=== PATIENT | female | born 1965 | race Caucasian/White ===

== ENCOUNTER 2018-08-26 13:20 | Emergency (ER) | payer MEDICARE, BC ==
[~2018-08-26] VITALS: Ht 170.2 cm; Wt 78.5 kg
[~2018-08-26 13:20] MED LIST: AMLODIPINE BESY10 MG PO; GABAPENTIN300 MG PO; GLIPIZIDE10 MG PO; HYDROCODON-ACE1 EA10 PO; METOPROLOL SUCC25 MG PO; PANTOPRAZOLE SO40 MG PO; RENVELA800 MG PO
[2018-08-26] MEDS ORDERED: VITAMIN D1000 UNIT PO (13:34)
[2018-08-26] MEDS ORDERED: LOSARTAN POTASS50 MG PO (13:35)
--- NOTE | 2018-08-27 14:02 | EKG ---
[facility] [address] [facility] [address] [facility] [place], [place] [address] Signed Sinus rhythm with occasional premature ventricular complexes Otherwise normal ECG No previous ECGs available Confirmed by MINE FUCHS DO ([id number]) on 08/27/2018 2:02:36 PM Electronically Signed By: MINE FUCHS DO 08/27/18 1402 PATIENT NAME: STEVEN ARCE Electrocardiogram DATE OF : 67 PHYSICIAN: MINE FUCHS DO REPORT #: [id number] REPORT IS CONFIDENTIAL AND NOT TO BE RELEASED WITHOUT AUTHORIZATION
== END 2018-08-26 22:06 | disposition short-term general hospital (02) ==
LOC: ED 13:20
DX: T80.89XA Other complications following infusion, transfusion and therapeutic injection, initial encounter (principal); J81.1 Chronic pulmonary edema; E11.9 Type 2 diabetes mellitus without complications; I10 Essential (primary) hypertension; Z99.2 Dependence on renal dialysis; Z88.1 Allergy status to other antibiotic agents; Z88.5 Allergy status to narcotic agent; Z79.899 Other long term (current) drug therapy
CPT/HCPCS: 36600; 70450; 71046; 71260; 80053; 82803; 85025; 93005; 93010; 99285-25; Q9967

== ENCOUNTER 2019-01-14 11:11 | Emergency (ER) | payer MEDICARE, BC ==
[~2019-01-14] VITALS: Ht 170.2 cm; Wt 74.8 kg
--- OUTSIDE RECORDS SUMMARY | ~2019-01-14 | XMS | Encounter Summary ---
Demographics + + + | Address | [address] | | | [place] [address] | + + + | Home Phone | | + + + | Preferred Language | Unknown | + + + | Marital Status | Single | + + + | Religion Affiliation | Unknown | + + + | Race | Unknown | + + + | Ethnic Group | Other Race | + + + Author + + + | Author | [facility] | + + + | Organization | [facility] | + + + | Address | Unknown | + + + | Phone | Unavailable | + + + Care Team Providers + +------+ + | Care Criminalist Name | Role | Phone | + +------+ + PCP | Unavailable | + +------+ + Encounter Details +--------+ + + + + | Date | Type | Department | Care Team | Description | +--------+ + + + + | 10/16/ | Lab | LAB IMMUNOGENETIC | | | | 2015 | Requisition | AND TRANSPLANT LAB | | | | | | [address] | | | | | | [address] [place], | | | | | | [place] [address] | | | +--------+ + + + + Social History + +-------+ +--------+------+ | Tobacco Use | Types | Packs/Day | Years | Date | | | | | Used | | + +-------+ +--------+------+ | Never Assessed | | | | | + +-------+ +--------+------+ + + + | Sex Assigned at | Date Recorded | | | | + + + | Not on file | | + + + + + + + | Job Start Date | Occupation | Industry | + + + + | Not on file | Not on file | Not on file | + + + + + + + + | Travel History | Travel Start | Travel End | + + + + + + | No recent travel history available. | + + documented as of this encounter Plan of Treatment Not on filedocumented as of this encounter Procedures + +--------+ + + + | Procedure Name | Priori | Date/Time | Associated Diagnosis | Comments | | | ty | | | | + +--------+ + + + | LIT FLOW HLA AB PRA | Routin | 10/17/2015 | | | | SCREEN I/II | e | 2:21 PM | | | | | | PDT | | | + +--------+ + + + | LIT FLOW HLA II AB | Routin | 10/17/2015 | | | | AG ID, BLOOD | e | 2:21 PM | | | | | | PDT | | | + +--------+ + + + | LIT FLOW HLA I AB AG | Routin | 10/17/2015 | | Results for this | | ID, BLOOD | e | 2:21 PM | | procedure are in the | | | | PDT | | results section. | + +--------+ + + + documented in this encounter Results LIT FLOW HLA AB PRA SCREEN I/II (10/17/2015 2:21 PM PDT) + + | Specimen | + + | Blood - Blood | | (substance) | + + + + + + + | Performing | Address | City/State/Zipcode | Phone Number | | Organization | | | | + + + + + | [facility] - | [address] | [place] [address] | | | IMMUNOGENETICS/TRANS | [address] | | | | [facility] | | | | + + + + + LIT FLOW HLA II AB AG ID, BLOOD (10/17/2015 2:21 PM PDT) + + | Specimen | + + | Blood - Blood | | (substance) | + + + + + + + | Performing | Address | City/State/Zipcode | Phone Number | | Organization | | | | + + + + + | [facility] - | [address] | [place] [address] | | | IMMUNOGENETICS/TRANS | [address] | | | | [facility] | | | | + + + + + LIT FLOW HLA I AB AG ID, BLOOD (10/17/2015 2:21 PM PDT) + + + + + + | Component | Value | Ref Range | Performed | Pathologist | | | | | At | Signature | + + + + + + | LABEL ONLY | Please see lab report | | [facility] - | | | - LIT | for result. | | IMMUNOGENET | | | | | | ICS/TRANSPL | | | | | | ANT | | | | | | LABORATORY | | + + + + + + + + | Specimen | + + | Blood - Blood | | (substance) | + + + + + + + | Performing | Address | City/State/Zipcode | Phone Number | | Organization | | | | + + + + + | [facility] - | [address] | [place] [address] | | | IMMUNOGENETICS/TRANS | [address] | | | | [facility] LAB[facility] | | | | + + + + + documented in this encounter Visit Diagnoses Not on filedocumented in this encounter"
--- OUTSIDE RECORDS SUMMARY | ~2019-01-14 | XMS | Encounter Summary ---
Demographics + + + | Address | [address] | | | [place] [address] | + + + | Home Phone | | + + + | Preferred Language | Unknown | + + + | Marital Status | Single | + + + | Jewish Affiliation | Unknown | + + + | Race | Unknown | + + + | Ethnic Group | Other Race | + + + Author + + + | Author | [facility] | + + + | Organization | [facility] | + + + | Address | Unknown | + + + | Phone | Unavailable | + + + Care Team Providers + +------+ + | Care Associate Chemist Name | Role | Phone | + +------+ + PCP | Unavailable | + +------+ + Encounter Details +--------+ + + + + | Date | Type | Department | Care Team | Description | +--------+ + + + + | 03/11/ | Lab | LAB IMMUNOGENETIC | | | | 2014 | Requisition | AND TRANSPLANT LAB | | | | | | [address] | | | | | | [address] [place], | | | | | | [place] [address] | | | +--------+ + + + [...] FLOW HLA AB PRA | Routin | 03/11/2015 | | | | SCREEN I/II | e | 9:14 AM | | | | | | PST | | | + +--------+ + + + documented in this encounter Results LIT FLOW HLA AB PRA SCREEN I/II (03/11/2015 9:14 AM PST) + + | Specimen | + + | Blood - Blood | | (substance) | + + + + + + + | Performing | Address | City/State/Zipcode | Phone Number | | Organization | | | | + + + + + | [facility] - | [address] | [place] [address] | | | IMMUNOGENETICS/TRANS | [address] | | | | [facility] | | | | + + + + + documented in this encounter Visit Diagnoses Not on filedocumented in this encounter"
--- OUTSIDE RECORDS SUMMARY | ~2019-01-14 | XMS | Encounter Summary ---
Demographics + + + | Address | [address] | | | [place] [address] | + + + | Home Phone | | + + + | Preferred Language | Unknown | + + + | Marital Status | Single | + + + | Tenriism Affiliation | Unknown | + + + | Race | Unknown | + + + | Ethnic Group | Other Race | + + + Author + + + | Author | [facility] | + + + | Organization | [facility] | + + + | Address | Unknown | + + + | Phone | Unavailable | + + + Care Team Providers + +------+ + | Care Highway Painter Helper Name | Role | Phone | + +------+ + PCP | Unavailable | + +------+ + Encounter Details +--------+ + + + + | Date | Type | Department | Care Team | Description | +--------+ + + + + | 06/22/ | Lab | LAB IMMUNOGENETIC | | | | 2018 | Requisition | AND TRANSPLANT LAB | | | | | | [address] | | | | | | [address] [place], | | | | | | [place] [address] | | | +--------+ + + + [...] FLOW HLA AB PRA | Routin | 06/13/2018 | | | | SCREEN I/II | e | 12:00 AM | | | | | | PDT | | | + +--------+ + + + documented in this encounter Results LIT FLOW HLA AB PRA SCREEN I/II (06/13/2018 12:00 AM PDT) + + | Specimen | + + | Blood - Blood | | (substance) | + + + + + + + | Performing | Address | City/State/Zipcode | Phone Number | | Organization | | | | + + + + + | [facility] - | [address] | [place] [address] | | | IMMUNOGENETICS/TRANS | [address] | | | | [facility] | | | | + + + + + documented in this encounter Visit Diagnoses Not on filedocumented in this encounter"
--- OUTSIDE RECORDS SUMMARY | ~2019-01-14 | XMS | Encounter Summary ---
Demographics + + + | Address | [address] | | | [place] [address] | + + + | Home Phone | | + + + | Preferred Language | Unknown | + + + | Marital Status | Single | + + + | Congregation Affiliation | Unknown | + + + | Race | Unknown | + + + | Ethnic Group | Other Race | + + + Author + + + | Author | [facility] | + + + | Organization | [facility] | + + + | Address | Unknown | + + + | Phone | Unavailable | + + + Care Team Providers + +------+ + | Care Housing Assistant Name | Role | Phone | + +------+ + PCP | Unavailable | + +------+ + Encounter Details +--------+ + + + + | Date | Type | Department | Care Team | Description | +--------+ + + + + | 09/28/ | Lab | LAB IMMUNOGENETIC | | | | 2016 | Requisition | AND TRANSPLANT LAB | | | | | | [address] | | | | | | [address] [place], | | | | | | [place] [address] | | | +--------+ + + + [...] FLOW HLA II AB | Routin | 09/16/2016 | | | | AG ID, BLOOD | e | 2:17 PM | | | | | | PDT | | | + +--------+ + + + documented in this encounter Results LIT FLOW HLA II AB AG ID, BLOOD (09/16/2016 2:17 PM PDT) + + | Specimen | + + | Blood - Blood | | (substance) | + + + + + + + | Performing | Address | City/State/Zipcode | Phone Number | | Organization | | | | + + + + + | [facility] - | [address] | [place] [address] | | | IMMUNOGENETICS/TRANS | [address] | | | | [facility] | | | | + + + + + documented in this encounter Visit Diagnoses Not on filedocumented in this encounter"
--- OUTSIDE RECORDS SUMMARY | ~2019-01-14 | XMS | Encounter Summary ---
Demographics + + + | Address | [address] | | | [place] [address] | + + + | Home Phone | | + + + | Preferred Language | Unknown | + + + | Marital Status | Single | + + + | Uatsdin Affiliation | Unknown | + + + | Race | Unknown | + + + | Ethnic Group | Other Race | + + + Author + + + | Author | [facility] | + + + | Organization | [facility] | + + + | Address | Unknown | + + + | Phone | Unavailable | + + + Care Team Providers + +------+ + | Care Dealer Development Manager Name | Role | Phone | + +------+ + PCP | Unavailable | + +------+ + Encounter Details +--------+ + + + + | Date | Type | Department | Care Team | Description | +--------+ + + + + | 08/19/ | Lab | LAB IMMUNOGENETIC | | | | 2015 | Requisition | AND TRANSPLANT LAB | | | | | | [address] | | | | | | [address] [place], | | | | | | [place] [address] | | | +--------+ + + + [...] FLOW HLA AB PRA | Routin | 08/20/2015 | | | | SCREEN I/II | e | 2:18 PM | | | | | | PDT | | | + +--------+ + + + documented in this encounter Results LIT FLOW HLA AB PRA SCREEN I/II (08/20/2015 2:18 PM PDT) + + | Specimen | + + | Blood - Blood | | (substance) | + + + + + + + | Performing | Address | City/State/Zipcode | Phone Number | | Organization | | | | + + + + + | [facility] - | [address] | [place] [address] | | | IMMUNOGENETICS/TRANS | [address] | | | | [facility] | | | | + + + + + documented in this encounter Visit Diagnoses Not on filedocumented in this encounter"
--- OUTSIDE RECORDS SUMMARY | ~2019-01-14 | XMS | Encounter Summary ---
Demographics + + + | Address | [address] | | | [place] [address] | + + + | Home Phone | | + + + | Preferred Language | Unknown | + + + | Marital Status | | + + + | Congregational Affiliation | 1077 | + + + | Race | Unknown | + + + | Ethnic Group | Unknown | + + + Author + + + | Author | [facility] (Historical as of | | | 10-29-18) | + + + | Organization | [facility] (Historical as of | | | 10-29-18) | + + + | Address | Unknown | + + + | Phone | Unavailable | + + + Support + + +---------+ + | Name | Relationship | Address | Phone | + + +---------+ + | Eron Sheth | ECON | Unknown | | + + +---------+ + Care Team Providers + +------+ + | Care Warp Tying Machine Tender Name | Role | Phone | + +------+ + | Arron Buckner MD | PCP | Unavailable | + +------+ + Reason for Visit + + + | Reason | Comments | + + + | End Stage Renal | | | Disease | | + + + Encounter Details +--------+---------+ + + + | Date | Type | Department | Care Team | Description | +--------+---------+ + + + | 10/27/ | Office | [facility] | Nelsy Hernandez | End stage renal | | 2019 | Visit | Nephrology [address] | MD [address] | failure on dialysis | | | | [address] [facility] | [facility] | (HCC) (Primary Dx) | | | | [place] | [place] | | | | | [address] | [address] | | | | | [phone] | [phone] | | | | | | | | +--------+---------+ + + + Social History + +-------+ +--------+------+ | Tobacco Use | Types | Packs/Day | Years | Date | | | | | Used | | + +-------+ +--------+------+ | Never Smoker | | | | | + +-------+ +--------+------+ + +---+---+---+ | Smokeless Tobacco: | | | | | Never Used | | | | + +---+---+---+ + + +---------+ + | Alcohol Use | Drinks/We | oz/Week | Comments | | | ek | | | + + +---------+ + | No | | | | + + +---------+ + + + + | Sex Assigned at | Date Recorded | | | | + + + | Not on file | | + + + as of this encounter Last Filed Vital Signs + + + + | Vital Sign | Reading | Time Taken | + + + + | Blood Pressure | 151/73 | 10/27/2018 1:56 PM PDT | + + + + | Pulse | 63 | 10/27/2018 1:56 PM PDT | + + + + | Temperature | - | - | + + + + | Respiratory Rate | - | - | + + + + | Oxygen Saturation | 96% | 10/27/2018 1:56 PM PDT | + + + + | Inhaled Oxygen | - | - | | Concentration | | | + + + + | Weight | 78.4 kg (172 lb 12.8 | 10/27/2018 1:56 PM PDT | | | oz) | | + + + + | Height | 170.2 cm (5' 7") | 10/27/2018 1:56 PM PDT | + + + + | Body Mass Index | 27.06 | 10/27/2018 1:56 PM PDT | + + + + in this encounter Progress Notes Nelsy Hernandez MD - 10/27/2018 2:00 PM PDTFormatting of this note may be different fr om the original. [facility] visit for ESRD Subjective: Ms. Marie Abdi presents for Comprehensive monthly face to face evaluation. she is currently on dialysis for ESRD. Full note is documented in dialysis facility EMR . MEDS AND LABS ARE REVIEWED from monthly labs drawn at his dialysis facility for this month Current Outpatient Prescriptions: amLODIPine (NORVASC) 10 MG tablet, Take 1 tablet by mouth daily., Disp: 90 tablet, Rfl : 3 folic acid (FOLVITE) 1 MG tablet, folic acid 1 mg tablet Take 1 tablet every day by o ral route., Disp: , Rfl: gabapentin (NEURONTIN) 300 MG capsule, Take 300 mg by mouth 3 (three) times daily. Ind ications: Neuropathic Pain, Disp: , Rfl: glipiZIDE (GLUCOTROL) 10 MG tablet, Take 10 mg by mouth 2 (two) times daily before ata ls., Disp: , Rfl: hydrALAZINE (APRESOLINE) 25 MG tablet, Take 1 tablet by mouth 3 (three) times daily., Disp: 270 tablet, Rfl: 3 losartan (COZAAR) 100 MG tablet, Take 1 tablet by mouth daily., Disp: 90 tablet, Rfl: 3 MICROLET LANCETS MISC, Microlet Lancet, Disp: , Rfl: pantoprazole (PROTONIX) 20 MG tablet, Take 40 mg by mouth every morning before breakfa st., Disp: , Rfl: sevelamer (RENVELA) 800 MG tablet, Take 3 tablets by mouth 3 (three) times daily with meals., Disp: 810 tablet, Rfl: 3 VITAMIN D, CHOLECALCIFEROL, PO, Take 1,000 Units by mouth daily., Disp: , Rfl: Allergies Allergen Reactions Amoxicillin Rash and Nausea Only Filgrastim Other (See Comments) and Nausea and Vomiting DIARRHEA Nsaids Other (See Comments) Kidney transplant Codeine Headache and Nausea and Vomiting Headache Hydromorphone Nausea and Vomiting and Nausea Only DIZZINESS Current Outpatient Prescriptions: amLODIPine (NORVASC) 10 MG tablet, Take 1 tablet by mouth daily., Disp: 90 tablet, Rfl : 3 folic acid (FOLVITE) 1 MG tablet, folic acid 1 mg tablet Take 1 tablet every day by o ral route., Disp: , Rfl: gabapentin (NEURONTIN) 300 MG capsule, Take 300 mg by mouth 3 (three) times daily. Ind ications: Neuropathic Pain, Disp: , Rfl: glipiZIDE (GLUCOTROL) 10 MG tablet, Take 10 mg by mouth 2 (two) times daily before ata ls., Disp: , Rfl: hydrALAZINE (APRESOLINE) 25 MG tablet, Take 1 tablet by mouth 3 (three) times daily., Disp: 270 tablet, Rfl: 3 losartan (COZAAR) 100 MG tablet, Take 1 tablet by mouth daily., Disp: 90 tablet, Rfl: 3 MICROLET LANCETS MISC, Microlet Lancet, Disp: , Rfl: pantoprazole (PROTONIX) 20 MG tablet, Take 40 mg by mouth every morning before breakfa st., Disp: , Rfl: sevelamer (RENVELA) 800 MG tablet, Take 3 tablets by mouth 3 (three) times daily with meals., Disp: 810 tablet, Rfl: 3 VITAMIN D, CHOLECALCIFEROL, PO, Take 1,000 Units by mouth daily., Disp: , Rfl: Physical Exam Blood pressure 151/73, pulse 63, height 1.702 m (5' 7"), weight 78.4 kg (172 lb 12.8 oz), S pO2 96 %. Access: has an AVf in right upper extremity with good thrill and bruit. Assessment and Plan: The following issues were identified and documented in dialysis facil ity EMR. 1. End-stage renal disease: We will continue the patient on dialysis as prescribed. . KT/ v is being monitored and parameters adjusted accordingly. 2. Access: AVF is being used successfully. 3. Blood pressure: We will monitor this during dialysis treatment. Not cotroled now. 4. Anemia Hb is monitored closely; Iron studies are adequate. adjust Epo per dialysis unit protocol. 5. Secondary hyperparathyroidism (PTH Goal 150-600): will be managed per dialysis unit s protocol. 6. Nutrition ( desired albumin above 3.5): Encouraged high protein intake and achieving 3 meals/ day 7. CA/PHOS control: adjust binders and vit d analogue per unit's protocol. 8. ASSESSMENT FOR pd CATHETER PLACEMENT; NOT A CANDIDATE DUE TO ADHESIONS. for further discussion please obtain EMR records through dialysis facility . NELSY HERNANDEZ MD, FASN, FACPin this encounter Plan of Treatment +--------+---------+ + + + | Date | Type | Specialty | Care Team | Description | +--------+---------+ + + + | 02/02/ | Office | Nephrology | Nelsy Hernandez | | | 2018 | Visit | | MD [address] | | | | | | [facility] [place] | | | | | | [place] | | | | | | [address] | | | | | | [phone] | | | | | | | | +--------+---------+ + + + | 03/02/ | Office | Nephrology | Nelsy Hernandez | | | 2018 | Visit | | MD [address] | | | | | | [facility] [place] | | | | | | [place] | | | | | | [address] | | | | | | [phone] | | | | | | | | +--------+---------+ + + + as of this encounter Visit Diagnoses + + | Diagnosis | + + | End stage renal failure on dialysis (HCC) - Primary | + + | End stage renal disease | + +
--- OUTSIDE RECORDS SUMMARY | ~2019-01-14 | XMS | Encounter Summary ---
Demographics + + + | Address | [address] | | | [place] [address] | + + + | Home Phone | | + + + | Preferred Language | Unknown | + + + | Marital Status | Single | + + + | Church Affiliation | Unknown | + + + | Race | Unknown | + + + | Ethnic Group | Other Race | + + + Author + + + | Author | [facility] | + + + | Organization | [facility] | + + + | Address | Unknown | + + + | Phone | Unavailable | + + + Care Team Providers + +------+ + | Care Project Production Engineer Name | Role | Phone | + +------+ + PCP | Unavailable | + +------+ + Encounter Details +--------+ + + + + | Date | Type | Department | Care Team | Description | +--------+ + + + + | 08/18/ | Lab | LAB IMMUNOGENETIC | | | | 2018 | Requisition | AND TRANSPLANT LAB | | | | | | [address] | | | | | | [address] [place], | | | | | | [place] [address] | | | +--------+ + + + [...] FLOW HLA AB PRA | Routin | 08/13/2017 | | | | SCREEN I/II | e | 12:00 AM | | | | | | PDT | | | + +--------+ + + + documented in this encounter Results LIT FLOW HLA AB PRA SCREEN I/II (08/13/2017 12:00 AM PDT) + + | Specimen | + + | Blood - Blood | | (substance) | + + + + + + + | Performing | Address | City/State/Zipcode | Phone Number | | Organization | | | | + + + + + | [facility] - | [address] | [place] [address] | | | IMMUNOGENETICS/TRANS | [address] | | | | [facility] | | | | + + + + + documented in this encounter Visit Diagnoses Not on filedocumented in this encounter"
--- OUTSIDE RECORDS SUMMARY | ~2019-01-14 | XMS | Encounter Summary ---
Demographics + + + | Address | [address] | | | [place] [address] | + + + | Home Phone | | + + + | Preferred Language | Unknown | + + + | Marital Status | Single | + + + | Mormonism Affiliation | Unknown | + + + | Race | Unknown | + + + | Ethnic Group | Other Race | + + + Author + + + | Author | [facility] | + + + | Organization | [facility] | + + + | Address | Unknown | + + + | Phone | Unavailable | + + + Care Team Providers + +------+ + | Care Sustainable Landscape Architect Name | Role | Phone | + +------+ + PCP | Unavailable | + +------+ + Encounter Details +--------+ + + + + | Date | Type | Department | Care Team | Description | +--------+ + + + + | 07/21/ | Lab | LAB IMMUNOGENETIC | | | | 2018 | Requisition | AND TRANSPLANT LAB | | | | | | [address] | | | | | | [address] [place], | | | | | | [place] [address] | | | +--------+ + + + [...] FLOW HLA AB PRA | Routin | 07/21/2017 | | | | SCREEN I/II | e | 11:11 AM | | | | | | PDT | | | + +--------+ + + + documented in this encounter Results LIT FLOW HLA AB PRA SCREEN I/II (07/21/2017 11:11 AM PDT) + + | Specimen | + + | Blood - Blood | | (substance) | + + + + + + + | Performing | Address | City/State/Zipcode | Phone Number | | Organization | | | | + + + + + | [facility] - | [address] | [place] [address] | | | IMMUNOGENETICS/TRANS | [address] | | | | [facility] | | | | + + + + + documented in this encounter Visit Diagnoses Not on filedocumented in this encounter"
--- OUTSIDE RECORDS SUMMARY | ~2019-01-14 | XMS | Encounter Summary ---
Demographics + + + | Address | [address] | | | [place] [address] | + + + | Home Phone | | + + + | Preferred Language | Unknown | + + + | Marital Status | Single | + + + | Taoist Affiliation | Unknown | + + + [...] Team Providers + +------+ + | Care Quality Control Assistant Name | Role | Phone | + +------+ + PCP | Unavailable | + +------+ + Encounter Details +--------+ + + + + | Date | Type | Department | Care Team | Description | +--------+ + + + + | 04/02/ | Lab | LAB IMMUNOGENETIC | | | | 2015 | Requisition | AND TRANSPLANT LAB | | | | | | [address] | | | | | | [address] [place], | | | | | | [place] [address] | | | +--------+ + + + [...] FLOW HLA AB PRA | Routin | 04/02/2015 | | | | SCREEN I/II | e | 2:07 PM | | | | | | PST | | | + +--------+ + + + documented in this encounter Results LIT FLOW HLA AB PRA SCREEN I/II (04/02/2015 2:07 PM PST) + + | Specimen | + + | Blood - Blood | | (substance) | + + + + + + + | Performing | Address | City/State/Zipcode | Phone Number | | Organization | | | | + + + + + | [facility] - | [address] | [place] [address] | | | IMMUNOGENETICS/TRANS | [address] | | | | [facility] | | | | + + + + + documented in this encounter Visit Diagnoses Not on filedocumented in this encounter"
--- OUTSIDE RECORDS SUMMARY | ~2019-01-14 | XMS | Encounter Summary ---
Demographics + + + | Address | [address] | | | [place] [address] | + + + | Home Phone | | + + + | Preferred Language | Unknown | + + + | Marital Status | Single | + + + | Gnosticism Affiliation | Unknown | + + + | Race | Unknown | + + + | Ethnic Group | Other Race | + + + Author + + + | Author | [facility] | + + + | Organization | [facility] | + + + | Address | Unknown | + + + | Phone | Unavailable | + + + Care Team Providers + +------+ + | Care Rock Contractor Name | Role | Phone | + +------+ + PCP | Unavailable | + +------+ + Encounter Details +--------+ + + + + | Date | Type | Department | Care Team | Description | +--------+ + + + + | 10/20/ | Lab | LAB [facility] | | | | 2016 | Requisition | [facility] | | | | | | [address] | | | | | | [address] [place], | | | | | | [place] [address] | | | +--------+ + + + [...] FLOW HLA AB PRA | Routin | 10/20/2016 | | | | SCREEN I/II | e | 7:32 AM | | | | | | PDT | | | + +--------+ + + + | LIT FLOW HLA II AB | Routin | 10/20/2016 | | | | AG ID, BLOOD | e | 7:32 AM | | | | | | PDT | | | + +--------+ + + + | LIT FLOW HLA I AB AG | Routin | 10/20/2016 | | Results for this | | ID, BLOOD | e | 7:32 AM | | procedure are in the | | | | PDT | | results section. | + +--------+ + + + documented in this encounter Results LIT FLOW HLA AB PRA SCREEN I/II (10/20/2016 7:32 AM PDT) + + | Specimen | + + | Blood - Blood | | (substance) | + + + + + + + | Performing | Address | City/State/Zipcode | Phone Number | | Organization | | | | + + + + + | [facility] - | [address] | [place] [address] | | | IMMUNOGENETICS/TRANS | [address] | | | | [facility] | | | | + + + + + LIT FLOW HLA II AB AG ID, BLOOD (10/20/2016 7:32 AM PDT) + + | Specimen | + + | Blood - Blood | | (substance) | + + + + + + + | Performing | Address | City/State/Zipcode | Phone Number | | Organization | | | | + + + + + | [facility] - | [address] | [place] [address] | | | IMMUNOGENETICS/TRANS | [address] | | | | [facility] | | | | + + + + + LIT FLOW HLA I AB AG ID, BLOOD (10/20/2016 7:32 AM PDT) + + + + + + [...] + + + | [facility] - | [address] | [place] [address] | | | IMMUNOGENETICS/TRANS | [address] | | | | [facility] | | | | + + + + + documented in this encounter Visit Diagnoses Not on filedocumented in this encounter"
--- OUTSIDE RECORDS SUMMARY | ~2019-01-14 | XMS | Clinical Summary ---
Demographics + + + | Address | [address] | | | [place] [address] | + + + | Home Phone | | + + + | Preferred Language | Unknown | + + + | Marital Status | | + + + | Hoahaoism Affiliation | 1077 | + + + | Race | Unknown | + + + | Ethnic Group | Unknown | + + + Author + + + | Author | [facility] | | | and [place] | + + + | Organization | [facility] | | | and [place] | + + + | Address | Unknown | + + + | Phone | Unavailable | + + + Support + + + + + | Name | Relationship | Address | Phone | + + + + + | Eron Abdi | ECON | [address] | | | | [place], | | | | | [place] [address] | | + + + + + | Eron Sheth | ECON | Unknown | | + + + + + Care Team Providers + +------+ + | Care Lead Ruby On Rails Developer Name | Role | Phone | + +------+ + | Arron Buckner MD | PCP | Unavailable | + +------+ + Allergies + + + + + + | Active Allergy | Reactions | Severity | Noted | Comments | | | | | Date | | + + + + + + | Amoxicillin | Nausea Only, Rash | Medium | | | + + + + + + | Codeine Sulfate | Nausea And Vomiting | Low | | Headache | + + + + + + | Filgrastim Injection | Nausea And Vomiting | Low | 05/23/19 | DIARRHEA | | | | | 14 | | + + + + + + | Hydromorphone Hcl | Nausea Only | Low | | DIZZINESS | + + + + + + | Nsaids | | | 05/03/19 | Kidney transplant | | | | | 14 | | + + + + + + Medications + + + +---------+------+------+-------+ | Medication | Sig | Dispensed | Refills | Star | End | Statu | | | | | | t | Date | s | | | | | | Date | | | + + + +---------+------+------+-------+ | cholecalciferol | Take 1,000 Units by | | 0 | 11/13 | | Activ | | (VITAMIN D-3) 1,000 | mouth Daily. | | | 07/02 | | e | | units tablet | | | | 12 | | | + + + +---------+------+------+-------+ | gabapentin | Take 600 mg by mouth | | 0 | | | Activ | | (NEURONTIN) 300 mg | 3 times daily. | | | | | e | | capsule | | | | | | | + + + +---------+------+------+-------+ | glipiZIDE | Take 10 mg by mouth | | 0 | 11/13 | | Activ | | (GLUCOTROL) 10 MG | every morning | | | 07/02 | | e | | tablet | (before breakfast). | | | 12 | | | + + + +---------+------+------+-------+ | | Take 1 tablet by | | 0 | | | Activ | | HYDROcodone-acetamin | mouth 3 times daily. | | | | | e | | ophen (NORCO) 5-325 | | | | | | | | mg per tablet | | | | | | | + + + +---------+------+------+-------+ | amLODIPine | Take 10 mg by mouth | | 0 | | | Activ | | (NORVASC) 10 MG | Daily. | | | | | e | | tablet | | | | | | | + + + +---------+------+------+-------+ | sevelamer | Take 2,400 mg by | | 0 | | | Activ | | carbonate (RENVELA) | mouth 3 times daily | | | | | e | | 800 mg tablet | (with meals). With | | | | | | | | meals | | | | | | + + + +---------+------+------+-------+ | pantoprazole | Take 40 mg by mouth | | 0 | | | Activ | | (PROTONIX) 20 mg | every morning | | | | | e | | tablet | (before breakfast). | | | | | | + + + +---------+------+------+-------+ | sevelamer | Take 1,600 mg by | | 0 | | | Activ | | carbonate (RENVELA) | mouth. With snacks | | | | | e | | 800 mg tablet | | | | | | | + + + +---------+------+------+-------+ | metoprolol | Take 25 mg by mouth | | 0 | | | Activ | | succinate | Daily. | | | | | e | | (TOPROL-XL) 25 mg 24 | | | | | | | | hr tablet | | | | | | | + + + +---------+------+------+-------+ | azithromycin | Take 250 mg by mouth | | 0 | | | Activ | | (ZITHROMAX) 250 mg | Daily. Take 2 | | | | | e | | tablet | tablets now then one | | | | | | | | daily for 4 days | | | | | | + + + +---------+------+------+-------+ | cefdinir (OMNICEF) | Take 1 capsule by | 4 | 0 | 05/1 | | Activ | | 300 mg | mouth Daily. | capsule | | 3/20 | | e | | capsuleIndications: | Indications: | | | 18 | | | | Community Acquired | Community Acquired | | | | | | | Pneumonia | Pneumonia | | | | | | + + + +---------+------+------+-------+ | Folic Acid-Vit | Take 5 mg by mouth | | 0 | | | Activ | | B6-Vit B12 (FOLBEE | daily. | | | | | e | | PO) | | | | | | | + + + +---------+------+------+-------+ | folic acid 1 mg | folic acid 1 mg | | 0 | | | Activ | | tablet | tablet Take 1 tablet | | | | | e | | | every day by oral | | | | | | | | route. | | | | | | + + + +---------+------+------+-------+ | Folic Acid-Vit | Take 1 tablet by | | 0 | | | Activ | | B6-Vit B12 (FOLBEE) | mouth daily | | | | | e | | 2.5-25-1 MG TABS | | | | | | | + + + +---------+------+------+-------+ | hydrALAZINE | Take 1 tablet by | | 0 | 08/13 | 08/13 | Activ | | (APRESOLINE) 25 mg | mouth 3 (three) | | | 11/01 | 10/01 | e | | tablet | times daily. | | | 19 | 20 | | + + + +---------+------+------+-------+ | MICROLET LANCETS | Microlet Lancet | | 0 | | | Activ | | MISC | | | | | | e | + + + +---------+------+------+-------+ | losartan (COZAAR) | Take 1 tablet by | | 0 | 08/13 | 08/13 | Activ | | 100 MG tablet | mouth daily. | | | 8/20 | 10/01 | e | | | | | | 19 | 20 | | + + + +---------+------+------+-------+ | amLODIPine | amlodipine 5 mg | | 0 | | | Activ | | (NORVASC) 5 mg | tablet 1 PO QD | | | | | e | | tablet | | | | | | | + + + +---------+------+------+-------+ | metoprolol | Toprol XL 25 mg | | 0 | | | Activ | | succinate | tablet,extended | | | | | e | | (TOPROL-XL) 25 mg 24 | release 1 PO QD | | | | | | | hr tablet | | | | | | | + + + +---------+------+------+-------+ | sevelamer | Take 3 tablets by | | 0 | 02/0 | | Activ | | carbonate (RENVELA) | mouth 3 (three) | | | 8/20 | | e | | 800 mg tablet | times daily with | | | 19 | | | | | meals. | | | | | | + + + +---------+------+------+-------+ | B Kiyrmqf-A-Zbpgo | | | 0 | 06/0 | | Activ | | Acid (FOLBEE PLUS) | | | | 9/20 | | e | | TABS | | | | 19 | | | + + + +---------+------+------+-------+ | ciprofloxacin | | | 0 | 01/0 | | Activ | | (CIPRO) 500 mg | | | | 7/20 | | e | | tablet | | | | 19 | | | + + + +---------+------+------+-------+ | CIPRODEX otic | | | 0 | 11/0 | | Activ | | suspension | | | | 8/20 | | e | | | | | | 18 | | | + + + +---------+------+------+-------+ | | | | 0 | 11/0 | | Activ | | sulfamethoxazole-tri | | | | 1/20 | | e | | methoprim | | | | 18 | | | | (BACTRIM,SEPTRA) | | | | | | | | 400-80 MG per tablet | | | | | | | + + + +---------+------+------+-------+ Active Problems + + + | Problem | Noted Date | + + + | Lila santos | 10/11/2015 | + + + | Jesenia | 02/05/2015 | + + + + + | Overview: Last Assessment & Plan: No significant valvular | | pathology identified no further evaluation needed insuring | | echocardiogram | + + + + + | Essential hypertension | 02/05/2015 | + + + + + | Overview: Overview: | | Overview: | | ICD-10 Record update | | | | Last Assessment & Plan: | | Well-controlled on current therapy she will continue | + + + + + | End stage renal failure on dialysis | 05/08/2014 | + + + + + | Overview: Last Assessment & Plan: She is being evaluated for | | renal transplantation we'll perform coronary angiography | | abdominal aortography and bilateral iliac runoff hopefully we | | will not find obstructive atherosclerotic plaque and we will be | | able to clear her from a coronary disease standpoint | + + + + + | Cancer, Skin, Basal Cell | 01/12/2013 | + + + + + | Overview: ICD-10 Record update | | | | Overview: | | Overview: | | ICD-10 Record update | + + + + + | Hyperlipidemia | 01/12/2013 | + + + | Gout | 01/12/2013 | + + + + + | Overview: ICD-10 Record update | + + + + + | Anemia in CKD (chronic kidney disease) | 01/12/2013 | + + + + + | Overview: ICD-10 Record update | + + + + + | GERD | 01/12/2013 | + + + | Osteopenia, drug induced | 01/12/2013 | + + + | 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 | + + + + + | Overview: ?Familial hereditary nephritis | | | | Overview: | | Overview: | | ?Familial hereditary nephritis | + + + +---+ | Type 2 diabetes mellitus with nephropathy | | + +---+ | History of kidney transplant | | + +---+ + + | Overview: (V67.0) Dec donor | | | | Overview: | | Overview: | | (V67.0) Dec donor | + + Resolved Problems + + + + | Problem | Noted | Resolved | | | Date | Date | + + + + | HCAP (healthcare-associated pneumonia) | 07/22/19 | | | | 18 | 9 | + + + + | Tachycardia | 02/05/20 | | | | 16 | 9 | + + + + + + | Overview: Last Assessment & Plan: She appears to have an | | element of sinus tachycardia her heart rate came down nicely with | | rest. I suspect that this is appropriate tachycardia I've asked | | her to increase her volume intake she does not appear infected | | now and we do not think she has significant cardiac pathology I | | would continue to watch at this point this does not appear to be | | atrial fibrillation or a PSVT | + + + + + + | Type 2 diabetes mellitus | 02/04/20 | | | | 16 | 9 | + + + + | Tendonitis of elbow, left | 07/19/19 | | | | 16 | 9 | + + + + | Tendinitis of elbow or forearm | 07/19/19 | | | | 16 | 9 | + + + + | End stage renal disease | 07/17/19 | | | | 16 | 9 | + + + + | Septic arthritis of right foot | 07/17/19 | | | | 16 | 9 | + + + + | Pyogenic arthritis | 07/17/19 | | | | 16 | 9 | + + + + | Hypertension | 01/13/20 | | | | 13 | 9 | + + + + + + | Overview: ICD-10 Record update | + + + + + + | Kidney mass | 01/13/20 | | | | 13 | 9 | + + + + | Proteinuria | 01/13/20 | | | | 13 | 9 | + + + + + + | Overview: Onset 2008 | + + + + + + | Rejection, Chronic | 01/13/20 | | | | 13 | 9 | + + + + + + | Overview: ICD-10 Record update | + + + + + + | Immunosuppression: Prophylactic immunotherapy | 01/13/20 | | | | 13 | 9 | + + + + + + | Overview: d/c steroid - late self directed, Thymo induction, | | MMF, TAC and pred, OKT3 induction | + + + +---+ + | Pancytopenia | | | | | | 9 | + +---+ + + + | Overview: ICD-10 Record update | + + + +---+ + | Care after organ transplant | | | | | | 9 | + +---+ + Encounters +--------+---------+ + + + | Date | Type | Specialty | Care Team | Description | +--------+---------+ + + + | 01/03/ | Office | Nephrology | Chantelle Aly | End stage renal | | 2019 | Visit | | MD Denise | failure on dialysis | | | | | | ([facility] (Primary Dx) | +--------+---------+ + + + from Last 3 Months Immunizations + + + + | Name | Dates Previously Given | Next Due | + + + + | HEP B, 3 DOSE | 06/01/2014, 02/05/2014, 01/01/2014, | | | (ADULT) | 12/07/2013 | | + + + + | INFLUENZA PF 19 Y OR | 12/13/2014 | | | >,QUADRIVALENT | | | | RECOMBINANT | | | + + + + | INFLUENZA TRIV | 12/13/2016, 01/12/2014, 01/12/2014 | | | W/PRES(PED/ADOL/ADUL | | | | T),MULTIDOSE | | | + + + + | INFLUENZA, | 12/13/2016, 01/12/2014 | | | UNSPECIFIED | | | | FORMULATION | | | + + + + | PNEUMOCOCCAL | 12/13/2014 | | | CONJUGATE 13-VALENT | | | | (PCV13) | | | + + + + | PNEUMOCOCCAL | 12/04/2013 | | | POLYSACCHARIDE | | | | 23-VALENT (PPSV23) | | | + + + + | TDAP, (ADOL/ADULT) | 03/05/2015, 06/29/2013 | | + + + + Family History + + +---------+ + | Medical History | Relation | Name | Comments | + + +---------+ + | Cancer | Maternal | | | | | Grandmoth | | | | | er | | | + + +---------+ + | Anesth problems | Mother | MADELON | | + + +---------+ + | Other (see comment) | Mother | MADELON | | + + +---------+ + | Kidney disease | Mother | MADELON | | + + +---------+ + | Cancer | Paternal | | | | | Grandfath | | | | | er | | | + + +---------+ + | Cancer | Paternal | | | | | Grandmoth | | | | | er | | | + + +---------+ + | Malig hypertherm | Neg Hx | | | + + +---------+ + + +---------+ + + | Relation | Name | Status | Comments | + +---------+ + + | Father | | | | + +---------+ + + | Maternal Grandmother | | | | + +---------+ + + | Mother | MADELON | | | + +---------+ + + | Mother | MADELON | | | + +---------+ + + | Mother | MADELON | | | + +---------+ + + | Paternal Grandfather | | | | + +---------+ + + | Paternal Grandmother | | | | + +---------+ + + Social History + +-------+ +--------+------+ [...] recent travel history available. | + + Last Filed Vital Signs + + + + | Vital Sign | Reading | Time Taken | + + + + | Blood Pressure | 122/60 | 01/03/20191246 PDT | + + + + | Pulse | 52 | 01/03/20191246 PDT | + + + + | Temperature | 36.3 C (97.4 F) | 05/31/20181553 PDT | + + + + | Respiratory Rate | 16 | 05/31/20181553 PDT | + + + + | Oxygen Saturation | 98% | 01/03/20191246 PDT | + + + + | Inhaled Oxygen | - | - | | Concentration | | | + + + + | Weight | 81.9 kg (180 lb 9.6 | 01/03/2019 1247 PDT | | | oz) | | + + + + | Height | 170.2 cm (5' 7") | 10/27/2018 1359 PDT | + + + + | Body Mass Index | 28.29 | 10/27/2018 1359 PDT | + + + + Plan of Treatment +--------+---------+ + + + | Date | Type | Specialty | Care Team | Description | +--------+---------+ + + + | 02/02/ | Office | Nephrology | Chantelle Aly | | | 2018 | Visit | | [address] | | | | | | [facility] | | | | | | [place] | | | | | | [address] | | | | | | [phone] | | | | | | | | +--------+---------+ + + + | 03/02/ | Office | Nephrology | Chantelle Aly | | | 2018 | Visit | | [address] | | | | | | [facility] [place] [place] | | | | | | [place] | | | | | | [address] | | | | | [phone] | | | | | | | | +--------+---------+ + + + | 04/06/ | Office | Nephrology | Chantelle Aly | | | 2019 | Visit | | [address] | | | | | | [facility] [place] | | | | | | [place] | | | | | | [address] | | | | | | [phone] | | | | | | | | +--------+---------+ + + + | 05/04/ | Office | Nephrology | Chantelle Aly | | | 2019 | Visit | | [address], [address] | | | | | | [facility] | | | | | | [place] | | | | | | [address] | | | | | | [phone] | | | | | | | | +--------+---------+ + + + | 06/12/ | Office | Nephrology | Chantelle Aly | | | 2019 | Visit | | [address] | | | | | | [facility] | | | | | | [place] | | | | | | [address] | | | | | | [phone] | | | | | | | | +--------+---------+ + + + | 07/03/ | Office | Nephrology | Chantelle Aly | | | 2019 | Visit | | [address], [address] | | | | | | [facility] | | | | | | [place] | | | | | | [address] | | | | | | [phone] | | | | | | | | +--------+---------+ + + + | 08/07/ | Office | Nephrology | Chantelle Aly | | | 2019 | Visit | | [address], [address] | | | | | | [facility] | | | | | | [place] | | | | | | [address] | | | | | | [phone] | | | | | | | | +--------+---------+ + + + | 09/11/ | Office | Nephrology | Chantelle Aly | | | 2019 | Visit | | [address], [address] | | | | | | [facility] | | | | | | [place] | | | | | | [address] | | | | | | [phone] | | | | | | | | +--------+---------+ + + + | 09/27/ | Office | Nephrology | Chantelle Aly | | | 2019 | Visit | | [address], [address] | | | | | | [facility] | | | | | | [place] | | | | | | [address] | | | | | | [phone] | | | | | | | | +--------+---------+ + + + | 11/06/ | Office | Nephrology | Chantelle Aly | | | 2019 | Visit | | [address], [address] | | | | | | [facility] | | | | | | [place] | | | | | | [address] | | | | | | [phone] | | | | | | | | +--------+---------+ + + + | 12/11/ | Office | Nephrology | Chantelle Aly | | | 2019 | Visit | | [address], [address] | | | | | | [facility] | | | | | | [place] | | | | | | [address] | | | | | | [phone] | | | | | | | | +--------+---------+ + + + | 01/03/ | Office | Nephrology | Chantelle Aly | | | 2019 | Visit | | [address], [address] | | | | | | [facility] | | | | | | [place] | | | | | | [address] | | | | | | [phone] | | | | | | | | +--------+---------+ + + + | 02/05/ | Office | Nephrology | Chantelle Aly | | | 2019 | Visit | | MD Denise [address] | | | | | | [place] | | | | | | [place] | | | | | | [address] | | | | | | [phone] | | | | | | | | +--------+---------+ + + + + + + + + | Health Maintenance | Due Date | Last Done | Comments | + + + + + | Diabetic Eye Exam | | | | | | 5 | | | + + + + + | Diabetic Foot Exam | | | | | | 5 | | | + + + + + | Breast Cancer | | 11/07/2008 | | | Screening | 2 | | | + + + + + | Cervical Cancer | | 02/23/2008 | | | Screening (Pap) | 3 | | | + + + + + | Hemoglobin A1c | | 05/17/2013 | | | Screening | 4 | | | + + + + + | Adult Annual | | | | | Wellness Visit | 5 | | | + + + + + | Vaccine: Zoster (1 | | | | | of 2) | 7 | | | + + + + + | Vaccine: Influenza | | 12/13/2016, 12/13/2016, | | | (#1) | 9 | 12/13/2014, Additional history | | | | | exists | | + + + + + | Vaccine: | | 09/20/2017, 12/13/2014, | | | Pneumococcal 19-64 | 9 | 12/04/2013 | | | Highest Risk (3 of 3 | | | | | - PPSV23) | | | | + + + + + | Colorectal Cancer | | 12/02/2009, 10/25/2009 | | | Screening | 0 | | | | (Colonoscopy) | | | | + + + + + | Vaccine: | | 12/16/2015, 03/05/2015, | | | Dtap/Tdap/Td (4 - | 6 | 06/29/2013 | | | Td) | | | | + + + + + Implants + +------+--------+ +--------+--------+--------+ | Implanted | Type | Area | Manufacture | Device | Shelf | Model | | | | | r | | Expira | / | | | | | | Identi | tion | Serial | | | | | | fier | Date | / Lot | + +------+--------+ +--------+--------+--------+ | David Bone Palacos-R 40gm - | | Right: | AHSAN - | | 04/14/ | [id number] | | [id number]: Qty: 1 on | | Foot | ZIMM | | 2020 | 2-140- | | 09/03/2015 by Mikey Burton | | | | | | 01 / | | T, DPM | | | | | | [id number] | | | | | | | | 473 | + +------+--------+ +--------+--------+--------+ | [employer]no Flexspan Flexible | | Right: | PRIEST | | 08/26/ | [id number] | | Hinge Toe With | | Toe | MEDICAL | | 2023 | 04 / | | GrommetsImplanted: Qty: 1 on | | | TECHNOLOGY | | | /[id number] | | 01/07/2016 by Mikey Burton, | | | INC- [id number] | | | 47 | | DPM | | | | | | | + +------+--------+ +--------+--------+--------+ Results Not on filefrom Last 3 Months Insurance + +--------+ +--------+ +---------+--------+ | Payer | Benefi | Subscriber | Effect | Phone | Address | Type | | | t Plan | ID | kat | | | | | | / | | Dates | | | | | | Group | | | | | | + +--------+ +--------+ +---------+--------+ | MEDICARE | MEDICA | [id number] | 11/14/19 | [phone] | | Medica | | | RE | | 00-Pre | 5 | | re | | | PART A | | sent | | | | | | AND B | | | | | | + +--------+ +--------+ +---------+--------+ | MEDICARE | MEDICA | [id number] | 09/12/18 | [phone] | | Medica | | | RE | | 94-Pre | 5 | | re | | | PART A | | sent | | | | | | AND B | | | | | | + +--------+ +--------+ +---------+--------+ | BCBS | BCBS | [id number] | 10/13/18 | | | PPO | | | OOS | 0 | 96-Pre | | | | | | PPO | | sent | | | | + +--------+ +--------+ +---------+--------+ | BCBS | BCBS | [id number] | 03/15/19 | | | Indemn | | | OOS | 0 | 19-Pre | | | ity | | | PAR | | sent | | | | + +--------+ +--------+ +---------+--------+ + +--------+ +--------+ + + | Guarantor Name | Accoun | Relation to | Date | Phone | Billing Address | | | t Type | Patient | of | | | | | | | | | | + +--------+ +--------+ + + | Marie Abdi | Person | Self | [birth year] | [address] | | [place] | al/Fam | | 1965 | | [place], [place] | | | [place] | | | 1 (Home) | [phone] | + +--------+ +--------+ + + | Marie Abdi | Person | Self [birth year] | | [address] | | [place] | al/Fam | | 1965 | | [place], [place] | | | [place] | | | 1 (Home) | [address] | + +--------+ +--------+ + + Advance Directives Patient has advance care planning documents, and code status on file. For more information, please contact:[facility] [place] [address] + + + + + | Code Status | Date | Date | Comments | | | Activated | Inactivated | | + + + + + | Full Code | 07/21/2017 | 07/25/2017 | | | | 18:42 | 16:04 | | + + + + + + + + +---+ | | | | | + + + +---+ | Full Code | 01/07/2016 | 01/07/2016 | | | | 14:31 | 18:11 | | + + + +---+ + + + +---+ | | | | | + + + +---+ | Full Code | 09/03/2015 | 09/03/2015 | | | | 16:36 | 19:44 | | + + + +---+ + + + +---+ | | | | | + + + +---+ | Full Code | 07/16/2015 | 07/19/2015 | | | | 23:34 | 20:27 | | + + + +---+ + + + +---+ | | | | | + + + +---+ | Full Code | 07/16/2015 | 07/16/2015 | | | | 23:32 | 23:34 | | + + + +---+
--- OUTSIDE RECORDS SUMMARY | ~2019-01-14 | XMS | Encounter Summary ---
Demographics + + + | Address | [address] | | | [place] [address] | + + + | Home Phone | | + + + | Preferred Language | Unknown | + + + | Marital Status | Single | + + + | Adventist Affiliation | Unknown | + + + | Race | Unknown | + + + | Ethnic Group | Other Race | + + + Author + + + | Author | [facility] | + + + | Organization | [facility] | + + + | Address | Unknown | + + + | Phone | Unavailable | + + + Care Team Providers + +------+ + | Care [employer] Cutter Name | Role | Phone | + +------+ + PCP | Unavailable | + +------+ + Encounter Details +--------+ + + + + | Date | Type | Department | Care Team | Description | +--------+ + + + + | 09/21/ | Lab | [facility] | | | | 2018 | Requisition | [facility] | | | | | | [address] | | | | | | [address] [place], | | | | | | [place] [address] | | | +--------+ + + + [...] FLOW HLA AB PRA | Routin | 09/13/2017 | | | | SCREEN I/II | e | 12:00 AM | | | | | | PDT | | | + +--------+ + + + documented in this encounter Results LIT FLOW HLA AB PRA SCREEN I/II (09/13/2017 12:00 AM PDT) + + | Specimen | + + | Blood - Blood | | (substance) | + + + + + + + | Performing | Address | City/State/Zipcode | Phone Number | | Organization | | | | + + + + + | [facility] - | [address] | [place] [address] | | | [facility]MM[facility]ANS | [address] | | | | [facility] | | | | + + + + + documented in this encounter Visit Diagnoses Not on filedocumented in this encounter"
--- OUTSIDE RECORDS SUMMARY | ~2019-01-14 | XMS | Encounter Summary ---
Demographics + + + | Address | [address] | | | [place] [address] | + + + | Home Phone | | + + + | Preferred Language | Unknown | + + + | Marital Status | Single | + + + | Jain Affiliation | Unknown | + + + [...] Team Providers + +------+ + | Care Bereavement Coordinator Name | Role | Phone | + +------+ + PCP | Unavailable | + +------+ + Encounter Details +--------+ + + + + | Date | Type | Department | Care Team | Description | +--------+ + + + + | 07/17/ | Lab | LAB IMMUNOGENETIC | | | | 2016 | Requisition | AND TRANSPLANT LAB | | | | | | [address] | | | | | | [address] [place], | | | | | | [place] [address] | | | +--------+ + + + [...] FLOW HLA AB PRA | Routin | 07/18/2015 | | | | SCREEN I/II | e | 1:48 PM | | | | | | PDT | | | + +--------+ + + + documented in this encounter Results LIT FLOW HLA AB PRA SCREEN I/II (07/18/2015 1:48 PM PDT) + + | Specimen | + + | Blood - Blood | | (substance) | + + + + + + + | Performing | Address | City/State/Zipcode | Phone Number | | Organization | | | | + + + + + | [facility] - | [address] | [place] [address] | | | IMMUNOGENETICS/TRANS | [address] | | | | [facility] | | | | + + + + + documented in this encounter Visit Diagnoses Not on filedocumented in this encounter"
--- OUTSIDE RECORDS SUMMARY | ~2019-01-14 | XMS | Encounter Summary ---
Demographics + + + | Address | [address] | | | [place] [address] | + + + | Home Phone [...] Author + + + | Author | [facility] | + + + | Organization | [facility] | + + + | Address | Unknown | + + + | Phone | Unavailable | + + + Care Team Providers + +------+ + | Care Claims Supervisor Name | Role | Phone | + +------+ + PCP | Unavailable | + +------+ + Encounter Details +--------+ + + + + | Date | Type | Department | Care Team | Description | +--------+ + + + + | 06/18/ | Lab | LAB IMMUNOGENETIC | | | | 2016 | Requisition | AND TRANSPLANT LAB | | | | | | [address] | | | | | | [address] [place], | | | | | | [place] [address] | | | +--------+ + + + [...] FLOW HLA AB PRA | Routin | 06/18/2016 | | | | SCREEN I/II | e | 3:00 PM | | | | | | PDT | | | + +--------+ + + + | LIT B-CELL XM, BLOOD | Routin | 06/18/2016 | | | | | e | 3:00 PM | | | | | | PDT | | | + +--------+ + + + | LIT FLOW XM, BLOOD | Routin | 06/18/2016 | | | | | e | 3:00 PM | | | | | | PDT | | | + +--------+ + + + | LIT T-CELL XM, BLOOD | Routin | 06/18/2016 | | | | | e | 3:00 PM | | | | | | PDT | | | + +--------+ + + + documented in this encounter Results LIT FLOW XM, BLOOD (06/18/2016 3:00 PM PDT) + + | Specimen | + + | Blood - Blood | | (substance) | + + + + + + + | Performing | Address | City/State/Zipcode | Phone Number | | Organization | | | | + + + + + | [facility] - | [address] | [place] [address] | | | IMMUNOGENETICS/TRANS | [address] | | | | [facility] | | | | + + + + + LIT B-CELL XM, BLOOD (06/18/2016 3:00 PM PDT) + + | Specimen | + + | Blood - Blood | | (substance) | + + + + + + + | Performing | Address | City/State/Zipcode | Phone Number | | Organization | | | | + + + + + | [facility] - | [address] | [place] [address] | | | IMMUNOGENETICS/TRANS | [address] | | | | [facility] | | | | + + + + + LIT T-CELL XM, BLOOD (06/18/2016 3:00 PM PDT) + + | Specimen | + + | Blood - Blood | | (substance) | + + + + + + + | Performing | Address | City/State/Zipcode | Phone Number | | Organization | | | | + + + + + | [facility] - | [address] | [place] [address] | | | IMMUNOGENETICS/TRANS | [address] | | | | [facility] | | | | + + + + + LIT FLOW HLA AB PRA SCREEN I/II (06/18/2016 3:00 PM PDT) + + | Specimen | + + | Blood - Blood | | (substance) | + + + + + + + | Performing | Address | City/State/Zipcode | Phone Number | | Organization | | | | + + + + + | [facility] - | [address] | [place] [address] | | | IMMUNOGENETICS/TRANS | [address] | | | | [facility] | | | | + + + + + documented in this encounter Visit Diagnoses Not on filedocumented in this encounter"
--- OUTSIDE RECORDS SUMMARY | ~2019-01-14 | XMS | Encounter Summary ---
Demographics + + + | Address | [address] | | | [place] [address] | + + + | Home Phone | | + + + | Preferred Language | Unknown | + + + | Marital Status | Single | + + + | Baptist Affiliation | Unknown | + + + | Race | Unknown | + + + | Ethnic Group | Other Race | + + + Author + + + | Author | [facility] | + + + | Organization | [facility] | + + + | Address | Unknown | + + + | Phone | Unavailable | + + + Care Team Providers + +------+ + | Care Town Clerk Name | Role | Phone | + +------+ + PCP | Unavailable | + +------+ + Encounter Details +--------+ + + + + | Date | Type | Department | Care Team | Description | +--------+ + + + + | 04/23/ | Lab | LAB IMMUNOGENETIC | | | | 2016 | Requisition | AND TRANSPLANT LAB | | | | | | [address] | | | | | | [address] [place], | | | | | | [place] [address] | | | +--------+ + + + [...] FLOW HLA AB PRA | Routin | 04/23/2016 | | | | SCREEN I/II | e | 1:34 PM | | | | | | PST | | | + +--------+ + + + documented in this encounter Results LIT FLOW HLA AB PRA SCREEN I/II (04/23/2016 1:34 PM PST) + + | Specimen | + + | Blood - Blood | | (substance) | + + + + + + + | Performing | Address | City/State/Zipcode | Phone Number | | Organization | | | | + + + + + | [facility] - | [address] | [place] [address] | | | IMMUNOGENETICS/TRANS | [address] | | | | [facility] | | | | + + + + + documented in this encounter Visit Diagnoses Not on filedocumented in this encounter"
--- OUTSIDE RECORDS SUMMARY | ~2019-01-14 | XMS | Encounter Summary ---
Demographics + + + | Address | [address] | | | [place] [address] | + + + | Home Phone | | + + + | Preferred Language | Unknown | + + + | Marital Status | Single | + + + | Pentecostal Affiliation | Unknown | + + + | Race | Unknown | + + + | Ethnic Group | Other Race | + + + Author + + + | Author | [facility] | + + + | Organization | [facility] | + + + | Address | Unknown | + + + | Phone | Unavailable | + + + Care Team Providers + +------+ + | Care Pastry Supervisor Name | Role | Phone | + +------+ + PCP | Unavailable | + +------+ + Encounter Details +--------+ + + + + | Date | Type | Department | Care Team | Description | +--------+ + + + + | 12/20/ | Lab | LAB IMMUNOGENETIC | | | | 2017 | Requisition | AND TRANSPLANT LAB | | | | | | [address] | | | | | | [address] [place], | | | | | | [place] [address] | | | +--------+ + + + [...] FLOW HLA AB PRA | Routin | 12/20/2017 | | | | SCREEN I/II | e | 10:17 AM | | | | | | PDT | | | + +--------+ + + + documented in this encounter Results LIT FLOW HLA AB PRA SCREEN I/II (12/20/2017 10:17 AM PDT) + + | Specimen | + + | Blood - Blood | | (substance) | + + + + + + + | Performing | Address | City/State/Zipcode | Phone Number | | Organization | | | | + + + + + | [facility] - | [address] | [place] [address] | | | IMMUNOGENETICS/TRANS | [address] | | | | [facility] | | | | + + + + + documented in this encounter Visit Diagnoses Not on filedocumented in this encounter"
--- OUTSIDE RECORDS SUMMARY | ~2019-01-14 | XMS | Encounter Summary ---
Demographics + + + | Address | [address] | | | [place] [address] | + + + | Home Phone [...] + + + | Author | [facility] | + + + | Organization | [facility] | + + + | Address | Unknown | + + + | Phone | Unavailable | + + + Care Team Providers + +------+ + | Care Concert Manager Name | Role | Phone | + +------+ + PCP | Unavailable | + +------+ + Encounter Details +--------+ + + + + | Date | Type | Department | Care Team | Description | +--------+ + + + + | 06/17/ | Lab | LAB IMMUNOGENETIC | | | | 2018 | Requisition | AND TRANSPLANT LAB | | | | | | [address] | | | | | | [address] [place], | | | | | | [place] [address] | | | +--------+ + + + [...] FLOW HLA AB PRA | Routin | 06/17/2017 | | | | SCREEN I/II | e | 2:04 PM | | | | | | PDT | | | + +--------+ + + + documented in this encounter Results LIT FLOW HLA AB PRA SCREEN I/II (06/17/2017 2:04 PM PDT) + + | Specimen | + + | Blood - Blood | | (substance) | + + + + + + + | Performing | Address | City/State/Zipcode | Phone Number | | Organization | | | | + + + + + | [facility] - | [address] | [place] [address] | | | IMMUNOGENETICS/TRANS | [address] | | | | [facility] | | | | + + + + + documented in this encounter Visit Diagnoses Not on filedocumented in this encounter"
--- OUTSIDE RECORDS SUMMARY | ~2019-01-14 | XMS | Encounter Summary ---
Demographics + + + | Address | [address] | | | [place] [address] | + + + | Home Phone | | + + + | Preferred Language | Unknown | + + + | Marital Status | Single | + + + | Voodoo Affiliation | Unknown | + + + | Race | Unknown | + + + | Ethnic Group | Other Race | + + + Author + + + | Author | [facility] | + + + | Organization | [facility] | + + + | Address | Unknown | + + + | Phone | Unavailable | + + + Care Team Providers + +------+ + | Care Ash Worker Name | Role | Phone | + +------+ + PCP | Unavailable | + +------+ + Encounter Details +--------+ + + + + | Date | Type | Department | Care Team | Description | +--------+ + + + + | 02/01/ | Hospital | Dermatopathology | | | | 2011 | Encounter | [address] | | | | | | Mailcode: [id number] | | | | | | [facility] | | | | | | and Healing, | | | | | | [address] | | | | | | Floor [place], [place] | | | | | | [address] | | | | | | [phone] | | | +--------+ + + + [...] | + +--------+ + + + | DERMATOPATHOLOGY(WET | Routin | 02/02/2012 | | Results for this | | [place]) | e | | | procedure are in the | | | | | | results section. | + +--------+ + + + documented in this encounter Results DERMATOPATHOLOGY(WET [place]) (02/02/2012) + + + + + + | Component | Value | Ref Range | Performed | Pathologist | | | | | At | Signature | + + + + + + | DERMATOPATH | SOURCE OF SPECIMEN:A Lt. | | [facility] | | | OLOGY(WET | scapula, shave | | DERMATOPATH | | | MNT) | biopsySOURCE OF | | OLOGY | | | | SPECIMEN:B Rt. inferior | | | | | | scapula, shave biopsy | | | | | | CLINICAL | | | | | | DESCRIPTION:A: 6x5 mm | | | | | | gonzalez and dark brown | | | | | | papule; r/o atypical | | | | | | nevus.B: 4x2.5 mm dark | | | | | | brown asymmetrical | | | | | | macule; r/o atypical | | | | | | nevus. GROSS | | | | | | DESCRIPTION:Received in | | | | | | formalin are two | | | | | | specimens labeled | | | | | | Marie Abdi:A: | | | | | | Specimen is labeled "A: | | | | | | L scapula" and consists | | | | | | of an irregular shave | | | | | | ofwhite-brown skin, | | | | | | [id number]. The surgical | | | | | | margin is inked green; | | | | | | the tissueis trisected, | | | | | | and entirely submitted | | | | | | in cassette A1.B: | | | | | | Specimen is labeled "B: | | | | | | R inf scapula" and | | | | | | consists of an | | | | | | irregularshave of | | | | | | white-brown skin, | | | | | | [id number]. The surgical | | | | | | margin is inked green; | | | | | | thetissue is trisected, | | | | | | and entirely submitted | | | | | | in cassette B1. | | | | | | MICROSCOPIC | | | | | | DESCRIPTION:In the A | | | | | | specimen there is a | | | | | | mostly well | | | | | | circumscribed compound | | | | | | melanocyticneoplasm | | | | | | characterized by round | | | | | | to oval nests and single | | | | | | melanocytes alongthe | | | | | | basal layer, with nests | | | | | | and cords present in the | | | | | | papillary dermis. | | | | | | Mostof the melanocytic | | | | | | nuclei are round to oval | | | | | | and the cells | | | | | | containamphophilic | | | | | | cytoplasm. In the | | | | | | B specimen there is a | | | | | | mostly well | | | | | | circumscribed compound | | | | | | melanocyticneoplasm | | | | | | characterized by round | | | | | | to oval nests and single | | | | | | melanocytes alongthe | | | | | | basal layer, with nests | | | | | | and cords present in the | | | | | | papillary dermis. | | | | | | Mostof the melanocytic | | | | | | nuclei are round to oval | | | | | | and the cells | | | | | | containamphophilic | | | | | | cytoplasm. | | | | | | DIAGNOSIS:A: MELANOCYTIC | | | | | | NEVUS, COMPOUND TYPE. | | | | | | NOTE: The left | | | | | | scapula MELANOCYTIC | | | | | | NEVUS extends to the | | | | | | deep surgicalmargin of | | | | | | the shave specimen. | | | | | | B: MELANOCYTIC NEVUS, | | | | | | COMPOUND TYPE. | | | | | | NOTE: The right inferior | | | | | | scapula MELANOCYTIC | | | | | | NEVUS extends to the | | | | | | deepsurgical margin of | | | | | | the shave specimen. | | | | | | VBK:emr02/08/12 | | | | | | My electronic signature | | | | | | indicates that I have | | | | | | personally reviewed | | | | | | alldiagnostic slides, | | | | | | the gross and/or | | | | | | microscopic portion of | | | | | | thisreport and | | | | | | formulated the final | | | | | | diagnosis. | | | | | | Rendering Diagnostician: | | | | | | Ashlee Ramírez | | | | | | M.Peri.PathologistElectroni | | | | | | parker Signed 02/08/2012 | | | | | | 4:34PM | | | | + + + + + + + + | Specimen | + + | | + + + + + + + | Performing | Address | City/State/Zipcode | Phone Number | | Organization | | | | + + + + + | [facility] | [address] | [place] [address] | | | DERMATOPATHOLOGY | [address] | | | + + + + + documented in this encounter Visit Diagnoses Not on filedocumented in this encounter
--- OUTSIDE RECORDS SUMMARY | ~2019-01-14 | XMS | Encounter Summary ---
Demographics + + + | Address | [address] | | | [place] [address] | + + + | Home Phone | | + + + | Preferred Language | Unknown | + + + | Marital Status | Single | + + + | Sabianist Affiliation | Unknown | + + + | Race | Unknown | + + + | Ethnic Group | Other Race | + + + Author + + + | Author | [facility] | + + + | Organization | [facility] | + + + | Address | Unknown | + + + | Phone | Unavailable | + + + Care Team Providers + +------+ + | Care Truck Body Builder Name | Role | Phone | + [...] | | | | | [address] [place], | | | | | | [place] [address] | | | +--------+ + + + [...] | [facility] - | [address] | [place] [address] | | | IMMUNOGENETICS/TRANS | [address] | | | | [facility] | | | | + + + + + documented in this encounter Visit Diagnoses Not on filedocumented in this encounter"
--- OUTSIDE RECORDS SUMMARY | ~2019-01-14 | XMS | Encounter Summary ---
Demographics + + + | Address | [address] | | | [place] [address] | + + + | Home Phone | | + + + | Preferred Language | Unknown | + + + | Marital Status | Single | + + + | Mu-Ism Affiliation | Unknown | + + + | Race | Unknown | + + + | Ethnic Group | Other Race | + + + Author + + + | Author | [facility] | + + + | Organization | [facility] | + + + | Address | Unknown | + + + | Phone | Unavailable | + + + Care Team Providers + +------+ + | Care Agriculture Science Teacher Name | Role | Phone | + +------+ + PCP | Unavailable | + +------+ + Encounter Details +--------+ + + + + | Date | Type | Department | Care Team | Description | +--------+ + + + + | 04/28/ | Lab | LAB IMMUNOGENETIC | | | | 2018 | Requisition | AND TRANSPLANT LAB | | | | | | [address] | | | | | | [address] [place], | | | | | | [place] [address] | | | +--------+ + + + [...] FLOW HLA AB PRA | Routin | 04/28/2017 | | | | SCREEN I/II | e | 2:27 PM | | | | | | PST | | | + +--------+ + + + documented in this encounter Results LIT FLOW HLA AB PRA SCREEN I/II (04/28/2017 2:27 PM PST) + + | Specimen | + + | Blood - Blood | | (substance) | + + + + + + + | Performing | Address | City/State/Zipcode | Phone Number | | Organization | | | | + + + + + | [facility] - | [address] | [place] [address] | | | IMMUNOGENETICS/TRANS | [address] | | | | [facility] | | | | + + + + + documented in this encounter Visit Diagnoses Not on filedocumented in this encounter"
--- OUTSIDE RECORDS SUMMARY | ~2019-01-14 | XMS | Encounter Summary ---
Demographics + + + | Address | [address] | | | [place] [address] | + + + | Home Phone | | + + + | Preferred Language | Unknown | + + + | Marital Status | Single | + + + | Pentecostalism Affiliation | Unknown | + + + | Race | Unknown | + + + | Ethnic Group | Other Race | + + + Author + + + | Author | [facility] | + + + | Organization | [facility] | + + + | Address | Unknown | + + + | Phone | Unavailable | + + + Care Team Providers + +------+ + | Care Licensed Embalmer Name | Role | Phone | + +------+ + PCP | Unavailable | + +------+ + Encounter Details +--------+ + + + + | Date | Type | Department | Care Team | Description | +--------+ + + + + | 11/24/ | Lab | LAB IMMUNOGENETIC | | | | 2019 | Requisition | AND TRANSPLANT LAB | | | | | | [address] | | | | | | [address] [place], | | | | | | [place] [address] | | | +--------+ + + + [...] | + +--------+ + + + | CLASS I & II ID | Routin | 11/16/2018 | | Results for this | | | e | 12:00 AM | | procedure are in the | | | | PDT | | results section. | + +--------+ + + + | LIT FLOW HLA II AB | Routin | 11/16/2018 | | | | AG ID, BLOOD | e | 12:00 AM | | | | | | PDT | | | + +--------+ + + + | LIT FLOW HLA I AB AG | Routin | 11/16/2018 | | Results for this | | ID, BLOOD | e | 12:00 AM | | procedure are in the | | | | PDT | | results section. | + +--------+ + + + documented in this encounter Results LIT FLOW HLA II AB AG ID, BLOOD (11/16/2018 12:00 AM PDT) + + | Specimen | + + | Blood - Blood | | (substance) | + + + + + + + | Performing | Address | City/State/Zipcode | Phone Number | | Organization | | | | + + + + + | [facility] - | [address] | [place] [address] | | | IMMUNOGENETICS/TRANS | [address] | | | | [facility] | | | | + + + + + LIT FLOW HLA I AB AG ID, BLOOD (11/16/2018 12:00 AM PDT) + + + + + [...] + + | [facility] - | [address] | [place] [address] | | | IMMUNOGENETICS/TRANS | [address] | | | | [facility] | | | | + + + + + documented in this encounter Visit Diagnoses Not on filedocumented in this encounter"
--- OUTSIDE RECORDS SUMMARY | ~2019-01-14 | XMS | Encounter Summary ---
Demographics + + + | Address | [address] | | | [place] [address] | + + + | Home Phone | | + + + | Preferred Language | Unknown | + + + | Marital Status | Single | + + + | Quaker Affiliation | Unknown | + + + | Race | Unknown | + + + | Ethnic Group | Other Race | + + + Author + + + | Author | [facility] | + + + | Organization | [facility] | + + + | Address | Unknown | + + + | Phone | Unavailable | + + + Care Team Providers + +------+ + | Care Preparer Samples And Repairs Name | Role | Phone | + [...] | | | | | [address] [place], | | | | | | [place] [address] | | | +--------+ + + + [...] + + | [facility] - | [address] | [place] [address] | | | IMMUNOGENETICS/TRANS | [address] [...] [facility] - | [address] | [place] [address] | | | IMMUNOGENETICS/TRANS | [address] [...] + + | [facility] - | [address] | [place] [address] | | | IMMUNOGENETICS/TRANS | [address] [...] + + | [facility] - | [address] | [place] [address] | | | IMMUNOGENETICS/TRANS | [address] | | | | [facility] LAB[facility]ORY | | | | + + + + + documented in this encounter Visit Diagnoses Not on filedocumented in this encounter"
--- OUTSIDE RECORDS SUMMARY | ~2019-01-14 | XMS | Encounter Summary ---
Demographics + + + | Address | [address] | | | [place] [address] | + + + | Home Phone | | + + + | Preferred Language | Unknown | + + + | Marital Status | Single | + + + | Adventism Affiliation | Unknown | + + + [...] Team Providers + +------+ + | Care Chinchilla Farmer Name | Role | Phone | + [...] | | | | | [address] [place], | | | | | | [place] [address] | | | +--------+ + + + [...] | [facility] - | [address] | [place] [address] | | | IMMUNOGENETICS/TRANS | [address] | | | | [facility] | | | | + + + + + documented in this encounter Visit Diagnoses Not on filedocumented in this encounter"
--- OUTSIDE RECORDS SUMMARY | ~2019-01-14 | XMS | Encounter Summary ---
Demographics + + + | Address | [address] | | | [place] [address] | + + + | Home Phone [...] + + + | Author | [facility] | + + + | Organization | [facility] | + + + | Address | Unknown | + + + | Phone | Unavailable | + + + Care Team Providers + +------+ + | Care Program Checker Name | Role | Phone | + +------+ + PCP | Unavailable | + +------+ + Encounter Details +--------+ + + + + | Date | Type | Department | Care Team | Description | +--------+ + + + + | 09/23/ | Lab | LAB IMMUNOGENETIC | | | | 2015 | Requisition | AND TRANSPLANT LAB | | | | | | [address] | | | | | | [address] [place], | | | | | | [place] [address] | | | +--------+ + + + [...] FLOW HLA AB PRA | Routin | 09/24/2015 | | | | SCREEN I/II | e | 1:00 PM | | | | | | PDT | | | + +--------+ + + + documented in this encounter Results LIT FLOW HLA AB PRA SCREEN I/II (09/24/2015 1:00 PM PDT) + + | Specimen | + + | Blood - Blood | | (substance) | + + + + + + + | Performing | Address | City/State/Zipcode | Phone Number | | Organization | | | | + + + + + | [facility] - | [address] | [place] [address] | | | IMMUNOGENETICS/TRANS | [address] | | | | [facility] | | | | + + + + + documented in this encounter Visit Diagnoses Not on filedocumented in this encounter"
--- OUTSIDE RECORDS SUMMARY | ~2019-01-14 | XMS | Encounter Summary ---
Demographics + + + | Address | [address] | | | [place] [address] | + + + | Home Phone | | + + + | Preferred Language | Unknown | + + + | Marital Status | Single | + + + | Orthodox Affiliation | Unknown | + + + | Race | Unknown | + + + | Ethnic Group | Other Race | + + + Author + + + | Author | [facility] | + + + | Organization | [facility] | + + + | Address | Unknown | + + + | Phone | Unavailable | + + + Care Team Providers + +------+ + | Care Excellence Coach Name | Role | Phone | + +------+ + PCP | Unavailable | + +------+ + Encounter Details +--------+ + + + + | Date | Type | Department | Care Team | Description | +--------+ + + + + | 11/05/ | Lab | LAB IMMUNOGENETIC | | | | 2014 | Requisition | AND TRANSPLANT LAB | | | | | | [address] | | | | | | [address] [place], | | | | | | [place] [address] | | | +--------+ + + + [...] FLOW HLA II AB | Routin | 11/05/2014 | | | | AG ID, BLOOD | e | 1:16 PM | | | | | | PDT | | | + +--------+ + + + | LIT FLOW HLA I AB AG | Routin | 11/05/2014 | | Results for this | | ID, BLOOD | e | 1:16 PM | | procedure are in the | | | | PDT | | results section. | + +--------+ + + + documented in this encounter Results LIT FLOW HLA II AB AG ID, BLOOD (11/05/2014 1:16 PM PDT) + + | Specimen | + + | Blood - Blood | + + + + + + + | Performing | Address | City/State/Zipcode | Phone Number | | Organization | | | | + + + + + | [facility] - | [address] | [place], [place] [address] | | | IMMUNOGENETICS/TRANS | [address] | | | | [facility] | | | | + + + + + LIT FLOW HLA I AB AG ID, BLOOD (11/05/2014 1:16 PM PDT) + + + + + [...] + + | Blood - Blood | + + + + + + + | Performing | Address | City/State/Zipcode | Phone Number | | Organization | | | | + + + + + | [facility] - | [address] | [place] [address] | | | IMMUNOGENETICS/TRANS | [address] | | | | [facility] | | | | + + + + + documented in this encounter Visit Diagnoses Not on filedocumented in this encounter"
--- OUTSIDE RECORDS SUMMARY | ~2019-01-14 | XMS | Encounter Summary ---
Demographics + + + | Address | [address] | | | [place] [address] | + + + | Home Phone | | + + + | Preferred Language | Unknown | + + + | Marital Status | Single | + + + | Rastafari Affiliation | Unknown | + + + [...] Team Providers + +------+ + | Care Shoe Planner Name | Role | Phone | + +------+ + PCP | Unavailable | + +------+ + Encounter Details +--------+ + + + + | Date | Type | Department | Care Team | Description | +--------+ + + + + | 05/22/ | Lab | LAB [facility]UN[facility]ET[facility] | | | | 2015 | Requisition | [facility] | | | | | | [address] | | | | | | [address] [place], | | | | | | [place] [address] | | | +--------+ + + + [...] FLOW HLA AB PRA | Routin | 05/23/2015 | | | | SCREEN I/II | e | 10:25 AM | | | | | | PST | | | + +--------+ + + + documented in this encounter Results LIT FLOW HLA AB PRA SCREEN I/II (05/23/2015 10:25 AM PST) + + | Specimen | + + | Blood - Blood | | (substance) | + + + + + + + | Performing | Address | City/State/Zipcode | Phone Number | | Organization | | | | + + + + + | [facility] - | [address] | [place] [address] | | | IMMUNOGENETICS/TRANS | [address] | | | | [facility] | | | | + + + + + documented in this encounter Visit Diagnoses Not on filedocumented in this encounter"
--- OUTSIDE RECORDS SUMMARY | ~2019-01-14 | XMS | Encounter Summary ---
Demographics + + + | Address | [address] | | | [place] [address] | + + + | Home Phone [...] Author + + + | Author | [facility] | + + + | Organization | [facility] | + + + | Address | Unknown | + + + | Phone | Unavailable | + + + Care Team Providers + +------+ + | Care Infertility Nurse Name | Role | Phone | + +------+ + PCP | Unavailable | + +------+ + Encounter Details +--------+ + + + + | Date | Type | Department | Care Team | Description | +--------+ + + + + | 12/17/ | Lab | LAB IMMUNOGENETIC | | | | 2016 | Requisition | AND [facility] LAB | | | | | | [address] | | | | | | [address] [place], | | | | | | [place] [address] | | | +--------+ + + + [...] FLOW HLA AB PRA | Routin | 12/17/2016 | | | | SCREEN I/II | e | 1:43 PM | | | | | | PDT | | | + +--------+ + + + documented in this encounter Results LIT FLOW HLA AB PRA SCREEN I/II (12/17/2016 1:43 PM PDT) + + | Specimen | + + | Blood - Blood | | (substance) | + + + + + + + | Performing | Address | City/State/Zipcode | Phone Number | | Organization | | | | + + + + + | [facility] - | [address] | [place] [address] | | | IMMUNOGENETICS/TRANS | [address] | | | | [facility] | | | | + + + + + documented in this encounter Visit Diagnoses Not on filedocumented in this encounter"
--- OUTSIDE RECORDS SUMMARY | ~2019-01-14 | XMS | Encounter Summary ---
Demographics + + + | Address | [address] | | | [place] [address] | + + + | Home Phone | | + + + | Preferred Language | Unknown | + + + | Marital Status | Single | + + + | Faith Affiliation | Unknown | + + + | Race | Unknown | + + + | Ethnic Group | Other Race | + + + Author + + + | Author | [facility] | + + + | Organization | [facility] | + + + | Address | Unknown | + + + | Phone | Unavailable | + + + Care Team Providers + +------+ + | Care Network Systems Engineer Name | Role | Phone | + +------+ + PCP | Unavailable | + +------+ + Encounter Details +--------+ + + + + | Date | Type | Department | Care Team | Description | +--------+ + + + + | 12/21/ | Lab | LAB IMMUNOGENETIC | | | | 2019 | Requisition | AND [facility]PL[facility] LAB | | | | | | [address] | | | | | | [address] [place], | | | | | | [place] [address] | | | +--------+ + + + [...] FLOW HLA AB PRA | Routin | 12/14/2018 | | | | SCREEN I/II | e | 12:00 AM | | | | | | PDT | | | + +--------+ + + + documented in this encounter Results LIT FLOW HLA AB PRA SCREEN I/II (12/14/2018 12:00 AM PDT) + + | Specimen | + + | Blood - Blood | | (substance) | + + + + + + + | Performing | Address | City/State/Zipcode | Phone Number | | Organization | | | | + + + + + | [facility] - | [address] | [place] [address] | | | IMMUNOGENETICS/TRANS | [address] | | | | [facility] | | | | + + + + + documented in this encounter Visit Diagnoses Not on filedocumented in this encounter"
--- OUTSIDE RECORDS SUMMARY | ~2019-01-14 | XMS | Encounter Summary ---
Demographics + + + | Address | [address] | | | [place] [address] | + + + | Home Phone [...] Author + + + | Author | [facility] | + + + | Organization | [facility] | + + + | Address | Unknown | + + + | Phone | Unavailable | + + + Care Team Providers + +------+ + | Care Disaster Recovery Specialist Name | Role | Phone | + +------+ + PCP | Unavailable | + +------+ + Encounter Details +--------+ + + + + | Date | Type | Department | Care Team | Description | +--------+ + + + + | 01/21/ | Lab | LAB IMMUNOGENETIC | | | | 2015 | Requisition | AND TRANSPLANT LAB | | | | | | [address] | | | | | | [address] [place], | | | | | | [place] [address] | | | +--------+ + + + [...] FLOW HLA AB PRA | Routin | 01/15/2016 | | | | SCREEN I/II | e | 12:00 AM | | | | | | PDT | | | + +--------+ + + + documented in this encounter Results LIT FLOW HLA AB PRA SCREEN I/II (01/15/2016 12:00 AM PDT) + + | Specimen | + + | Blood - Blood | | (substance) | + + + + + + + | Performing | Address | City/State/Zipcode | Phone Number | | Organization | | | | + + + + + | [facility] - | [address] | [place] [address] | | | IMMUNOGENETICS/TRANS | [address] | | | | [facility] | | | | + + + + + documented in this encounter Visit Diagnoses Not on filedocumented in this encounter"
--- OUTSIDE RECORDS SUMMARY | ~2019-01-14 | XMS | Encounter Summary ---
Demographics + + + | Address | [address] | | | [place] [address] | + + + | Home Phone | | + + + | Preferred Language | Unknown | + + + | Marital Status | Single | + + + | Presybeterian Affiliation | Unknown | + + + [...] Team Providers + +------+ + | Care Documentation Coordinator Name | Role | Phone | + +------+ + PCP | Unavailable | + +------+ + Encounter Details +--------+ + + + + | Date | Type | Department | Care Team | Description | +--------+ + + + + | 03/22/ | Lab | LAB IMMUNOGENETIC | | | | 2018 | Requisition | AND TRANSPL[facility] LAB | | | | | | [address] | | | | | | [address] [place], | | | | | | [place] [address] | | | +--------+ + + + [...] FLOW HLA AB PRA | Routin | 03/22/2017 | | | | SCREEN I/II | e | 3:09 PM | | | | | | PST | | | + +--------+ + + + documented in this encounter Results LIT FLOW HLA AB PRA SCREEN I/II (03/22/2017 3:09 PM PST) + + | Specimen | + + | Blood - Blood | | (substance) | + + + + + + + | Performing | Address | City/State/Zipcode | Phone Number | | Organization | | | | + + + + + | [facility] - | [address] | [place] [address] | | | IMMUNOGENETICS/TRANS | [address] | | | | [facility] | | | | + + + + + documented in this encounter Visit Diagnoses Not on filedocumented in this encounter"
--- OUTSIDE RECORDS SUMMARY | ~2019-01-14 | XMS | Encounter Summary ---
Demographics + + + | Address | [address] | | | [place] [address] | + + + | Home Phone | | + + + | Preferred Language | Unknown | + + + | Marital Status | Single | + + + | Yarsani Affiliation | Unknown | + + + | Race | Unknown | + + + | Ethnic Group | Other Race | + + + Author + + + | Author | [facility] | + + + | Organization | [facility] | + + + | Address | Unknown | + + + | Phone | Unavailable | + + + Care Team Providers + +------+ + | Care Hosted Services Analyst Name | Role | Phone | + [...] | | | | | [address] [place], | | | | | | [place] [address] | | | +--------+ + + + [...] | [facility] - | [address] | [place] [address] | | | IMMUNOGENETICS/TRANS | [address] | | | | [facility] | | | | + + + + + documented in this encounter Visit Diagnoses Not on filedocumented in this encounter"
--- OUTSIDE RECORDS SUMMARY | ~2019-01-14 | XMS | Encounter Summary ---
Demographics + + + | Address | [address] | | | [place] [address] | + + + | Home Phone [...] Author | [facility] | + + + | Organization | [facility] | + + + | Address | Unknown | + + + | Phone | Unavailable | + + + Care Team Providers + +------+ + | Care Bulk Sealer Operator Name | Role | Phone | + +------+ + PCP | Unavailable | + +------+ + Encounter Details +--------+ + + + + | Date | Type | Department | Care Team | Description | +--------+ + + + + | 04/22/ | Lab | LAB IMMUNOGENETIC | | | | 2015 | Requisition | AND [facility]PL[facility] LAB | | | | | | [address] | | | | | | [address] [place], | | | | | | [place] [address] | | | +--------+ + + + [...] FLOW HLA AB PRA | Routin | 04/22/2015 | | | | SCREEN I/II | e | 3:20 PM | | | | | | PST | | | + +--------+ + + + documented in this encounter Results LIT FLOW HLA AB PRA SCREEN I/II (04/22/2015 3:20 PM PST) + + | Specimen | + + | Blood - Blood | | (substance) | + + + + + + + | Performing | Address | City/State/Zipcode | Phone Number | | Organization | | | | + + + + + | [facility] - | [address] | [place] [address] | | | IMMUNOGENETICS/TRANS | [address] | | | | [facility] | | | | + + + + + documented in this encounter Visit Diagnoses Not on filedocumented in this encounter"
--- OUTSIDE RECORDS SUMMARY | ~2019-01-14 | XMS | Encounter Summary ---
Demographics + + + | Address | [address] | | | [place] [address] | + + + | Home Phone | | + + + | Preferred Language | Unknown | + + + | Marital Status | Single | + + + | Druze Affiliation | Unknown | + + + | Race | Unknown | + + + | Ethnic Group | Other Race | + + + Author + + + | Author | [facility] | + + + | Organization | [facility] | + + + | Address | Unknown | + + + | Phone | Unavailable | + + + Care Team Providers + +------+ + | Care Barrel Bridge Assembler Name | Role | Phone | + [...] | | | | | [address] [place], | | | | | | [place] [address] | | | +--------+ + + + [...] | [facility] - | [address] | [place] [address] | | | IMMUNOGENETICS/TRANS | [address] | | | | [facility] | | | | + + + + + documented in this encounter Visit Diagnoses Not on filedocumented in this encounter"
--- OUTSIDE RECORDS SUMMARY | ~2019-01-14 | XMS | Encounter Summary ---
Demographics + + + | Address | [address] | | | [place] [address] | + + + | Home Phone | | + + + | Preferred Language | Unknown | + + + | Marital Status | Single | + + + | Muslim Affiliation | Unknown | + + + | Race | Unknown | + + + | Ethnic Group | Other Race | + + + Author + + + | Author | [facility] | + + + | Organization | [facility] | + + + | Address | Unknown | + + + | Phone | Unavailable | + + + Care Team Providers + +------+ + | Care Biztalk Administrator Name | Role | Phone | + +------+ + PCP | Unavailable | + +------+ + Encounter Details +--------+ + + + + | Date | Type | Department | Care Team | Description | +--------+ + + + + | 01/20/ | Lab | LAB IMMUNOGENETIC | | | | 2018 | Requisition | AND TRANSPLANT LAB | | | | | | [address] | | | | | | [address] [place], | | | | | | [place] [address] | | | +--------+ + + + [...] FLOW HLA AB PRA | Routin | 01/14/2018 | | | | SCREEN I/II | e | 12:00 AM | | | | | | PDT | | | + +--------+ + + + documented in this encounter Results LIT FLOW HLA AB PRA SCREEN I/II (01/14/2018 12:00 AM PDT) + + | Specimen | + + | Blood - Blood | | (substance) | + + + + + + + | Performing | Address | City/State/Zipcode | Phone Number | | Organization | | | | + + + + + | [facility] - | [address] | [place] [address] | | | IMMUNOGENETICS/TRANS | [address] | | | | [facility] | | | | + + + + + documented in this encounter Visit Diagnoses Not on filedocumented in this encounter"
--- OUTSIDE RECORDS SUMMARY | ~2019-01-14 | XMS | Encounter Summary ---
Demographics + + + | Address | [address] | | | [place] [address] | + + + | Home Phone | | + + + | Preferred Language | Unknown | + + + | Marital Status | Single | + + + | Sabianism Affiliation | Unknown | + + + | Race | Unknown | + + + | Ethnic Group | Other Race | + + + Author + + + | Author | [facility] | + + + | Organization | [facility] | + + + | Address | Unknown | + + + | Phone | Unavailable | + + + Care Team Providers + +------+ + | Care Clam Bed Worker Name | Role | Phone | + +------+ + PCP | Unavailable | + +------+ + Encounter Details +--------+ + + + + | Date | Type | Department | Care Team | Description | +--------+ + + + + | 02/22/ | Lab | LAB IMMUNOGENETIC | | | | 2018 | Requisition | AND TRANSPLANT LAB | | | | | | [address] | | | | | | [address] [place], | | | | | | [place] [address] | | | +--------+ + + + [...] FLOW HLA AB PRA | Routin | 02/14/2018 | | | | SCREEN I/II | e | 12:00 AM | | | | | | PST | | | + +--------+ + + + documented in this encounter Results LIT FLOW HLA AB PRA SCREEN I/II (02/14/2018 12:00 AM PST) + + | Specimen | + + | Blood - Blood | | (substance) | + + + + + + + | Performing | Address | City/State/Zipcode | Phone Number | | Organization | | | | + + + + + | [facility] - | [address] | [place] [address] | | | IMMUNOGENETICS/TRANS | [address] | | | | [facility] | | | | + + + + + documented in this encounter Visit Diagnoses Not on filedocumented in this encounter"
--- OUTSIDE RECORDS SUMMARY | ~2019-01-14 | XMS | Encounter Summary ---
Demographics + + + | Address | [address] | | | [place] [address] | + + + | Home Phone | | + + + | Preferred Language | Unknown | + + + | Marital Status | Single | + + + | Yazidi Affiliation | Unknown | + + + [...] Team Providers + +------+ + | Care Assembler Wet Wash Name | Role | Phone | + [...] | | | | | [address] [place], | | | | | | [place] [address] | | | +--------+ + + + [...] | [facility] - | [address] | [place] [address] | | | IMMUNOGENETICS/TRANS | [address] | | | | [facility] | | | | + + + + + documented in this encounter Visit Diagnoses Not on filedocumented in this encounter"
--- OUTSIDE RECORDS SUMMARY | ~2019-01-14 | XMS | Encounter Summary ---
Demographics + + + | Address | [address] | | | [place] [address] | + + + | Home Phone [...] Team Providers + +------+ + | Care Sales Promotion Director Name | Role | Phone | + +------+ + PCP | Unavailable | + +------+ + Encounter Details +--------+ + + + + | Date | Type | Department | Care Team | Description | +--------+ + + + + | 10/19/ | Lab | LAB IMMUNOGENETIC | | | | 2018 | Requisition | AND TRANSPLANT LAB | | | | | | [address] | | | | | | [address] [place], | | | | | | [place] [address] | | | +--------+ + + + [...] | + +--------+ + + + | HLA FLOW PRA WITH | Routin | 10/13/2017 | | Results for this | | YEARLY ID | e | 12:00 AM | | procedure are in the | | | | PDT | | results section. | + +--------+ + + + | LIT FLOW HLA AB PRA | Routin | 10/13/2017 | | | | SCREEN I/II | e | 12:00 AM | | | | | | PDT | | | + +--------+ + + + | LIT FLOW HLA II AB | Routin | 10/13/2017 | | | | AG ID, BLOOD | e | 12:00 AM | | | | | | PDT | | | + +--------+ + + + | LIT FLOW HLA I AB AG | Routin | 10/13/2017 | | Results for this | | ID, BLOOD | e | 12:00 AM | | procedure are in the | | | | PDT | | results section. | + +--------+ + + + documented in this encounter Results LIT FLOW HLA II AB AG ID, BLOOD (10/13/2017 12:00 AM PDT) + + | Specimen | + + | Blood - Blood | | (substance) | + + + + + + + | Performing | Address | City/State/Zipcode | Phone Number | | Organization | | | | + + + + + | [facility] - | [address], | [place] [address] | | | IMMUNOGENETICS/TRANS | [address] | | | | [facility] | | | | + + + + + LIT FLOW HLA I AB AG ID, BLOOD (10/13/2017 12:00 AM PDT) + + + + [...] + + | [facility] - | [address] | [place] [address] | | | IMMUNOGENETICS/TRANS | [address] | | | | [facility] | | | | + + + + + LIT FLOW HLA AB PRA SCREEN I/II (10/13/2017 12:00 AM PDT) + + | Specimen | + + | Blood - Blood | | (substance) | + + + + + + + | Performing | Address | City/State/Zipcode | Phone Number | | Organization | | | | + + + + + | [facility] - | [address] | [place] [address] | | | IMMUNOGENETICS/TRANS | [address] | | | | [facility] | | | | + + + + + documented in this encounter Visit Diagnoses Not on filedocumented in this encounter"
--- OUTSIDE RECORDS SUMMARY | ~2019-01-14 | XMS | Encounter Summary ---
Demographics + + + | Address | [address] | | | [place] [address] | + + + | Home Phone [...] Author + + + | Author | [facility] | + + + | Organization | [facility] | + + + | Address | Unknown | + + + | Phone | Unavailable | + + + Care Team Providers + +------+ + | Care Photonics Engineering Technologist Name | Role | Phone | + +------+ + PCP | Unavailable | + +------+ + Encounter Details +--------+ + + + + | Date | Type | Department | Care Team | Description | +--------+ + + + + | 10/18/ | Lab | LAB IMMUNOGENETIC | | | | 2019 | Requisition | AND TRANSPLANT LAB | | | | | | [address] | | | | | | [address] [place], | | | | | | [place] [address] | | | +--------+ + + + [...] HLA FLOW PRA WITH | Routin | 10/14/2018 | | Results for this | | YEARLY ID | e | 12:00 AM | | procedure are in the | | | | PDT | | results section. | + +--------+ + + + | LIT FLOW HLA AB PRA | Routin | 10/14/2018 | | | | SCREEN I/II | e | 12:00 AM | | | | | | PDT | | | + +--------+ + + + | LIT FLOW HLA II AB | Routin | 10/14/2018 | | | | AG ID, BLOOD | e | 12:00 AM | | | | | | PDT | | | + +--------+ + + + | LIT FLOW HLA I AB AG | Routin | 10/14/2018 | | Results for this | | ID, BLOOD | e | 12:00 AM | | procedure are in the | | | | PDT | | results section. | + +--------+ + + + documented in this encounter Results LIT FLOW HLA II AB AG ID, BLOOD (10/14/2018 12:00 AM PDT) + + | Specimen | + + | Blood - Blood | | (substance) | + + + + + + + | Performing | Address | City/State/Zipcode | Phone Number | | Organization | | | | + + + + + | [facility] - | [address] | [place] [address] | | | IMMUNOGENETICS/TRANS | [address] | | | | [facility] | | | | + + + + + LIT FLOW HLA I AB AG ID, BLOOD (10/14/2018 12:00 AM PDT) + + + + [...] [facility] - | [address] | [place] [address] | | | IMMUNOGENETICS/TRANS | [address] | | | | [facility] | | | | + + + + + LIT FLOW HLA AB PRA SCREEN I/II (10/14/2018 12:00 AM PDT) + + | Specimen | + + | Blood - Blood | | (substance) | + + + + + + + | Performing | Address | City/State/Zipcode | Phone Number | | Organization | | | | + + + + + | [facility] - | [address] | [place] [address] | | | IMMUNOGENETICS/TRANS | [address] | | | | [facility] | | | | + + + + + documented in this encounter Visit Diagnoses Not on filedocumented in this encounter"
--- OUTSIDE RECORDS SUMMARY | ~2019-01-14 | XMS | Encounter Summary ---
Demographics + + + | Address | [address] | | | [place] [address] | + + + | Home Phone | | + + + | Preferred Language | Unknown | + + + | Marital Status | Single | + + + | Mandaeism Affiliation | Unknown | + + + [...] Team Providers + +------+ + | Care Circulation Worker Name | Role | Phone | [...] | | | | | [address] [place], | | | | | | [place] [address] | | | +--------+ + + + [...] + | [facility] - | [address], | [place] [address] | | | IMMUNOGENETICS/TRANS | [address] [...] + + | [facility] - | [address] | [place] [address] | | | IMMUNOGENETICS/TRANS | [address] [...] [facility] - | [address] | [place] [address] | | | IMMUNOGENETICS/TRANS | [address] | | | | [facility] | | | | + + + + + documented in this encounter Visit Diagnoses Not on filedocumented in this encounter"
--- OUTSIDE RECORDS SUMMARY | ~2019-01-14 | XMS | Encounter Summary ---
Demographics + + + | Address | [address] | | | [place] [address] | + + + | Home Phone [...] Author + + + | Author | [facility] | + + + | Organization | [facility] | + + + | Address | Unknown | + + + | Phone | Unavailable | + + + Care Team Providers + +------+ + | Care Fireworks Maker Name | Role | Phone | + +------+ + PCP | Unavailable | + +------+ + Encounter Details +--------+ + + + + | Date | Type | Department | Care Team | Description | +--------+ + + + + | 12/22/ | Lab | LAB IMMUNOGENETIC | | | | 2015 | Requisition | AND TRANSPLANT LAB | | | | | | [address] | | | | | | [address] [place], | | | | | | [place] [address] | | | +--------+ + + + [...] FLOW HLA AB PRA | Routin | 12/16/2015 | | | | SCREEN I/II | e | 12:00 AM | | | | | | PDT | | | + +--------+ + + + documented in this encounter Results LIT FLOW HLA AB PRA SCREEN I/II (12/16/2015 12:00 AM PDT) + + | Specimen | + + | Blood - Blood | | (substance) | + + + + + + + | Performing | Address | City/State/Zipcode | Phone Number | | Organization | | | | + + + + + | [facility] - | [address] | [place] [address] | | | IMMUNOGENETICS[facility]TRANS | [address] | | | | [facility] | | | | + + + + + documented in this encounter Visit Diagnoses Not on filedocumented in this encounter"
--- OUTSIDE RECORDS SUMMARY | ~2019-01-14 | XMS | Clinical Summary ---
Demographics + + + | Address | [address] | | | [place] [address] | + + + | Home Phone | | + + + | Preferred Language | Unknown | + + + | Marital Status | | + + + | Anglican Affiliation | 1077 | + + + | Race | Unknown | + + + | Ethnic Group | Unknown | + + + Author + + + | Author | [facility] | | | and [place] | + + + | Organization | [facility] | | | and [...] [place], | | | | | [place] [address] | | + + + + + | Eron Sheth | ECON | Unknown | | + + + + + Care Team Providers + +------+ + | Care Benefits Consultant Name | Role | Phone | + [...] | + + + +---------+------+------+-------+ | B Rwvynwc-Z-Zndke | | | 0 | 06/0 | [...] dialysis | | | | | | ([facility]) (Primary Dx) | +--------+---------+ + + + [...] N | | | | | | [facility] | | | | | | [place] | | | | | | [address] | | | | | | [phone] | | | | | | | | +--------+---------+ + + + | 03/02/ | Office | Nephrology | Chantelle Aly | | | 2018 | Visit | | [address] | | | | | | [facility] | | | | | | [place] | | | | | | [address] | | | | | | [phone] | | | | | | | | +--------+---------+ + + + | 04/06/ | Office | Nephrology | Chantelle Aly | | | 2019 | Visit | | [address] | | | | | | [facility] | | | | | | [place] | | | | | | [address] | | | | | | [phone] | | | | | | | | +--------+---------+ + + + | 05/04/ | Office | Nephrology | Chantelle Aly | | | 2019 | Visit | | [address], [address] | | | | | | [facility] | | | | | | [place] | | | | | | [address] | | | | | | [phone] | | | | | | | | +--------+---------+ + + + | 06/12/ | Office | Nephrology | Chantelle Aly | | | 2019 | Visit | | [address] | | | | | | [facility] | | | | | | [place] | | | | | | [address] | | | | | | [phone] | | | | | | | | +--------+---------+ + + + | 07/03/ | Office | Nephrology | Chantelle Aly | | | 2019 | Visit | | [address], [address] | | | | | | [facility] | | | | | | [place] | | | | | | [address] | | | | | | [phone] | | | | | | | | +--------+---------+ + + + | 08/07/ | Office | Nephrology | Chantelle Aly | | | 2019 | Visit | | [address], [address] | | | | | | [facility] | | | | | | [place] | | | | | | [address] | | | | | | [phone] | | | | | | | | +--------+---------+ + + + | 09/11/ | Office | Nephrology | Chantelle Aly | | | 2019 | Visit | | [address], [address] | | | | | | [facility] | | | | | | [place] | | | | | | [address] | | | | | | [phone] | | | | | | | | +--------+---------+ + + + | 09/27/ | Office | Nephrology | Chantelle Aly | | | 2019 | Visit | | [address], [address] | | | | | | [facility] | | | | | | [place] | | | | | | [address] | | | | | | [phone] | | | | | | | | +--------+---------+ + + + | 11/06/ | Office | Nephrology | Chantelle Aly | | | 2019 | Visit | | [address], [address] | | | | | | [facility] | | | | | | [place] | | | | | | [address] | | | | | | [phone] | | | | | | | | +--------+---------+ + + + | 12/11/ | Office | Nephrology | Chantelle Aly | | | 2019 | Visit | | A, [address] | | | | | | [facility] | | | | | | [place] | | | | | | [address] | | | | | | [phone] | | | | | | | | +--------+---------+ + + + | 01/03/ | Office | Nephrology | Chantelle Aly | | | 2019 | Visit | | [address], [address] | | | | | | [facility] | | | | | | [place] | | | | | | [address] | | | | | | [phone] | | | | | | | | +--------+---------+ + + + | 02/05/ | Office | Nephrology | Chantelle Aly | | | 2019 | Visit | | MD [address] | | | | | | [place] | | | | | | [place] | | | | | | [address] | | | | | | [phone] | | | | | | | [...] | | 04/14/ | 00-111 | | [id number]: Qty: 1 on | | Foot | ZIMM | | 2020 | 2-140- | | 09/03/2015 by Mikey Burton | | | | | | 01 / | | T, DPM | | | | | | /[id number] | | | | | | | | 473 | + +------+--------+ +--------+--------+--------+ | [employer] Flexspan Flexible | | Right: | PRIEST | | 08/26/ | [id number] | | Hinge Toe With | | Toe | MEDICAL | | 2023 | 04 / | | GrommetsImplanted: Qty: 1 on | | | TECHNOLOGY | | | /[id number] | | 01/07/2016 by Mikey Burton, | | | INC- [id number] | | | 47 | | DPM [...] +--------+ +---------+--------+ | MEDICARE | MEDICA | [id number] | 11/14/19 | [phone] | | Medica | | | RE | | 00-Pre | 5 | | re | | | PART A | | sent | | | | | | AND B | | | | | | + +--------+ +--------+ +---------+--------+ | MEDICARE | MEDICA | [id number] | 09/12/18 | [phone] | | Medica | | | RE | | 94-Pre | 5 | | re | | | PART A | | sent | | | | | | AND B | | | | | | + +--------+ +--------+ +---------+--------+ | BCBS | BCBS | [id number] | 10/13/18 | | | PPO | | | OOS | 0 | 96-Pre | | | | | | PPO | | sent | | | | + +--------+ +--------+ +---------+--------+ | BCBS | BCBS | [id number] | 03/15/19 | | | Indemn | [...] [place] | | | 1 (Home) | [id number] | + +--------+ +--------+ + + | Marie Abdi | Person | Self | [birth year] | [address] | | [place] | al/Fam | | 1965 | | [place], [place] | | | [place] | | | 1 (Home) | [phone] | + +--------+ +--------+ + + Advance Directives Patient has advance care planning documents, and code status on file. For more information, please contact:[facility] [place] [address] + + + + + | Code [...]
--- OUTSIDE RECORDS SUMMARY | ~2019-01-14 | XMS | Encounter Summary ---
Demographics + + + | Address | [address] | | | [place] [address] | + + + | Home Phone | | + + + | Preferred Language | Unknown | + + + | Marital Status | Single | + + + | Mandaen Affiliation | Unknown | + + + [...] Team Providers + +------+ + | Care Assistant Strength Coach Name | Role | Phone | + +------+ + PCP | Unavailable | + +------+ + Encounter Details +--------+ + + + + | Date | Type | Department | Care Team | Description | +--------+ + + + + | 05/20/ | Lab | LAB IMMUNOGENETIC | | | | 2016 | Requisition | [facility] LAB | | | | | | [address] | | | | | | [address] [place], | | | | | | [place] [address] | | | +--------+ + + + [...] FLOW HLA AB PRA | Routin | 05/15/2016 | | | | SCREEN I/II | e | 12:00 AM | | | | | | PST | | | + +--------+ + + + documented in this encounter Results LIT FLOW HLA AB PRA SCREEN I/II (05/15/2016 12:00 AM PST) + + | Specimen | + + | Blood - Blood | | (substance) | + + + + + + + | Performing | Address | City/State/Zipcode | Phone Number | | Organization | | | | + + + + + | [facility] - | [address] | [place] [address] | | | IMMUNOGENETICS/TRANS | [address] | | | | [facility] | | | | + + + + + documented in this encounter Visit Diagnoses Not on filedocumented in this encounter"
--- OUTSIDE RECORDS SUMMARY | ~2019-01-14 | XMS | Encounter Summary ---
Demographics + + + | Address | [address] | | | [place] [address] | + + + | Home Phone | | + + + | Preferred Language | Unknown | + + + | Marital Status | Single | + + + | Buddhist Affiliation | Unknown | + + + | Race | Unknown | + + + | Ethnic Group | Other Race | + + + Author + + + | Author | [facility] | + + + | Organization | [facility] | + + + | Address | Unknown | + + + | Phone | Unavailable | + + + Care Team Providers + +------+ + | Care Marker Delivery Name | Role | Phone | + +------+ + PCP | Unavailable | + +------+ + Encounter Details +--------+ + + + + | Date | Type | Department | Care Team | Description | +--------+ + + + + | 06/21/ | Results | Registration [id number] | [address] | | | 2008 | Only | [address] | [phone] | | | | | Rd Mailcode: [id number] | | | | | | [place], [place] | | | | | | [address] | | | | | | [phone] | | | +--------+ + + + [...] | + +--------+ + + + | DERMATOPATHOLOGY(CON | Routin | 06/21/2008 | | Results for this | | SULT) | e | | | procedure are in the | | | | | | results section. | + +--------+ + + + documented in this encounter Results DERMATOPATHOLOGY(CONSULT) (06/21/2008) + + + + + + | Component | Value | Ref Range | Performed | Pathologist | | | | | At | Signature | + + + + + + | DERMATOPATH | SOURCE OF SPECIMEN:A | | | | | (CONSULT) | CONSULTATIONCLINICAL | | | | | | DESCRIPTION:Mengve, Lower | | | | | | back; clinically SK; | | | | | | confluent melanocytes at | | | | | | DE-junction withatypia; | | | | | | ?MMIS1 outside slide | | | | | | ([id number]) | | | | | | received.Dear | | | | | | Carnation: Thank you | | | | | | for asking us to review | | | | | | Marie Abdi's | | | | | | lower backbiopsy, where, | | | | | | as you indicated, there | | | | | | is a dome shaped papule | | | | | | overlyingthin, | | | | | | elongated and | | | | | | hyperpigmented rete | | | | | | ridges. There is a | | | | | | proliferationof nests as | | | | | | well as numerous single | | | | | | melanocytes distributed | | | | | | predominantlyat the | | | | | | sides and tips of rete | | | | | | ridges. Most of the | | | | | | melanocytic nuclei | | | | | | aresmall to moderately | | | | | | large, some are mildly | | | | | | pleomorphic and most of | | | | | | thecells contain | | | | | | amphophilic cytoplasm | | | | | | with melanin. There | | | | | | are | | | | | | scatteredmelanophages in | | | | | | the upper dermis where | | | | | | there is also papillary | | | | | | dermalfibrosis and a | | | | | | sparse, lymphocytic | | | | | | infiltrate.DIAGNOSIS:SAE | | | | | | ANOCYTIC NEVUS, | | | | | | JUNCTIONAL TYPE.The | | | | | | nevus extends to the | | | | | | lateral and deep | | | | | | margins.Thank you for | | | | | | referring this | | | | | | consultation.1 slide | | | | | | (WW-) returned to | | | | | | | | | | | | Vidhya.KP:mm07/02/08Case | | | | | | also reviewed by | | | | | | Saul Riley Jr., | | | | | | EdgardoRendering | | | | | | Diagnostician: Anibal | | | | | | Osvaldo | | | | | | EdgardoPathologistElectroni | | | | | | parker Signed 07/02/2008 | | | | + + + + + + + + | Specimen | + + | Other | + + + + + | Narrative | Performed At | + + + | Ordered by Akanksha Brewster MD | | + + + + + + + + | Performing | Address | City/State/Zipcode | Phone Number | | Organization | | | | + + + + + | [facility] | [address] | [place] [address] | | | DERMATOPATHOLOGY | [address] | | | + + + + + documented in this encounter Visit Diagnoses Not on filedocumented in this encounter"
--- OUTSIDE RECORDS SUMMARY | ~2019-01-14 | XMS | Encounter Summary ---
Demographics + + + | Address | [address] | | | [place] [address] | + + + | Home Phone | | + + + | Preferred Language | Unknown | + + + | Marital Status | Single | + + + | Anglican Affiliation | Unknown | + + + | Race | Unknown | + + + | Ethnic Group | Other Race | + + + Author + + + | Author | [facility] | + + + | Organization | [facility] | + + + | Address | Unknown | + + + | Phone | Unavailable | + + + Care Team Providers + +------+ + | Care Operating Room Technician Name | Role | Phone | + [...] | | | | | [address] [place], | | | | | | [place] [address] | | | +--------+ + + + [...] | [facility] - | [address] | [place] [address] | | | IMMUNOGENETICS/TRANS | [address] | | | | [facility] | | | | + + + + + documented in this encounter Visit Diagnoses Not on filedocumented in this encounter"
--- OUTSIDE RECORDS SUMMARY | ~2019-01-14 | XMS | Encounter Summary ---
Demographics + + + | Address | [address] | | | [place] [address] | + + + | Home Phone | | + + + | Preferred Language | Unknown | + + + | Marital Status | | + + + | Confucianist Affiliation | 1077 | + + + | Race | Unknown | + + + | Ethnic Group | Unknown | + + + Author + + + | Author | [facility] | | | and [place] | + + + | Organization | [facility] | | | and [place] | [...] [place], | | | | | [place] [address] | | + + + + + | Eron Sheth | ECON | Unknown | | + + + + + Care Team Providers + +------+ + | Care Podiatry Assistant Name | Role | Phone | + +------+ + | Arron Buckner MD | PCP | Unavailable | + +------+ + Reason for Visit + + + | Reason | Comments | + + + | Chronic Kidney | | | Disease | | + + + Encounter Details +--------+---------+ + + + | Date | Type | Department | Care Team | Description | +--------+---------+ + + + | 01/03/ | Office | [facility] | Sheeba Chantelle | End stage renal | | 2019 | Visit | NEPHROLOGY DOLORES Walker MD [address] | failure on dialysis | | | | [address] [facility] | [facility] [place] | ([facility]) (Primary Dx) | | | | [place] | [place] | | | | | [address] | [address] | | | | | [phone] | [phone] | | | | | | | [...] + + documented as of this encounter Last Filed Vital Signs + + + + | Vital Sign | Reading | Time Taken | + + + + | Blood Pressure | 122/60 | 01/03/2019 1247 PDT | + + + + | [...] | 81.9 kg (180 lb 9.6 | 01/03/20191246 PDT | | | oz) | | + + + + | Height | - | - | + + + + | Body Mass Index | 28.29 | 10/27/2018 1359 PDT | + + + + documented in this encounter Functional Status + + + + | Functional Status | Response | Date of Assessment | + + + + | Are you deaf or do you have serious | No | 07/25/2017 | | difficulty hearing? | | | + + + + | Are you blind or do you have serious | No | 07/25/2017 | | difficulty seeing, even when wearing | | | | glasses? | | | + + + + | Do you have serious difficulty walking or | No | 07/25/2017 | | climbing stairs? (5 years old or older) | | | + + + + | Do you have difficulty dressing or bathing? | No | 07/25/2017 | | (5 years old or older) | | | + + + + | Because of a physical, mental, or emotional | No | 07/25/2017 | | condition, do you have difficulty doing | | | | errands alone such as visiting a doctor's | | | | office or shopping? [15 years old or | | | | older)] | | | + + + + + + + + | Cognitive Status | Response | Date of Assessment | + + + + | Because of a physical, mental, or emotional | No | 07/25/2017 | | condition, do you have serious difficulty | | | | concentrating, remembering, or making | | | | decisions? (5 years old or older) | | | + + + + documented as of this encounter Progress Notes Chantelle Hernandez MD - 01/03/2019 1240 PDT [facility] visit for ESRD Ms. Marie Abdi presents for Comprehensive monthly face to face evaluation. she is currently on dialysis for ESRD. Full note is documented in dialysis facility EMR . MEDS AND LABS ARE REVIEWED from monthly labs drawn at his dialysis facility for this month Physical Exam Blood pressure 122/60, pulse 52, weight 81.9 kg (180 lb 9.6 oz), SpO2 98 %, not currently b reastfeeding. Access: has an AVf in right upper [...] obtain EMR records through dialysis facility . CHANTELLE HERNANDEZ MD, FASN, FACP documented in this en counter Plan of Treatment +--------+---------+ + + + | Date | Type | Specialty | Care Team | Description | +--------+---------+ + + + | 02/02/ | Office | Nephrology | Chantelle Hernandez | | | 2018 | Visit | | MD Denise [address] | | | | | | [facility] | | | | | | [place] | | | | | | [address] | | | | | | [phone] | | | | | | | | +--------+---------+ + + + | 03/02/ | Office | Nephrology | Chantelle Hernandez | | 2018 | Visit | | MD Denise [address] | | | | | | [facility] | | | | | | [place] | | | | | | [address] | | | | | | [phone] | | | | | | | | +--------+---------+ + + + | 04/06/ | Office | Nephrology | Chantelle Hernandez | | | 2019 | Visit | | A, [address] | | | | | | [facility] [place] | | | | | | [place] | | | | | | [address] | | | | | | [phone] | | | | | | | | +--------+---------+ + + + | 05/04/ | Office | Nephrology | Chantelle Hernandez | | | 2019 | Visit | | A, [address] | | | | | | [facility] [place] | | | | | | [place] | | | | | | [address] | | | | | | [phone] | | | | | | | | +--------+---------+ + + + | 06/12/ | Office | Nephrology | Chantelle Hernandez | | | 2019 | Visit | | AMD [address] | | | | | | [facility] [place] | | | | | | [place] | | | | | | [address] | | | | | | [phone] | | | | | | | | +--------+---------+ + + + | 07/03/ | Office | Nephrology | Chantelle Hernandez | | | 2019 | Visit | | Denise, [address] | | | | | | [facility] [place] | | | | | | [place] | | | | | | [address] | | | | | | [phone] | | | | | | | | +--------+---------+ + + + | 08/07/ | Office | Nephrology | Chantelle Hernandez | | | 2019 | Visit | | A, [address] | | | | | | [facility] [place] | | | | | | [place] | | | | | | [address] | | | | | | [phone] | | | | | | | | +--------+---------+ + + + | 09/11/ | Office | Nephrology | Chantelle Hernandez | | | 2019 | Visit | | MD [address]ise [address] | | | | | | [facility] [place] | | | | | | [place] | | | | | | [address] | | | | | | [phone] | | | | | | | | +--------+---------+ + + + | 09/27/ | Office | Nephrology | Chantelle Hernandez | | | 2019 | Visit | | Denise, [address] | | | | | | [facility] [place] | | | | | | [place] | | | | | | [address] | | | | | | [phone] | | | | | | | | +--------+---------+ + + + | 11/06/ | Office | Nephrology | Chantelle Hernandez | | | 2019 | Visit | | A, [address] | | | | | | [facility] [place] [facility] | | | | | | [place] | | | | | | [address] | | | | | | [phone] | | | | | | | | +--------+---------+ + + + | 12/11/ | Office | Nephrology | Chantelle Hernandez | | | 2019 | Visit | | A, [address] | | | | | | [facility] [place] | | | | | | [place] | | | | | | [address] | | | | | | [phone] | | | | | | | | +--------+---------+ + + + | 01/03/ | Office | Nephrology | Chantelle Hernandez | | | 2019 | Visit | | MD Kate [address] | | | | | | [address] | | | | | | [place] | | | | | | [address] | | | | | | [phone] | | | | | | | | +--------+---------+ + + + | 02/05/ | Office | Nephrology | Chantelle Hernandez | | | 2019 | Visit | | MD Kate Walker [address] | | | | | | [address] [address] | | | | | | [place] | | | | | | [address] | | | | | | [phone] | | | | | | | | +--------+---------+ + + + documented as of this encounter Visit Diagnoses + + | Diagnosis | + + | End stage renal failure on dialysis (HCC) - Primary End stage renal disease | + + documented in this encounter"
--- OUTSIDE RECORDS SUMMARY | ~2019-01-14 | XMS | Encounter Summary ---
Demographics + + + | Address | [address] | | | [place] [address] | + + + | Home Phone | | + + + | Preferred Language | Unknown | + + + | Marital Status | Single | + + + | Mormon Affiliation | Unknown | + + + | Race | Unknown | + + + | Ethnic Group | Other Race | + + + Author + + + | Author | [facility] | + + + | Organization | [facility] | + + + | Address | Unknown | + + + | Phone | Unavailable | + + + Care Team Providers + +------+ + | Care Beveler Name | Role | Phone | + +------+ + PCP | Unavailable | + +------+ + Encounter Details +--------+ + + + + | Date | Type | Department | Care Team | Description | +--------+ + + + + | 07/18/ | Lab | LAB IMMUNOGENETIC | Ney Rahman, | | | 2015 | Requisition | [facility]ANSPLANT LAB | | | | | | [address] | | | | | | [address] [place], | | | | | | [place] [address] | | | +--------+ + + + [...] HLA I AB AG | Routin | 07/19/2015 | End stage renal | Results for this | | ID, BLOOD | e | 11:28 AM | disease (HCC) | procedure are in the | | | | PDT | | results section. | + +--------+ + + + documented in this encounter Results LIT FLOW HLA I AB AG ID, BLOOD (07/19/2015 11:28 AM PDT) + + + + + [...] + + | [facility] - | [address] | [place] [address] | | | IMMUNOGENETICS/TRANS | [address] | | | | [facility] | | | | + + + + + documented in this encounter Visit Diagnoses + + | Diagnosis | + + | End stage renal disease (HCC) End stage renal disease | + + documented in this encounter"
--- OUTSIDE RECORDS SUMMARY | ~2019-01-14 | XMS | Encounter Summary ---
Demographics + + + | Address | [address] | | | [place] [address] | + + + | Home Phone | | + + + | Preferred Language | Unknown | + + + | Marital Status | Single | + + + | Moravian Affiliation | Unknown | + + + [...] Team Providers + +------+ + | Care Apigee Developer Name | Role | Phone | + +------+ + PCP | Unavailable | + +------+ + Encounter Details +--------+ + + + + | Date | Type | Department | Care Team | Description | +--------+ + + + + | 09/22/ | Lab | LAB IMMUNOGENETIC | | | | 2016 | Requisition | [facility] LAB | | | | | | [address] | | | | | | [address] [place], | | | | | | [place] [address] | | | +--------+ + + + [...] FLOW HLA AB PRA | Routin | 09/22/2016 | | | | SCREEN I/II | e | 3:05 PM | | | | | | PDT | | | + +--------+ + + + documented in this encounter Results LIT FLOW HLA AB PRA SCREEN I/II (09/22/2016 3:05 PM PDT) + + | Specimen | + + | Blood - Blood | | (substance) | + + + + + + + | Performing | Address | City/State/Zipcode | Phone Number | | Organization | | | | + + + + + | [facility] - | [address] | [place] [address] | | | IMMUNOGENETICS/TRANS | [address] | | | | [facility] | | | | + + + + + documented in this encounter Visit Diagnoses Not on filedocumented in this encounter"
--- OUTSIDE RECORDS SUMMARY | ~2019-01-14 | XMS | Encounter Summary ---
Demographics + + + | Address | [address] | | | [place] [address] | + + + | Home Phone | | + + + | Preferred Language | Unknown | + + + | Marital Status | Single | + + + | Jehovah'S Witness Affiliation | Unknown | + + + [...] Team Providers + +------+ + | Care Supervisor Matrix Name | Role | Phone | + +------+ + PCP | Unavailable | + +------+ + Encounter Details +--------+ + + + + | Date | Type | Department | Care Team | Description | +--------+ + + + + | 09/20/ | Lab | LAB IMMUNOGENETIC | | | | 2019 | Requisition | [facility]PL[facility] LAB | | | | | | [address] | | | | | | [address] [place], | | | | | | [place] [address] | | | +--------+ + + + [...] FLOW HLA AB PRA | Routin | 09/20/2018 | | | | SCREEN I/II | e | 2:23 PM | | | | | | PDT | | | + +--------+ + + + documented in this encounter Results LIT FLOW HLA AB PRA SCREEN I/II (09/20/2018 2:23 PM PDT) + + | Specimen | + + | Blood - Blood | | (substance) | + + + + + + + | Performing | Address | City/State/Zipcode | Phone Number | | Organization | | | | + + + + + | [facility] - | [address] | [place] [address] | | | IMMUNOGENETICS/TRANS | [address] | | | | [facility] | | | | + + + + + documented in this encounter Visit Diagnoses Not on filedocumented in this encounter"
--- OUTSIDE RECORDS SUMMARY | ~2019-01-14 | XMS | Encounter Summary ---
Demographics + + + | Address | [address] | | | [place] [address] | + + + | Home Phone | | + + + | Preferred Language | Unknown | + + + | Marital Status | Single | + + + | Restoration Affiliation | Unknown | + + + [...] Team Providers + +------+ + | Care Shade Classifier Name | Role | Phone | + [...] | | | | | [address] [place], | | | | | | [place] [address] | | | +--------+ + + + [...] FLOW HLA AB PRA | Routin | 07/21/2016 | | | | SCREEN I/II | e | 7:24 AM | | | | | | PDT | | | + +--------+ + + + documented in this encounter Results LIT FLOW HLA AB PRA SCREEN I/II (07/21/2016 7:24 AM PDT) + + | Specimen | + + | Blood - Blood | | (substance) | + + + + + + + | Performing | Address | City/State/Zipcode | Phone Number | | Organization | | | | + + + + + | [facility] - | [address] | [place] [address] | | | [facility] | [address] | | | | [facility] | | | | + + + + + documented in this encounter Visit Diagnoses Not on filedocumented in this encounter"
--- OUTSIDE RECORDS SUMMARY | ~2019-01-14 | XMS | Encounter Summary ---
Demographics + + + | Address | [address] | | | [place] [address] | + + + | Home Phone [...] Team Providers + +------+ + | Care Lifestyle Director Name | Role | Phone | [...] | | | | | [address] [place], | | | | | | [place] [address] | | | +--------+ + + + [...] | [facility] - | [address] | [place] [address] | | | IMMUNOGENETICS/TRANS | [address] | | | | [facility] | | | | + + + + + documented in this encounter Visit Diagnoses Not on filedocumented in this encounter"
--- OUTSIDE RECORDS SUMMARY | ~2019-01-14 | XMS | Encounter Summary ---
Demographics + + + | Address | [address] | | | [place] [address] | + + + | Home Phone | | + + + | Preferred Language | Unknown | + + + | Marital Status | Single | + + + | Hindu Affiliation | Unknown | + + + | Race | Unknown | + + + | Ethnic Group | Other Race | + + + Author + + + | Organization | Unknown | + + + | Address | Unknown | + + + | Phone | Unavailable | + + + Care Team Providers + +------+ + | Care Pizza Chef Name | Role | Phone | + +------+ + PCP | Unavailable | + +------+ + Encounter Details +--------+ + + + + | Date | Type | Department | Care Team | Description | +--------+ + + + + | 08/04/ | Results | | Other, Faculty | | | 2000 | Only | | [phone] | | +--------+ + + + + [...] + + | DERMATOPATHOLOGY(WET | Routin | 08/04/2000 | | Results for this | | [place]) | e | | | procedure are in the | | | | | | results section. | + +--------+ + + + documented in this encounter Results DERMATOPATHOLOGY(WET [place]) (08/04/2000) + + + + + + | Component | Value | Ref Range | Performed | Pathologist | | | | | At | Signature | + + + + + + | DERMATOPATH | SOURCE OF SPECIMEN: | | | | | OLOGY(WET | FIRST TISSUE LEVEL IV | | | | | MNT) | [address] CLINICAL | | | | | | DESCRIPTION:2mm, Bx., | | | | | | rt. belcher; pt. with renal | | | | | | failure on dialysis; | | | | | | nephrologistworried | | | | | | about calciphylaxis; | | | | | | clinically lichenified | | | | | | plaques on | | | | | | induratedskin; ? LSC; | | | | | | lipodermatosclerosis; | | | | | | R/O calciphylaxis. GROSS | | | | | | DESCRIPTION:Right belcher, | | | | | | punch, 0.3 x0 .3 cm. | | | | | | MICROSCOPIC | | | | | | DESCRIPTION:There is | | | | | | confluent parakeratosis, | | | | | | a decreased granular | | | | | | layer, | | | | | | psoriasiformepidermal | | | | | | hyperplasia and dilated | | | | | | blood vessels surrounded | | | | | | by an infiltratein the | | | | | | edematous papillary | | | | | | dermis. | | | | | | DIAGNOSIS:PSORIASIS.NOTE | | | | | | : There is no evidence | | | | | | of subcutaneous fat at | | | | | | the base of the | | | | | | specimento evaluate for | | | | | | the possibility of | | | | | | panniculitis although | | | | | | that seemsunlikely given | | | | | | the epidermal changes. | | | | | | KRYSTIN/jyi08/11/2000Renderin | | | | | | g Diagnostician: | | | | | | Saul Riley Jr., | | | | | | EdgradoPathologistElectroni | | | | | | parker Signed | | | | | | 08/11/2000Comment: | | | | | | SOURCE OF SPECIMEN: | | | | | | FIRST TISSUE LEVEL IV | | | | | | 20206 | | | | + + + + + + + + | Specimen | + + | | + + + + + | Narrative | Performed At | + + + | Ordered by Vidhya Brewster | | + + + + + + + + | Performing | Address | City/State/Zipcode | Phone Number | | Organization | | | | + + + + + | [facility] | [address] | [place] [address] | | | DERMATOPATHOLOGY | [address] | | | + + + + + documented in this encounter Visit Diagnoses Not on filedocumented in this encounter"
--- OUTSIDE RECORDS SUMMARY | ~2019-01-14 | XMS | Encounter Summary ---
Demographics + + + | Address | [address] | | | [place] [address] | + + + | Home Phone [...] Author + + + | Author | [facility] | + + + | Organization | [facility] | + + + | Address | Unknown | + + + | Phone | Unavailable | + + + Care Team Providers + +------+ + | Care Support Services Coordinator Name | Role | Phone | [...] | | | | | [address] [place], | | | | | | [place] [address] | | | +--------+ + + + [...] | [facility] - | [address] | [place] [address] | | | IMMUNOGENETICS/TRANS | [address] | | | | [facility] | | | | + + + + + documented in this encounter Visit Diagnoses Not on filedocumented in this encounter"
--- OUTSIDE RECORDS SUMMARY | ~2019-01-14 | XMS | Encounter Summary ---
Demographics + + + | Address | [address] | | | [place] [address] | + + + | Home Phone | | + + + | Preferred Language | Unknown | + + + | Marital Status | Single | + + + | Episcopalian Affiliation | Unknown | + + + | Race | Unknown | + + + | Ethnic Group | Other Race | + + + Author + + + | Author | [facility] | + + + | Organization | [facility] | + + + | Address | Unknown | + + + | Phone | Unavailable | + + + Care Team Providers + +------+ + | Care Tours Hostess Name | Role | Phone | + +------+ + PCP | Unavailable | + +------+ + Encounter Details +--------+ + + + + | Date | Type | Department | Care Team | Description | +--------+ + + + + | 02/18/ | Lab | LAB IMMUNOGENETIC | | | | 2015 | Requisition | AND TRANSPLANT LAB | | | | | | [address] | | | | | | [address] [place], | | | | | | [place] [address] | | | +--------+ + + + [...] FLOW HLA AB PRA | Routin | 02/19/2016 | | | | SCREEN I/II | e | 5:00 PM | | | | | | PST | | | + +--------+ + + + documented in this encounter Results LIT FLOW HLA AB PRA SCREEN I/II (02/19/2016 5:00 PM PST) + + | Specimen | + + | Blood - Blood | | (substance) | + + + + + + + | Performing | Address | City/State/Zipcode | Phone Number | | Organization | | | | + + + + + | [facility] - | [address] | [place] [address] | | | IMMUNOGENETICS/TRANS | [address] | | | | [facility] | | | | + + + + + documented in this encounter Visit Diagnoses Not on filedocumented in this encounter"
--- OUTSIDE RECORDS SUMMARY | ~2019-01-14 | XMS | Encounter Summary ---
Demographics + + + | Address | [address] | | | [place] [address] | + + + | Home Phone | | + + + | Preferred Language | Unknown | + + + | Marital Status | | + + + | Amish Affiliation | 1077 | + + + | Race | Unknown | + + + | Ethnic Group | Unknown | + + + Author + + + | Author | [facility] | | | and [place] | + + + | Organization | [facility] | | | and [place] | [...] [place], | | | | | [place] [address] | | + + + + + | Eron Sheth | ECON | Unknown | | + + + + + Care Team Providers + +------+ + | Care Hatchery Man Name | Role | Phone | + [...] + + | 01/03/ | Office | [facility] | Sheeba Chantelle | End stage renal | | 2019 | Visit | NEPHROLOGY DOLORES Walker MD [address] | failure on dialysis | | | | [address] [facility] | [facility] [place] Walker | ([facility]) (Primary Dx) | | | | [place] | [place] | | | | | [address] | [address] | | | | | [phone] | [phone] | | | | | | | [...] Chantelle Hernandez MD - 01/03/2019 1240 PDT [facility] visit for ESRD Ms. Marie Abdi presents [...] N | | | | | | [facility] | | | | | | [place] | | | | | | [address] | | | | | | [phone] | | | | | | | | +--------+---------+ + + + | 03/02/ | Office | Nephrology | Chantelle Hernandez | | 2018 | Visit | | MD Denise [address] | | | | | | [facility] | | | | | | [place] | | | | | | [address] | | | | | | [phone] | | | | | | | | +--------+---------+ + + + | 04/06/ | Office | Nephrology | Chantelle Hernandez | | | 2019 | Visit | | A, [address] | | | | | | [facility] [place] [facility] | | | | | | [place] | | | | | | [address] | | | | | | [phone] | | | | | | | | +--------+---------+ + + + | 05/04/ | Office | Nephrology | Chantelle Hernandez | | | 2019 | Visit | | A, [address] | | | | | | [facility] [place] | | | | | | [place] | | | | | | [address] | | | | | | [phone] | | | | | | | | +--------+---------+ + + + | 06/12/ | Office | Nephrology | Chantelle Hernandez | | | 2019 | Visit | | AMD [address] | | | | | | [facility] [place] | | | | | | [place] | | | | | | [address] | | | | | | [phone] | | | | | | | | +--------+---------+ + + + | 07/03/ | Office | Nephrology | Chantelle Hernandez | | | 2019 | Visit | | Denise, [address] | | | | | | [facility] [place] | | | | | | [place] | | | | | | [address] | | | | | | [phone] | | | | | | | | +--------+---------+ + + + | 08/07/ | Office | Nephrology | Chantelle Hernandez | | | 2019 | Visit | | A, [address] | | | | | | [facility] | | | | | | [place] | | | | | | [address] | | | | | | [phone] | | | | | | | | +--------+---------+ + + + | 09/11/ | Office | Nephrology | Chantelle Hernandez | | | 2019 | Visit | | MD Denise [address] | | | | | | [facility] | | | | | | [place] | | | | | | [address] | | | | | | [phone] | | | | | | | | +--------+---------+ + + + | 09/27/ | Office | Nephrology | Chantelle Hernandez | | | 2019 | Visit | | Denise, [address] | | | | | | [facility] | | | | | | [place] | | | | | | [address] | | | | | | [phone] | | | | | | | | +--------+---------+ + + + | 11/06/ | Office | Nephrology | Chantelle Hernandez | | | 2019 | Visit | | A, [address] | | | | | | [facility] [place] | | | | | | [place] | | | | | | [address] | | | | | | [phone] | | | | | | | | +--------+---------+ + + + | 12/11/ | Office | Nephrology | Chantelle Hernandez | | | 2019 | Visit | | A, [address] | | | | | | [facility] | | | | | | [place] | | | | | | [address] | | | | | | [phone] | | | | | | | | +--------+---------+ + + + | 01/03/ | Office | Nephrology | Chantelle Hernandez | | | 2019 | Visit | | MD Kate Walker [address] | | | | | | [place] | | | | | | [place] | | | | | | [address] | | | | | | [phone] | | | | | | | | +--------+---------+ + + + | 02/05/ | Office | Nephrology | Chantelle Hernandez | | | 2019 | Visit | | MD Kate Walker [address] | | | | | | [place] | | | | | | [place] | | | | | | [address] | | | | | | [phone] | | | | | | | | +--------+---------+ + + + documented as of this encounter Visit Diagnoses + + | Diagnosis | + + | End stage renal failure on dialysis (HCC) - Primary End stage renal disease | + + documented in this encounter"
--- OUTSIDE RECORDS SUMMARY | ~2019-01-14 | XMS | Encounter Summary ---
Demographics + + + | Address | [address] | | | [place] [address] | + + + | Home Phone [...] Team Providers + +------+ + | Care Block Inspector Name | Role | Phone | + +------+ + PCP | Unavailable | + +------+ + Encounter Details +--------+ + + + + | Date | Type | Department | Care Team | Description | +--------+ + + + + | 06/01/ | Lab | LAB IMMUNOGENETIC | | | | 2017 | Requisition | AND TRANSPLANT LAB | | | | | | [address] | | | | | | [address] [place], | | | | | | [place] [address] | | | +--------+ + + + [...] FLOW HLA AB PRA | Routin | 06/01/2017 | | | | SCREEN I/II | e | 9:11 AM | | | | | | PDT | | | + +--------+ + + + documented in this encounter Results LIT FLOW HLA AB PRA SCREEN I/II (06/01/2017 9:11 AM PDT) + + | Specimen | + + | Blood - Blood | | (substance) | + + + + + + + | Performing | Address | City/State/Zipcode | Phone Number | | Organization | | | | + + + + + | [facility] - | [address] | [place] [address] | | | IMMUNOGENETICS/TRANS | [address] | | | | [facility] | | | | + + + + + documented in this encounter Visit Diagnoses Not on filedocumented in this encounter"
--- OUTSIDE RECORDS SUMMARY | ~2019-01-14 | XMS | Encounter Summary ---
Demographics + + + | Address | [address] | | | [place] [address] | + + + | Home Phone | | + + + | Preferred Language | Unknown | + + + | Marital Status | Single | + + + | Orthodoxy Affiliation | Unknown | + + + [...] Team Providers + +------+ + | Care Laborer Pullet Farm Name | Role | Phone | + [...] | | | | | [address] [place], | | | | | | [place] [address] | | | +--------+ + + + [...] | [facility] - | [address] | [place] [address] | | | IMMUNOGENETICS/TRANS | [address] | | | | [facility] | | | | + + + + + documented in this encounter Visit Diagnoses Not on filedocumented in this encounter"
--- OUTSIDE RECORDS SUMMARY | ~2019-01-14 | XMS | Encounter Summary ---
Demographics + + + | Address | [address] | | | [place] [address] | + + + | Home Phone | | + + + | Preferred Language | Unknown | + + + | Marital Status | | + + + | Buddhist Affiliation | 1077 | + + + | Race | Unknown | + + + | Ethnic Group | Unknown | + + + Author + + + | Author | [facility] (Historical as of | | | 10-29-18) | + + + | Organization | [facility] (Historical as of | | | 10-29-18) [...] Team Providers + +------+ + | Care Manager Foreign Name | Role | Phone | + +------+ + | Arron Bucknre MD | PCP | Unavailable | + +------+ + Reason for Visit +--------+ + | Reason | Comments | +--------+ + | Other | September 2018-Vidal Provider Todd Escamilla Note | +--------+ + Encounter Details +--------+ + + + + | Date | Type | Department | Care Team | Description | +--------+ + + + + | 10/19/ | Documentati | [facility] | Sheeba Jumanaerin | Other (September | | 2018 | on Only | [address] | MD Denise [address] | 2019-Vidal Provider | | | | [address] | [facility] A | Dialysis Rounding | | | | [place] [address] | [place], [place] | Note) | | | | [phone] | [address] | | | | | | [phone] | | | | | | | | +--------+ + + + [...] + + + as of this encounter Plan of Treatment +--------+---------+ + + + | Date | Type | Specialty | Care Team | Description | +--------+---------+ + + + | 02/02/ | Office | Nephrology | Chantelle Aly | | | 2018 | Visit | | MD Kate Walker N | | | | | | [place] | | | | | | [place] | | | | | | [address] | | | | | | [phone] | | | | | | | | +--------+---------+ + + + | 03/02/ | Office | Nephrology | Chantelle Aly | | | 2018 | Visit | | MD Kate Walker [address] | | | | | | [facility] A | | | | | | [place] | | | | | | [address] | | | | | | [phone] | | | | | | | | +--------+---------+ + + + as of this encounter Visit Diagnoses Not on filein this encounter"
--- OUTSIDE RECORDS SUMMARY | ~2019-01-14 | XMS | Encounter Summary ---
Demographics + + + | Address | [address] | | | [place] [address] | + + + | Home Phone | | + + + | Preferred Language | Unknown | + + + | Marital Status | Single | + + + | Sikhism Affiliation | Unknown | + + + [...] Team Providers + +------+ + | Care Subassemblies Wirer Name | Role | Phone | + +------+ + PCP | Unavailable | + +------+ + Encounter Details +--------+ + + + + | Date | Type | Department | Care Team | Description | +--------+ + + + + | 11/19/ | Lab | LAB IMMUNOGENETIC | | | | 2018 | Requisition | AND TRANSPLANT LAB | | | | | | [address] | | | | | | [address] [place], | | | | | | [place] [address] | | | +--------+ + + + [...] FLOW HLA AB PRA | Routin | 11/15/2017 | | | | SCREEN I/II | e | 12:00 AM | | | | | | PDT | | | + +--------+ + + + documented in this encounter Results LIT FLOW HLA AB PRA SCREEN I/II (11/15/2017 12:00 AM PDT) + + | Specimen | + + | Blood - Blood | | (substance) | + + + + + + + | Performing | Address | City/State/Zipcode | Phone Number | | Organization | | | | + + + + + | [facility] - | [address] | [place] [address] | | | IMMUNOGENETICS/TRANS | [address] | | | | [facility] | | | | + + + + + documented in this encounter Visit Diagnoses Not on filedocumented in this encounter"
--- OUTSIDE RECORDS SUMMARY | ~2019-01-14 | XMS | Encounter Summary ---
Demographics + + + | Address | [address] | | | [place] [address] | + + + | Home Phone [...] Team Providers + +------+ + | Care Centrifugal Wax Molder Name | Role | Phone | + [...] | | | | | [address] [place], | | | | | | [place] [address] | | | +--------+ + + + [...] | [facility] - | [address] | [place] [address] | | | IMMUNOGENETICS/TRANS | [address] | | | | [facility] | | | | + + + + + documented in this encounter Visit Diagnoses Not on filedocumented in this encounter"
--- OUTSIDE RECORDS SUMMARY | ~2019-01-14 | XMS | Encounter Summary ---
Demographics + + + | Address | [address] | | | [place] [address] | + + + | Home Phone | | + + + | Preferred Language | Unknown | + + + | Marital Status | Single | + + + | Bahai Affiliation | Unknown | + + + | Race | Unknown | + + + | Ethnic Group | Other Race | + + + Author + + + | Author | [facility] | + + + | Organization | [facility] | + + + | Address | Unknown | + + + | Phone | Unavailable | + + + Care Team Providers + +------+ + | Care Silk Top Hat Body Maker Name | Role | Phone | [...] | | | | | [address] [place], | | | | | | [place] [address] | | | +--------+ + + + [...] | [facility] - | [address] | [place] [address] | | | IMMUNOGENETICS/TRANS | [address] | | | | [facility] | | | | + + + + + documented in this encounter Visit Diagnoses Not on filedocumented in this encounter"
--- OUTSIDE RECORDS SUMMARY | ~2019-01-14 | XMS | Encounter Summary ---
Demographics + + + | Address | [address] | | | [place] [address] | + + + | Home Phone [...] Team Providers + +------+ + | Care Group Social Worker Name | Role | Phone | + +------+ + PCP | Unavailable | + +------+ + Encounter Details +--------+ + + + + | Date | Type | Department | Care Team | Description | +--------+ + + + + | 03/30/ | Lab | LAB IMMUNOGENETIC | | | | 2019 | Requisition | AND TRANSPLANT LAB | | | | | | [address] | | | | | | [address] [place], | | | | | | [place] [address] | | | +--------+ + + + [...] FLOW HLA AB PRA | Routin | 03/30/2018 | | | | SCREEN I/II | e | 12:47 PM | | | | | | PST | | | + +--------+ + + + documented in this encounter Results LIT FLOW HLA AB PRA SCREEN I/II (03/30/2018 12:47 PM PST) + + | Specimen | + + | Blood - Blood | | (substance) | + + + + + + + | Performing | Address | City/State/Zipcode | Phone Number | | Organization | | | | + + + + + | [facility] - | [address] | [place] [address] | | | IMMUNOGENETICS/TRANS | [address] | | | | [facility] LAB[facility]ATORY | | | | + + + + + documented in this encounter Visit Diagnoses Not on filedocumented in this encounter"
--- OUTSIDE RECORDS SUMMARY | ~2019-01-14 | XMS | Encounter Summary ---
Demographics + + + | Address | [address] | | | [place] [address] | + + + | Home Phone [...] Author + + + | Author | [facility] | + + + | Organization | [facility] | + + + | Address | Unknown | + + + | Phone | Unavailable | + + + Care Team Providers + +------+ + | Care Process Cheese Cooker Name | Role | Phone | + +------+ + PCP | Unavailable | + +------+ + Encounter Details +--------+ + + + + | Date | Type | Department | Care Team | Description | +--------+ + + + + | 11/18/ | Lab | LAB IMMUNOGENETIC | | | | 2015 | Requisition | AND TRANSPLANT LAB | | | | | | [address] | | | | | | [address] [place], | | | | | | [place] [address] | | | +--------+ + + + [...] FLOW HLA AB PRA | Routin | 11/19/2015 | | | | SCREEN I/II | e | 3:43 PM | | | | | | PDT | | | + +--------+ + + + documented in this encounter Results LIT FLOW HLA AB PRA SCREEN I/II (11/19/2015 3:43 PM PDT) + + | Specimen | + + | Blood - Blood | | (substance) | + + + + + + + | Performing | Address | City/State/Zipcode | Phone Number | | Organization | | | | + + + + + | [facility] - | [address] | [place] [address] | | | IMMUNOGENETICS/TRANS | [address] | | | | [facility] LAB[facility]ATORY | | | | + + + + + documented in this encounter Visit Diagnoses Not on filedocumented in this encounter"
--- OUTSIDE RECORDS SUMMARY | ~2019-01-14 | XMS | Encounter Summary ---
Demographics + + + | Address | [address] | | | [place] [address] | + + + | Home Phone | | + + + | Preferred Language | Unknown | + + + | Marital Status | Single | + + + | Islam Affiliation | Unknown | + + + | Race | Unknown | + + + | Ethnic Group | Other Race | + + + Author + + + | Author | [facility] | + + + | Organization | [facility] | + + + | Address | Unknown | + + + | Phone | Unavailable | + + + Care Team Providers + +------+ + | Care Radiologic Technologist Mammogram Name | Role | Phone | + [...] | | | | | [address] [place], | | | | | | [place] [address] | | | +--------+ + + + [...] | [facility] - | [address] | [place] [address] | | | IMMUNOGENETICS/TRANS | [address] | | | | [facility] | | | | + + + + + documented in this encounter Visit Diagnoses Not on filedocumented in this encounter"
--- OUTSIDE RECORDS SUMMARY | ~2019-01-14 | XMS | Encounter Summary ---
Demographics + + + | Address | [address] | | | [place] [address] | + + + | Home Phone | | + + + | Preferred Language | Unknown | + + + | Marital Status | Single | + + + | Yazidism Affiliation | Unknown | + + + | Race | Unknown | + + + | Ethnic Group | Other Race | + + + Author + + + | Author | [facility] | + + + | Organization | [facility] | + + + | Address | Unknown | + + + | Phone | Unavailable | + + + Care Team Providers + +------+ + | Care Hand Almond Blancher Name | Role | Phone | + [...] | | | | | [address] [place], | | | | | | [place] [address] | | | +--------+ + + + [...] | [facility] - | [address], | [place] [address] | | | IMMUNOGENETICS/TRANS | [address] [...] [facility] - | [address] | [place] [address] | | | IMMUNOGENETICS/TRANS | [address] [...] [facility] - | [address] | [place] [address] | | | IMMUNOGENETICS/TRANS | [address] | | | | [facility] LAB[facility]ORY | | | | + + + + + documented in this encounter Visit Diagnoses Not on filedocumented in this encounter"
--- OUTSIDE RECORDS SUMMARY | ~2019-01-14 | XMS | Encounter Summary ---
Demographics + + + | Address | [address] | | | [place] [address] | + + + | Home Phone [...] Author | [facility] | + + + | Organization | [facility] | + + + | Address | Unknown | + + + | Phone | Unavailable | + + + Care Team Providers + +------+ + | Care Iron Worker Foreman Name | Role | Phone | + [...] | | | | | [address] [place], | | | | | | [place] [address] | | | +--------+ + + + [...] FLOW HLA AB PRA | Routin | 08/15/2018 | | | | SCREEN I/II | e | 12:00 AM | | | | | | PDT | | | + +--------+ + + + documented in this encounter Results LIT FLOW HLA AB PRA SCREEN I/II (08/15/2018 12:00 AM PDT) + + | Specimen | + + | Blood - Blood | | (substance) | + + + + + + + | Performing | Address | City/State/Zipcode | Phone Number | | Organization | | | | + + + + + | [facility] - | [address] | [place] [address] | | | IMMUNOGENETICS/TRANS | [address] | | | | [facility] | | | | + + + + + documented in this encounter Visit Diagnoses Not on filedocumented in this encounter"
--- OUTSIDE RECORDS SUMMARY | ~2019-01-14 | XMS | Encounter Summary ---
Demographics + + + | Address | [address] | | | [place] [address] | + + + | Home Phone [...] Author + + + | Author | [facility] | + + + | Organization | [facility] | + + + | Address | Unknown | + + + | Phone | Unavailable | + + + Care Team Providers + +------+ + | Care Cheesemaking Laborer Name | Role | Phone | + [...] | | | | | [address] [place], | | | | | | [place] [address] | | | +--------+ + + + [...] + + | [facility] - | [address] | [place] [address] | | | IMMUNOGENETICS/TRANS | [address] [...] [facility] - | [address] | [place] [address] | | | IMMUNOGENETICS/TRANS | [address] [...] + + + | [facility] - | [address] | [place] [address] | | | IMMUNOGENETICS/TRANS | [address] | | | | [facility] | | | | + + + + + documented in this encounter Visit Diagnoses Not on filedocumented in this encounter"
--- OUTSIDE RECORDS SUMMARY | ~2019-01-14 | XMS | Encounter Summary ---
Demographics + + + | Address | [address] | | | [place] [address] | + + + | Home Phone [...] Author + + + | Author | [facility] | + + + | Organization | [facility] | + + + | Address | Unknown | + + + | Phone | Unavailable | + + + Care Team Providers + +------+ + | Care Clothing Room Supervisor Name | Role | Phone | [...] | | | | | [address] [place], | | | | | | [place] [address] | | | +--------+ + + + [...] [facility] - | [address] | [place] [address] | | | IMMUNOGENETICS/TRANS | [address] [...] + + | [facility] - | [address] | [place] [address] | | | IMMUNOGENETICS/TRANS | [address] | | | | [facility] | | | | + + + + + documented in this encounter Visit Diagnoses Not on filedocumented in this encounter"
--- OUTSIDE RECORDS SUMMARY | ~2019-01-14 | XMS | Encounter Summary ---
Demographics + + + | Address | [address] | | | [place] [address] | + + + | Home Phone | | + + + | Preferred Language | Unknown | + + + | Marital Status | Single | + + + | Zoroastrian Affiliation | Unknown | + + + | Race | Unknown | + + + | Ethnic Group | Other Race | + + + Author + + + | Author | [facility] | + + + | Organization | [facility] | + + + | Address | Unknown | + + + | Phone | Unavailable | + + + Care Team Providers + +------+ + | Care Fishing Captain Name | Role | Phone | + [...] | | | | | [address] [place], | | | | | | [place] [address] | | | +--------+ + + + [...] | [facility] - | [address] | [place] [address] | | | IMMUNOGENETICS/TRANS | [address] | | | | [facility] LAB[facility] | | | | + + + + + documented in this encounter Visit Diagnoses Not on filedocumented in this encounter"
--- OUTSIDE RECORDS SUMMARY | ~2019-01-14 | XMS | Encounter Summary ---
Demographics + + + | Address | [address] | | | [place] [address] | + + + | Home Phone | | + + + | Preferred Language | Unknown | + + + | Marital Status | Single | + + + | Caodaism Affiliation | Unknown | + + + | Race | Unknown | + + + | Ethnic Group | Other Race | + + + Author + + + | Author | [facility] | + + + | Organization | [facility] | + + + | Address | Unknown | + + + | Phone | Unavailable | + + + Care Team Providers + +------+ + | Care Brush Maker Name | Role | Phone | + +------+ + PCP | Unavailable | + +------+ + Encounter Details +--------+ + + + + | Date | Type | Department | Care Team | Description | +--------+ + + + + | 08/21/ | Lab | LAB IMMUNOGENETIC | | | | 2016 | Requisition | [facility] LAB | | | | | | [address] | | | | | | [address] [place], | | | | | | [place] [address] | | | +--------+ + + + [...] Not on filedocumented as of this encounter Visit Diagnoses Not on filedocumented in this encounter"
--- OUTSIDE RECORDS SUMMARY | ~2019-01-14 | XMS | Encounter Summary ---
Demographics + + + | Address | [address] | | | [place] [address] | + + + | Home Phone | | + + + | Preferred Language | Unknown | + + + | Marital Status | Single | + + + | Amish Affiliation | Unknown | + + + [...] Team Providers + +------+ + | Care Load Dropper Name | Role | Phone | + +------+ + PCP | Unavailable | + +------+ + Encounter Details +--------+ + + + + | Date | Type | Department | Care Team | Description | +--------+ + + + + | 02/15/ | Lab | LAB IMMUNOGENETIC | | | | 2016 | Requisition | [facility] LAB | | | | | | [address] | | | | | | [address] [place], | | | | | | [place] [address] | | | +--------+ + + + [...] FLOW HLA AB PRA | Routin | 02/15/2017 | | | | SCREEN I/II | e | 4:09 PM | | | | | | PST | | | + +--------+ + + + documented in this encounter Results LIT FLOW HLA AB PRA SCREEN I/II (02/15/2017 4:09 PM PST) + + | Specimen | + + | Blood - Blood | | (substance) | + + + + + + + | Performing | Address | City/State/Zipcode | Phone Number | | Organization | | | | + + + + + | [facility] - | [address] | [place] [address] | | | IMMUNOGENETICS/TRANS | [address] | | | | [facility] LAB[facility] | | | | + + + + + documented in this encounter Visit Diagnoses Not on filedocumented in this encounter"
--- OUTSIDE RECORDS SUMMARY | ~2019-01-14 | XMS | Encounter Summary ---
Demographics + + + | Address | [address] | | | [place] [address] | + + + | Home Phone [...] Team Providers + +------+ + | Care English Language Learner Teacher Name | Role | Phone | + +------+ + PCP | Unavailable | + +------+ + Encounter Details +--------+ + + + + | Date | Type | Department | Care Team | Description | +--------+ + + + + | 07/19/ | Lab | LAB IMMUNOGENETIC | | | | 2019 | Requisition | AND [facility] LAB | | | | | | [address] | | | | | | [address] [place], | | | | | | [place] [address] | | | +--------+ + + + [...] FLOW HLA AB PRA | Routin | 07/19/2018 | | | | SCREEN I/II | e | 11:04 AM | | | | | | PDT | | | + +--------+ + + + documented in this encounter Results LIT FLOW HLA AB PRA SCREEN I/II (07/19/2018 11:04 AM PDT) + + | Specimen | + + | Blood - Blood | | (substance) | + + + + + + + | Performing | Address | City/State/Zipcode | Phone Number | | Organization | | | | + + + + + | [facility] - | [address] | [place] [address] | | | IMMUNOGENETICS/TRANS | [address] | | | | PLANT LAB[facility]ATORY | | | | + + + + + documented in this encounter Visit Diagnoses Not on filedocumented in this encounter"
--- OUTSIDE RECORDS SUMMARY | ~2019-01-14 | XMS | Encounter Summary ---
Demographics + + + | Address | [address] | | | [place] [address] | + + + | Home Phone [...] Team Providers + +------+ + | Care Medical Assistant Internal Medicine Name | Role | Phone | + [...] | | | | | [address] [place], | | | | | | [place] [address] | | | +--------+ + + + [...] | [facility] - | [address] | [place] [address] | | | IMMUNOGENETICS/TRANS | [address] | | | | [facility] LAB[facility]ORY | | | | + + + + + documented in this encounter Visit Diagnoses Not on filedocumented in this encounter"
--- OUTSIDE RECORDS SUMMARY | ~2019-01-14 | XMS | Encounter Summary ---
Demographics + + + | Address | [address] | | | [place] [address] | + + + | Home Phone | | + + + | Preferred Language | Unknown | + + + | Marital Status | Single | + + + | Temple Affiliation | Unknown | + + + | Race | Unknown | + + + | Ethnic Group | Other Race | + + + Author + + + | Organization | Unknown | + + + | Address | Unknown | + + + | Phone | Unavailable | + + + Care Team Providers + +------+ + | Care Glass Inserter Name | Role | Phone | + +------+ + PCP | Unavailable | + +------+ + Encounter Details +--------+ + + + + | Date | Type | Department | Care Team | Description | +--------+ + + + + | 08/04/ | Results | | Other, Faculty | | | 2000 | Only | | [phone] | | +--------+ + + + + [...] | | | | | [facility]) | [address] [address] | | | | | | [...] Jr., | | | | | | EdgardoPathologistElectroni | | | | | | parker Signed | | | | | | 08/11/2000Comment: | | | | | | SOURCE OF SPECIMEN: | | | | | | FIRST TISSUE LEVEL IV | | | | | | [address] | | | | + + + [...] + + | [facility] | [address] | [place] [address] | | | DERMATOPATHOLOGY | [address] | | | + + + + + documented in this encounter Visit Diagnoses Not on filedocumented in this encounter"
--- OUTSIDE RECORDS SUMMARY | ~2019-01-14 | XMS | Encounter Summary ---
Demographics + + + | Address | [address] | | | [place] [address] | + + + | Home Phone | | + + + | Preferred Language | Unknown | + + + | Marital Status | Single | + + + | Anabaptism Affiliation | Unknown | + + + | Race | Unknown | + + + | Ethnic Group | Other Race | + + + Author + + + | Author | [facility] | + + + | Organization | [facility] | + + + | Address | Unknown | + + + | Phone | Unavailable | + + + Care Team Providers + +------+ + | Care Mat Worker Name | Role | Phone | [...] | | | | | | [place] [address] | | | +--------+ + + + [...] [facility] - | [address] | [place] [address] | | | IMMUNOGENETICS/TRANS | [address] | | | | [facility] LAB[facility]ATORY | | | | + + + + + documented in this encounter Visit Diagnoses Not on filedocumented in this encounter"
--- OUTSIDE RECORDS SUMMARY | ~2019-01-14 | XMS | Encounter Summary ---
Demographics + + + | Address | [address] | | | [place] [address] | + + + | Home Phone [...] Author + + + | Author | [facility] | + + + | Organization | [facility] | + + + | Address | Unknown | + + + | Phone | Unavailable | + + + Care Team Providers + +------+ + | Care Vice President Supply Chain Name | Role | Phone | + [...] | | | | | [address] [place], | | | | | | [place] [address] | | | +--------+ + + + [...] | [facility] - | [address] | [place] [address] | | | IMMUNOGENETICS/TRANS | [address] | | | | [facility] LAB[facility]ATORY | | | | + + + + + documented in this encounter Visit Diagnoses Not on filedocumented in this encounter"
--- OUTSIDE RECORDS SUMMARY | ~2019-01-14 | XMS | Clinical Summary ---
Demographics + + + | Address | [address] | | | [place] [address] | + + + | Home Phone | | + + + | Preferred Language | Unknown | + + + | Marital Status | | + + + | Baptism Affiliation | 1077 | + + + | Race | Unknown | + + + | Ethnic Group | Unknown | + + + Author + + + | Author | [facility] [employer] (Historical as of | | | 10-29-18) | + + + | Organization | [facility] [employer] (Historical as of | | | 10-29-18) [...] Providers + +------+ + | Care Manager Universal Name | Role | Phone | + +------+ + | Arron Buckner MD | PP | Unavailable | + +------+ + Allergies + + + + + + | Active Allergy | Reactions | Severity | Noted | Comments | | | | | Date | | + + + + + + | Amoxicillin | Rash, Nausea Only | Medium | 05/08/19 | | | | | | 15 | | + + + + + + | Codeine | Headache, Nausea and | Low | 05/08/19 | Headache | | | Vomiting | | 15 | | + + + + + + | Filgrastim | Other (See | Medium | 05/23/19 | DIARRHEA | | | Comments), Nausea | | 14 | | | | and Vomiting | | | | + + + + + + | Hydromorphone | Nausea and Vomiting, | Low | 05/08/19 | DIZZINESS | | | Nausea Only | | 15 | | + + + + + + | Nsaids | Other (See Comments) | Medium | 05/03/19 | Kidney transplant | | | | | 14 | | + + + + + + Current Medications + + +--------+---------+------+------+-------+ | Prescription | Sig. | Disp. | Refills | Star | End | Statu | | | | | | t | Date | s | | | | | | Date | | | + + +--------+---------+------+------+-------+ | glipiZIDE | Take 10 mg by mouth | | | | | Activ | | (GLUCOTROL) 10 MG | 2 (two) times daily | | | | | e | | tablet | before meals. | | | | | | + + +--------+---------+------+------+-------+ | pantoprazole | Take 40 mg by mouth | | | | | Activ | | (PROTONIX) 20 MG | every morning before | | | | | e | | tablet | breakfast. | | | | | | + + +--------+---------+------+------+-------+ | VITAMIN D, | Take 1,000 Units by | | | | | Activ | | CHOLECALCIFEROL, PO | mouth daily. | | | | | e | + + +--------+---------+------+------+-------+ | gabapentin | Take 300 mg by mouth | | | | | Activ | | (NEURONTIN) 300 MG | 3 (three) times | | | | | e | | capsuleIndications: | daily. Indications: | | | | | | | Neuropathic Pain | Neuropathic Pain | | | | | | + + +--------+---------+------+------+-------+ | MICROLET LANCETS | Microlet Lancet | | | | | Activ | | MISC | | | | | | e | + + +--------+---------+------+------+-------+ | folic acid | folic acid 1 mg | | | | | Activ | | (FOLVITE) 1 MG | tablet Take 1 tablet | | | | | e | | tablet | every day by oral | | | | | | | | route. | | | | | | + + +--------+---------+------+------+-------+ | sevelamer | Take 3 tablets by | 810 | 3 | 03/2 | | Activ | | (RENVELA) 800 MG | mouth 3 (three) | tablet | | 8/20 | | e | | tabletIndications: | times daily with | | | 19 | | | | Hyperphosphatemia | meals. | | | | | | + + +--------+---------+------+------+-------+ | hydrALAZINE | Take 1 tablet by | 270 | 3 | 08/13 | 08/13 | Activ | | (APRESOLINE) 25 MG | mouth 3 (three) | tablet | | 8/20 | 7/20 | e | | tablet | times daily. | | | 19 | 20 | | + + +--------+---------+------+------+-------+ | losartan (COZAAR) | Take 1 tablet by | 90 | 3 | / | 08/13 | Activ | | 100 MG tablet | mouth daily. | tablet | | 8/20 | 7/20 | e | | | | | | 19 | 20 | | + + +--------+---------+------+------+-------+ | amLODIPine | Take 1 tablet by | 90 | 3 | 08/13 | 08/13 | Activ | | (NORVASC) 10 MG | mouth daily. | tablet | | 11/01 | 10/01 | e | | tablet | | | | | 20 | | + + +--------+---------+------+------+-------+ Active Problems + + + | Problem | Noted Date | + + + | Torn earlobe | 10/11/2015 | + + + | Essential hypertension | 02/05/2015 | + + + + + | Overview: Overview: Overview: ICD-10 Record updateLast | | Assessment & Plan: Well-controlled on current therapy no change | | needed she is tolerating well | | | |Last Assessment & Plan: | |Well-controlled on current therapy no change needed she is tolerating well | + + + + + | History of kidney transplant | 02/05/2015 | + + + + + | Overview: Overview: | | Overview: | | (V67.0) Dec donor | | | | [phone] (rejections) | | [phone] | + + + + + | End stage renal failure on dialysis (HCC) | 05/08/2014 | + + + + [...] + + | Overview: Overview: | | ICD-10 Record update | + + + + + | Basal cell carcinoma of skin | 01/12/2013 | + + + + + | Overview: Overview: | | Overview: | | ICD-10 Record update | + + + + + | 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 | + + + + + | 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 | + + + + + | Esophageal reflux | 01/12/2013 | + + + | Gout | 01/12/2013 | + + + + + | Overview: Overview: | | ICD-10 Record update | + + Encounters +--------+ + + + + | Date | Type | Specialty | Care Team | Description | +--------+ + + + + | 10/28/ | Documentati | | Erica Younger | Care Coordination | | 2019 | on Only | | ARYAN Walker | (Kardex October 2018, | | | | | | [place] ) | +--------+ + + + + | 10/27/ | Office | | Chantelle Aly | End stage renal | | 2018 | Visit | | MD Denise | failure on dialysis | | | | | | (HCC) (Primary Dx) | +--------+ + + + + | 10/19/ | Documentati | | Chantelle Aly | Other (September | 2018 | on Only | | MD Denise | 2019-Pradeepita Provider | | | | | | Dialysis Rounding | | | | | | Note) | +--------+ + + + + from Last 3 Months Immunizations + + + + | Name | Dates Previously Given | Next Due | + + + + | Hepatitis B Adult | 06/01/2014, 02/05/2014, 01/01/2014, | | | | 12/07/2013 | | + + + + | Influenza, PF | 12/13/2014 | | | Trivalent | | | + + + + | Influenza, Trivalent | 12/13/2016, 01/12/2014, 01/12/2014 | | | W/Preservative | | | + + + + | Pneumococcal | 12/13/2014 | | | Conjugate 13-valent | | | + + + + | Pneumococcal | 12/04/2013 | | | Polysaccharide | | | | 23-valent | | | + + + + | Tdap | 03/05/2015, 06/29/2013 | | + + + + Family History + + +------+ + | Medical History | Relation | Name | Comments | + + +------+ + | Kidney disease | Mother | | | + + +------+ + | Malig hypertherm | Neg Hx | | | + + +------+ + + +------+ + + | Relation | Name | Status | Comments | + +------+ + + | Father | | | | + +------+ + + | Mother | | | | + +------+ + + Social History + +-------+ +--------+------+ [...] on file | | + + + Last Filed Vital Signs + + + + | Vital Sign | Reading | Time Taken | + + + + | Blood Pressure | 151/73 | 10/27/2018 1:56 PM PDT | + + + + | Pulse | 63 | 10/27/2018 1:56 PM PDT | + + + + | Temperature | 36.3 C (97.4 F) | 05/31/2018 3:25 PM PDT | + + + + | Respiratory Rate | 16 | 05/31/2018 3:45 PM PDT | + + + + [...] PM PDT | + + + + Plan of Treatment +--------+---------+ + + + | Date | Type | Specialty | Care Team | Description | +--------+---------+ + + + | 02/02/ | Office | | Chantelle Aly | | | 2018 | Visit | | MD Kate Walker N | | | | | | [address] [address] | | | | | | [place] | | | | | | [address] | | | | | | [phone] | | | | | | | | +--------+---------+ + + + | 03/02/ | Office | | Chantelle Aly | | | 2018 | Visit | | MD Kate Walker N | | | | | | [place] | | | | | | [place] | | | | | | [address] | | | | | | [phone] | | | | | | | | +--------+---------+ + + + + + + + + | Health Maintenance | Due Date | Last Done | Comments | + + + + + | Cervical Cancer | | | | | Screening (Pap) | 7 | | | + + + + + | Breast Cancer | | | | | Screening | 7 | | | | (Mammogram) | | | | + + + + + | Colon Cancer | | | | | Screening | 7 | | | | (Colonoscopy) | | | | + + + + + | Vaccine: Zoster (1 | | | | | of 2) | 7 | | | + + + + + | Vaccine: Influenza | | 12/13/2016, 12/13/2014, | | | (#1) | 9 | 01/12/2014 | | + + + + + | Vaccine: | | 12/13/2014, 12/04/2013 | | | Pneumococcal 19-64 | 9 | | | | Highest Risk (3 of 3 | | | | | - PPSV23) | | | | + + + + + | Vaccine: | | 03/05/2015, 06/29/2013 | | | Dtap/Tdap/Td (3 - | 5 | | | | Td) | | | | + + + + + Results Not on filefrom Last 3 Months Insurance + +--------+ +------+-------+ + | Payer | Benefi | Subscriber | Type | Phone | Address | | | t Plan | ID | | | | | | / | | | | | | | Group | | | | | + +--------+ +------+-------+ + | MEDICARE | MEDICA | [id number] | | | [address] | | | RE | | | | [place] [address] | | | IP-OP | | | | | + +--------+ +------+-------+ + | PREMERA | PREMER | [id number] | | | [address] [address] | | | A BLUE | 0 | | | [place], [place] | | | CARD | | | | [phone] | + +--------+ +------+-------+ + + +--------+ +--------+ + + | Guarantor Name | Accoun | Relation to | Date | Phone | Billing Address | | | t Type | Patient | of | | | | | | | | | | + +--------+ +--------+ + + | MARIE ABDI | Person | Self [birth year] | Home: | [address] | | [place] | al/Fam | | 1965 | [phone] | [place] | | | [place]ina | | | [phone] | [phone] | + +--------+ +--------+ + + | MARIE ABDI | Plasti | Self | [birth year] | Home: | [address] | | | cs | | 1965 | [phone] | [place] | | | | | | [phone] | [phone] | + +--------+ +--------+ + +
--- OUTSIDE RECORDS SUMMARY | ~2019-01-14 | XMS | Encounter Summary ---
Demographics + + + | Address | [address] | | | [place] [address] | + + + | Home Phone | | + + + | Preferred Language | Unknown | + + + | Marital Status | Single | + + + | Oriental Orthodox Affiliation | Unknown | + + [...] Team Providers + +------+ + | Care Low Pressure Kettle Operator Name | Role | Phone | [...] | | | | | [address] [place], | | | | | | [place] [address] | | | +--------+ + + + [...] | [facility] - | [address] | [place] [address] | | | IMMUNOGENETICS/TRANS | [address] | | | | [facility]ANT LAB[facility]ATORY | | | | + + + + + documented in this encounter Visit Diagnoses Not on filedocumented in this encounter"
--- OUTSIDE RECORDS SUMMARY | ~2019-01-14 | XMS | Encounter Summary ---
Demographics + + + | Address | [address] | | | [place] [address] | + + + | Home Phone | | + + + | Preferred Language | Unknown | + + + | Marital Status | Single | + + + | Protestant Affiliation | Unknown | + + + [...] Team Providers + +------+ + | Care Dog Licenser Name | Role | Phone | + [...] | | | | | [address] [place], | | | | | | [place] [address] | | | +--------+ + + + [...] | [facility] - | [address] | [place] [address] | | | IMMUNOGENETICS/TRANS | [address] | | | | [facility]ANT LAB[facility]ATORY | | | | + + + + + documented in this encounter Visit Diagnoses Not on filedocumented in this encounter"
--- OUTSIDE RECORDS SUMMARY | ~2019-01-14 | XMS | Encounter Summary ---
Demographics + + + | Address | [address] | | | [place] [address] | + + + | Home Phone [...] + + + | Author | [facility] | + + + | Organization | [facility] | + + + | Address | Unknown | + + + | Phone | Unavailable | + + + Care Team Providers + +------+ + | Care Water Filtration Technician Name | Role | Phone | [...] | | | | | [address] [place], | | | | | | [place] [address] | | | +--------+ + + + [...] | [facility] - | [address] | [place] [address] | | | IMMUNOGENETICS/TRANS | [address] | | | | [facility] LAB[facility]ATORY | | | | + + + + + documented in this encounter Visit Diagnoses Not on filedocumented in this encounter"
--- OUTSIDE RECORDS SUMMARY | ~2019-01-14 | XMS | Encounter Summary ---
Demographics + + + | Address | [address] | | | [place] [address] | + + + | Home Phone [...] Team Providers + +------+ + | Care Certified Credit Counselor Name | Role | Phone | + +------+ + PCP | Unavailable | + +------+ + Encounter Details +--------+ + + + + | Date | Type | Department | Care Team | Description | +--------+ + + + + | 03/27/ | Lab | LAB IMMUNOGENETIC | | | | 2016 | Requisition | AND TRANSPLANT LAB | | | | | | [address] | | | | | | [address] [place], | | | | | | [place] [address] | | | +--------+ + + + [...] FLOW HLA AB PRA | Routin | 03/27/2016 | | | | SCREEN I/II | e | 10:43 AM | | | | | | PST | | | + +--------+ + + + documented in this encounter Results LIT FLOW HLA AB PRA SCREEN I/II (03/27/2016 10:43 AM PST) + + | Specimen | + + | Blood - Blood | | (substance) | + + + + + + + | Performing | Address | City/State/Zipcode | Phone Number | | Organization | | | | + + + + + | [facility] - | [address] | [place] [address] | | | IMMUNOGENETICS/TRANS | [address] | | | | PLANT LAB[facility]ATORY | | | | + + + + + documented in this encounter Visit Diagnoses Not on filedocumented in this encounter"
--- OUTSIDE RECORDS SUMMARY | ~2019-01-14 | XMS | Encounter Summary ---
Demographics + + + | Address | [address] | | | [place] [address] | + + + | Home Phone [...] Team Providers + +------+ + | Care Offset Plate Maker Name | Role | Phone | [...] | | | | | [address] [place], | | | | | | [place] [address] | | | +--------+ + + + [...] FLOW HLA AB PRA | Routin | 04/15/2018 | | | | SCREEN I/II | e | 12:00 AM | | | | | | PST | | | + +--------+ + + + documented in this encounter Results LIT FLOW HLA AB PRA SCREEN I/II (04/15/2018 12:00 AM PST) + + | Specimen | + + | Blood - Blood | | (substance) | + + + + + + + | Performing | Address | City/State/Zipcode | Phone Number | | Organization | | | | + + + + + | [facility] - | [address] | [place] [address] | | | IMMUNOGENETICS/TRANS | [address] | | | | [facility]ANT LAB[facility]ATORY | | | | + + + + + documented in this encounter Visit Diagnoses Not on filedocumented in this encounter"
--- OUTSIDE RECORDS SUMMARY | ~2019-01-14 | XMS | Encounter Summary ---
Demographics + + + | Address | [address] | | | [place] [address] | + + + | Home Phone [...] Team Providers + +------+ + | Care Jamb Cutter Name | Role | Phone | [...] | | | | | [address] [place], | | | | | | [place] [address] | | | +--------+ + + + [...] FLOW HLA AB PRA | Routin | 01/20/2017 | | | | SCREEN I/II | e | 7:25 AM | | | | | | PST | | | + +--------+ + + + documented in this encounter Results LIT FLOW HLA AB PRA SCREEN I/II (01/20/2017 7:25 AM PST) + + | Specimen | + + | Blood - Blood | | (substance) | + + + + + + + | Performing | Address | City/State/Zipcode | Phone Number | | Organization | | | | + + + + + | [facility] - | [address] | [place] [address] | | | IMMUNOGENETICS/TRANS | [address] | | | | PLANT LAB[facility]ATORY | | | | + + + + + documented in this encounter Visit Diagnoses Not on filedocumented in this encounter"
--- OUTSIDE RECORDS SUMMARY | ~2019-01-14 | XMS | Encounter Summary ---
Demographics + + + | Address | [address] | | | [place] [address] | + + + | Home Phone [...] Author + + + | Author | [facility] | + + + | Organization | [facility] | + + + | Address | Unknown | + + + | Phone | Unavailable | + + + Care Team Providers + +------+ + | Care Information Assistant Name | Role | Phone | [...] | | | | | | [place] [address] | | | +--------+ + + + [...] | [facility] - | [address] | [place] [address] | | | IMMUNOGENETICS/TRANS | [address] | | | | PLANT LAB[facility]ATORY | | | | + + + + + documented in this encounter Visit Diagnoses Not on filedocumented in this encounter"
--- OUTSIDE RECORDS SUMMARY | ~2019-01-14 | XMS | Encounter Summary ---
Demographics + + + | Address | [address] | | | [place] [address] | + + + | Home Phone [...] Team Providers + +------+ + | Care Plant Maintenance Mechanic Name | Role | Phone | + [...] | | | | | [address] [place], | | | | | | [place] [address] | | | +--------+ + + + [...] | [facility] - | [address] | [place] [address] | | | IMMUNOGENETICS/TRANS | [address] | | | | PLANT LABORATORY | | | | + + + + + documented in this encounter Visit Diagnoses Not on filedocumented in this encounter"
--- OUTSIDE RECORDS SUMMARY | ~2019-01-14 | XMS | Encounter Summary ---
Demographics + + + | Address | [address] | | | [place] [address] | + + + | Home Phone [...] Team Providers + +------+ + | Care Educator Senior Clinical Name | Role | Phone | + [...] | | | | | [address] [place], | | | | | | [place] [address] | | | +--------+ + + + [...] FLOW HLA AB PRA | Routin | 05/13/2018 | | | | SCREEN I/II | e | 12:00 AM | | | | | | PST | | | + +--------+ + + + documented in this encounter Results LIT FLOW HLA AB PRA SCREEN I/II (05/13/2018 12:00 AM PST) + + | Specimen | + + | Blood - Blood | | (substance) | + + + + + + + | Performing | Address | City/State/Zipcode | Phone Number | | Organization | | | | + + + + + | [facility] - | [address] | [place] [address] | | | IMMUNOGENETICS/TRANS | [address] | | | | PLANT LABORATORY | | | | + + + + + documented in this encounter Visit Diagnoses Not on filedocumented in this encounter"
--- OUTSIDE RECORDS SUMMARY | ~2019-01-14 | XMS | Encounter Summary ---
Demographics + + + | Address | [address] | | | [place] [address] | + + + | Home Phone | | + + + | Preferred Language | Unknown | + + + | Marital Status | | + + + | Denominational Affiliation | 1077 | + + + | Race | Unknown | + + + | Ethnic Group | Unknown | + + + Author + + + | Author | [facility] (Historical as of | | | 10-29-18) | + + + | Organization | [facility] (Historical as of | | | 10-29-18) [...] Providers + +------+ + | Care Supervisor Inspection And Testing Name | Role | Phone | + [...] | [address] | [facility] | Dialysis Rounding | | | | [place] [address] | [place], [place] | Note) | | | | [phone] | [address] | | | | | | [phone] | | | | | | | [...] [place] | | | | | | [address] | | | | | | [phone] | | | | | | | | +--------+---------+ + + + | 03/02/ | Office | Nephrology | Chantelle Aly | | | 2018 | Visit | | MD Kate Walker N | | | | | | [facility] | | | | | | [place] | | | | | | [address] | | | | | | [phone] | | | | | | | | +--------+---------+ + + + as of this encounter Visit Diagnoses Not on filein this encounter"
--- OUTSIDE RECORDS SUMMARY | ~2019-01-14 | XMS | Encounter Summary ---
Demographics + + + | Address | [address] | | | [place] [address] | + + + | Home Phone [...] Team Providers + +------+ + | Care Senior Net Engineer Name | Role | Phone | [...] | | | | | [address] [place], | | | | | | [place] [address] | | | +--------+ + + + [...] | [facility] - | [address] | [place] [address] | | | IMMUNOGENETICS/TRANS | [address] | | | | PLANT LABORATORY | | | | + + + + + documented in this encounter Visit Diagnoses Not on filedocumented in this encounter"
--- OUTSIDE RECORDS SUMMARY | ~2019-01-14 | XMS | Encounter Summary ---
Demographics + + + | Address | [address] | | | [place] [address] | + + + | Home Phone [...] Team Providers + +------+ + | Care Graphic Arts Technician Name | Role | Phone | [...] | | | | | [address] [place], | | | | | | [place] [address] | | | +--------+ + + + [...] | [facility] - | [address] | [place] [address] | | | IMMUNOGENETICS/TRANS | [address] | | | | PLANT LABORATORY | | | | + + + + + documented in this encounter Visit Diagnoses Not on filedocumented in this encounter"
--- OUTSIDE RECORDS SUMMARY | ~2019-01-14 | XMS | Encounter Summary ---
Demographics + + + | Address | [address] | | | [place] [address] | + + + | Home Phone [...] Author + + + | Author | [facility] | + + + | Organization | [facility] | + + + | Address | Unknown | + + + | Phone | Unavailable | + + + Care Team Providers + +------+ + | Care Public Health Aide Name | Role | Phone | + [...] | | | | | [address] [place], | | | | | | [place] [address] | | | +--------+ + + + [...] | [facility] - | [address] | [place] [address] | | | IMMUNOGENETICS/TRANS | [address] | | | | PLANT LABORATORY | | | | + + + + + documented in this encounter Visit Diagnoses Not on filedocumented in this encounter"
--- OUTSIDE RECORDS SUMMARY | ~2019-01-14 | XMS | Clinical Summary ---
Demographics + + + | Address | [address] | | | [place] [address] | + + + | Home Phone | | + + + | Preferred Language | Unknown | + + + | Marital Status | Single | + + + | Zoroastrianism Affiliation | Unknown | + + + | Race | Unknown | + + + | Ethnic Group | Other Race | + + + Author + + + | Author | [facility] | + + + | Organization | [facility] | + + + | Address | Unknown | + + + | Phone | Unavailable | + + + Care Team Providers + +------+ + | Care Court Officer Name | Role | Phone | + +------+ + PCP | Unavailable | + +------+ + Source Comments [facility] is fully live on both [facility] and [facility] Allergies Not on File Medications Not on file Active Problems Not on file Encounters +--------+ + + + + | Date | Type | Specialty | Care Team | Description | +--------+ + + + + | 12/21/ | Lab | | | | | 2018 | Requisition | | | | +--------+ + + + + | 11/24/ | Lab | | | | | 2018 | Requisition | | | | +--------+ + + + + | 10/18/ | Lab | | | | | 2018 | Requisition | | | | +--------+ + + + + from Last 3 Months Social History + +-------+ +--------+------+ | Tobacco [...] | + + Last Filed Vital Signs Not on file Plan of Treatment + + + + + | Health Maintenance | Due Date | Last Done | Comments | + + + + + | Influenza (Flu) | | | | | vaccination (#1) | 9 | | | + + + + + | Pneumococcal | Aged Out | | No longer eligible | | vaccination | | | based on patient's | | | | | age to complete this | | | | | topic | + + + + + Procedures + +--------+ + + + | [...] section. | + +--------+ + + + from Last 3 Months Results LIT FLOW HLA AB PRA SCREEN I/II (12/14/2018 12:00 AM PDT)Only the most recent of 2 result s within the time period is included. + + | Specimen | + + | Blood - Blood | | (substance) | + + + + + + + | Performing | Address | City/State/Zipcode | Phone Number | | Organization | | | | + + + + + | [facility] - | [address], | [place] [address] | | | IMMUNOGENETICS/TRANS | [address] | | | | PLANT LABORATORY | | | | + + + + + LIT FLOW HLA II AB AG ID, BLOOD (11/16/2018 12:00 AM PDT)Only the most recent of 2 results within the time period is included. + + | Specimen | + + | Blood - Blood | | (substance) | + + + + + + + | Performing | Address | City/State/Zipcode | Phone Number | | Organization | | | | + + + + + | [facility] - | [address] | [place] [address] | | | IMMUNOGENETICS/TRANS | [address] | | | | PLANT LABORATORY | | | | + + + + + LIT FLOW HLA I AB AG ID, BLOOD (11/16/2018 12:00 AM PDT)Only the most recent of 2 results w ithin the time period is included. + + + + + + | [...] [facility] - | [address] | [place] [address] | | | IMMUNOGENETICS/TRANS | [address] | | | | PLANT LABORATORY | | | | + + + + + from Last 3 Months Insurance + +--------+ +--------+ + +--------+ | Payer | Benefi | Subscriber | Effect | Phone | Address | Type | | | t Plan | ID | kat | | | | | | / | | Dates | | | | | | Group | | | | | | + +--------+ +--------+ + +--------+ | BLUE CROSS BLUE | REGENC | xxxxxxxxxxx | 06/17/19 | [phone] | [address] | PPO | | SHIELD | E BCBS | x | 18-Pre | 8 | [address] | | | | | | sent | | [place], | | | | | | | | [place] | | | | | | | | [address] | | + +--------+ +--------+ + +--------+ | MEDICARE | MEDICA | xxxxxxxxxx | 09/12/18 | [phone] | [address] | Medica | | | RE A & | | 94-Pre | 1 | [address] | re | | | B | | sent | | [place] | | | | | | | | [phone] | | + +--------+ +--------+ + +--------+ + +--------+ +--------+ + + | Guarantor Name | Accoun | Relation to | Date | Phone | Billing Address | | | t Type | Patient | of | | | | | | | | | | + +--------+ +--------+ + + | Marie Abdi | Person | Self | [birth year] | [address] | | | al/Fam | | 1966 | [phone] | [place] | | | [place] | | | 1 ([place]) | [address] | + +--------+ +--------+ + +"
--- OUTSIDE RECORDS SUMMARY | ~2019-01-14 | XMS | Encounter Summary ---
Demographics + + + | Address | [address] | | | [place] [address] | + + + | Home Phone [...] Team Providers + +------+ + | Care Ferruler Name | Role | Phone | + [...] [id number] | | | | | | [facility] | | | | | | and Healing, | | | | | | Building [address], [address]th | | | | | | Floor [place], [place] | | | | | | [address] | | | | | | [phone] | | | +--------+ + + + [...] skin, | | | | | | [id number]. The surgical | | | | | [...] skin, | | | | | | [id number]. The surgical | | | | | [...] + + | [facility] | [address] | [place] [address] | | | DERMATOPATHOLOGY | [address] | | | + + + + + documented in this encounter Visit Diagnoses Not on filedocumented in this encounter
--- OUTSIDE RECORDS SUMMARY | ~2019-01-14 | XMS | Encounter Summary ---
Demographics + + + | Address | [address] | | | [place] [address] | + + + | Home Phone | | + + + | Preferred Language | Unknown | + + + | Marital Status | Single | + + + | Worship Affiliation | Unknown | + + + | Race | Unknown | + + + | Ethnic Group | Other Race | + + + Author + + + | Author | [facility] | + + + | Organization | [facility] | + + + | Address | Unknown | + + + | Phone | Unavailable | + + + Care Team Providers + +------+ + | Care Sheet Finisher Name | Role | Phone | + [...] | | | | | | [address] | | | | | | [address] [place], | | | | | | [place] [address] | | | +--------+ + + + [...] | [facility] - | [address] | [place] [address] | | | IMMUNOGENETICS/TRANS | [address] | | | | PLANT LABORATORY | | | | + + + + + documented in this encounter Visit Diagnoses Not on filedocumented in this encounter"
--- OUTSIDE RECORDS SUMMARY | ~2019-01-14 | XMS | Clinical Summary ---
Demographics + + + | Address | [address] | | | [place] [address] | + + + | Home Phone [...] Author + + + | Author | [facility] | + + + | Organization | [facility] | + + + | Address | Unknown | + + + | Phone | Unavailable | + + + Care Team Providers + +------+ + | Care Dental Amalgam Processor Name | Role | Phone | + +------+ + PCP | Unavailable | + +------+ + Source Comments NORMAN is fully live on both [facility] Amb[facility] and [facility] InPatient.[facility] Allergies Not on File Medications Not on [...] [facility] - | [address], | [place] [address] | | | IMMUNOGENETICS/TRANS | [address] [...] + + | [facility] - | [address] | [place] [address] | | | IMMUNOGENETICS/TRANS | [address] [...] [facility] - | [address] | [place] [address] | | | IMMUNOGENETICS/TRANS | [address] [...] | x | 18-Pre | 8 | [address] | | | | | | sent | | [place], | | | | | | | | [place] | | | | | | | | [address] | | + +--------+ +--------+ + +--------+ | MEDICARE | MEDICA | xxxxxxxxxx | 09/12/18 | [phone] | [address] | Medica | | | RE A & | | 94-Pre | 1 | [address] | re | | | B | | sent | | [place] | | | | | | | | [phone] | | + +--------+ +--------+ + +--------+ [...] | | [place] | | | 1 ([place]) | [address] | + +--------+ +--------+ + +"
--- OUTSIDE RECORDS SUMMARY | ~2019-01-14 | XMS | Encounter Summary ---
Demographics + + + | Address | [address] | | | [place] [address] | + + + | Home Phone [...] Team Providers + +------+ + | Care Prenatal Teacher Name | Role | Phone | [...] | | | | | [address] [place], | | | | | | [place] [address] | | | +--------+ + + + [...] | [facility] - | [address] | [place] [address] | | | IMMUNOGENETICS/TRANS | [address] | | | | PLANT LABORATORY | | | | + + + + + documented in this encounter Visit Diagnoses Not on filedocumented in this encounter"
--- OUTSIDE RECORDS SUMMARY | ~2019-01-14 | XMS | Encounter Summary ---
Demographics + + + | Address | [address] | | | [place] [address] | + + + | Home Phone [...] Team Providers + +------+ + | Care Ent Surgeon Name | Role | Phone | + [...] | | | | | [address] [place], | | | | | | [place] [address] | | | +--------+ + + + [...] | [facility] - | [address] | [place] [address] | | | IMMUNOGENETICS/TRANS | [address] | | | | PLANT LABORATORY | | | | + + + + + documented in this encounter Visit Diagnoses Not on filedocumented in this encounter"
--- OUTSIDE RECORDS SUMMARY | ~2019-01-14 | XMS | Encounter Summary ---
Demographics + + + | Address | [address] | | | [place] [address] | + + + | Home Phone [...] Author + + + | Author | [facility] | + + + | Organization | [facility] | + + + | Address | Unknown | + + + | Phone | Unavailable | + + + Care Team Providers + +------+ + | Care Medical Planner Name | Role | Phone | + +------+ + PCP | Unavailable | + +------+ + Encounter Details +--------+ + + + + | Date | Type | Department | Care Team | Description | +--------+ + + + + | 07/13/ | Hospital | Dermatopathology | | | | 2011 | Encounter | [address] | | | | | | Mailcode: CH16D | | | | | | [facility] | | | | | | and Healing, | | | | | | Building [address], [address]th | | | | | | Floor [place], [place] | | | | | | [address] | | | | | | [phone] | | | +--------+ + + + [...] + + | DERMATOPATHOLOGY(WET | Routin | 07/14/2011 | | Results for this | | MOUNT) | e | | | procedure are in the | | | | | | results section. | + +--------+ + + + documented in this encounter Results DERMATOPATHOLOGY(WET [place]) (07/14/2011) + + + + + + | Component | Value | Ref Range | Performed | Pathologist | | | | | At | Signature | + + + + + + | DERMATOPATH | SOURCE OF SPECIMEN:A Lt. | | [facility] | | | OLOGY(WET | anterior shoulder, | | DERMATOPATH | | | MNT) | shave biopsy | | OLOGY | | | | CLINICAL DESCRIPTION:3.5 | | | | | | x 4 mm dark brown | | | | | | asymmetrical macule; r/o | | | | | | atypical nevus. | | | | | | GROSS | | | | | | DESCRIPTION:Received in | | | | | | formalin is a specimen | | | | | | labeled Schuening, | | | | | | Marie:A: Specimen is | | | | | | labeled "Lt anterior | | | | | | shoulder" and consists | | | | | | of an oval shaveof white | | | | | | skin [id number]. The skin | | | | | | surface has a central | | | | | | brown macule,measuring | | | | | | 5x4mm. The surgical | | | | | | margin is inked green; | | | | | | the tissue isbisected, | | | | | | and entirely submitted | | | | | | in cassette A1. | | | | | | MICROSCOPIC | | | | | | DESCRIPTION:There is a | | | | | | small to moderately | | | | | | broad, symmetrical, and | | | | | | well | | | | | | circumscribedmelanocytic | | | | | | neoplasm characterized | | | | | | by small, round to oval | | | | | | nests and | | | | | | singlemelanocytes along | | | | | | the basal layer of thin, | | | | | | hyperplastic, and | | | | | | hyperpigmentedrete | | | | | | ridges. The | | | | | | melanocytic nuclei are | | | | | | small and uniform, and | | | | | | most of thecells have | | | | | | cytoplasm containing | | | | | | melanin, also extending | | | | | | throughout theepidermis | | | | | | including the stratum | | | | | | corneum and in | | | | | | melanophages in the | | | | | | fibroticpapillary | | | | | | dermis. | | | | | | DIAGNOSIS:MELANOCYTIC | | | | | | NEVUS, JUNCTIONAL TYPE. | | | | | | NOTE: The left | | | | | | anterior shoulder nevus | | | | | | is narrowly excised in | | | | | | the shavespecimen in | | | | | | these sections. | | | | | | CRW:emr07/16/11 My | | | | | | electronic signature | | | | | [...] Jr., | | | | | | | | | | | | MIsabelPathologistElectroni | | | | | | parker Signed 07/16/2011 | | | | | | 6:11PM | | | | + + + + + + + + | Specimen | + + | | + + + + + + + | Performing | Address | City/State/Zipcode | Phone Number | | Organization | | | | + + + + + | [facility] | [address] | [place] [address] | | | DERMATOPATHOLOGY | [address] | | | + + + + + documented in this encounter Visit Diagnoses Not on filedocumented in this encounter
--- OUTSIDE RECORDS SUMMARY | ~2019-01-14 | XMS | Encounter Summary ---
Demographics + + + | Address | [address] | | | [place] [address] | + + + | Home Phone | | + + + | Preferred Language | Unknown | + + + | Marital Status | Single | + + + | Restorationism Affiliation | Unknown | + + + [...] Providers + +------+ + | Care Glass Mould Cleaner Name | Role | Phone | + [...] | | | | | [address] [place], | | | | | | [place] [address] | | | +--------+ + + + [...] | [facility] - | [address] | [place] [address] | | | IMMUNOGENETICS/TRANS | [address] | | | | PLANT LABORATORY | | | | + + + + + documented in this encounter Visit Diagnoses Not on filedocumented in this encounter"
--- OUTSIDE RECORDS SUMMARY | ~2019-01-14 | XMS | Encounter Summary ---
Demographics + + + | Address | [address] | | | [place] [address] | + + + | Home Phone [...] Team Providers + +------+ + | Care Middle School Teacher Name | Role | Phone | + +------+ + PCP | Unavailable | + +------+ + Encounter Details +--------+ + + + + | Date | Type | Department | Care Team | Description | +--------+ + + + + | 11/17/ | Lab | LAB IMMUNOGENETIC | | | | 2016 | Requisition | AND TRANSPLANT LAB | | | | | | [address] | | | | | | [address] [place], | | | | | | [place] [address] | | | +--------+ + + + [...] FLOW HLA AB PRA | Routin | 11/17/2016 | | | | SCREEN I/II | e | 1:58 PM | | | | | | PDT | | | + +--------+ + + + documented in this encounter Results LIT FLOW HLA AB PRA SCREEN I/II (11/17/2016 1:58 PM PDT) + + | Specimen | + + | Blood - Blood | | (substance) | + + + + + + + | Performing | Address | City/State/Zipcode | Phone Number | | Organization | | | | + + + + + | [facility] - | [address] | [place] [address] | | | IMMUNOGENETICS/TRANS | [address] | | | | PLANT LABORATORY | | | | + + + + + documented in this encounter Visit Diagnoses Not on filedocumented in this encounter"
--- OUTSIDE RECORDS SUMMARY | ~2019-01-14 | XMS | Encounter Summary ---
Demographics + + + | Address | [address] | | | [place] [address] | + + + | Home Phone | | + + + | Preferred Language | Unknown | + + + | Marital Status | | + + + | Confucianist Affiliation | 1077 | + + + | Race | Unknown | + + + | Ethnic Group | Unknown | + + + Author + + + | Author | [facility] (Historical as of | | | 10-29-18) | + + + | Organization | [facility] (Historical as of | | | 10-29-18) [...] Team Providers + +------+ + | Care Environmental Technician Name | Role | Phone | [...] + + | 10/27/ | Office | [facility] | Nelsy Hernandez | End stage renal | | 2019 | Visit | Nephrology [address] | MD [address] | failure on dialysis | | | | [address] [place] | [facility] [place] A | (HCC) (Primary Dx) | | | | [place] [address] | [place] | | | | | [address] | [address] | | | | | [phone] | [phone] | | | | | | | [...] may be different fr om the original. [facility] visit for ESRD Subjective: Ms. Marie [...] | | | | | [facility] Denise | | | | | | [place] | | | | | | [address] | | | | | | [phone] | | | | | | | | +--------+---------+ + + + | 03/02/ | Office | Nephrology | Nelsy Hernandez | | | 2018 | Visit | | MD [address] | | | | | | [facility] [place]ise | | | | | | [place] | | | | | | [address] | | | | | | [phone] | | | | | | | | +--------+---------+ + + + as of this encounter Visit Diagnoses + + | Diagnosis | + + | End stage renal failure on dialysis (HCC) - Primary | + + | End stage renal disease | + +
--- OUTSIDE RECORDS SUMMARY | ~2019-01-14 | XMS | Encounter Summary ---
Demographics + + + | Address | [address] | | | [place] [address] | + + + | Home Phone | | + + + | Preferred Language | Unknown | + + + | Marital Status | Single | + + + | Lutheran Affiliation | Unknown | + + + | Race | Unknown | + + + | Ethnic Group | Other Race | + + + Author + + + | Author | [facility] | + + + | Organization | [facility] | + + + | Address | Unknown | + + + | Phone | Unavailable | + + + Care Team Providers + +------+ + | Care Tile Ditcher Name | Role | Phone | + [...] | | | | | [address] [place], | | | | | | [place] [address] | | | +--------+ + + + [...] | [facility] - | [address] | [place] [address] | | | IMMUNOGENETICS/TRANS | [address] | | | | PLANT LABORATORY | | | | + + + + + documented in this encounter Visit Diagnoses Not on filedocumented in this encounter"
--- OUTSIDE RECORDS SUMMARY | ~2019-01-14 | XMS | Encounter Summary ---
Demographics + + + | Address | [address] | | | [place] [address] | + + + | Home Phone [...] Team Providers + +------+ + | Care Fall Internship Name | Role | Phone | + [...] | | | | | [address] [place], | | | | | | [place] [address] | | | +--------+ + + + [...] | [facility] - | [address] | [place] [address] | | | IMMUNOGENETICS/TRANS | [address] | | | | PLANT LABORATORY | | | | + + + + + documented in this encounter Visit Diagnoses Not on filedocumented in this encounter"
--- OUTSIDE RECORDS SUMMARY | ~2019-01-14 | XMS | Encounter Summary ---
Demographics + + + | Address | [address] | | | [place] [address] | + + + | Home Phone [...] Team Providers + +------+ + | Care Drilling Supervisor Name | Role | Phone | [...] | | | | [address] [place], | | | | | | [place] [address] | | | +--------+ + + + [...] [facility] - | [address] | [place] [address] | | | IMMUNOGENETICS/TRANS | [address] | | | | PLANT LABORATORY | | | | + + + + + documented in this encounter Visit Diagnoses Not on filedocumented in this encounter"
--- OUTSIDE RECORDS SUMMARY | ~2019-01-14 | XMS | Encounter Summary ---
Demographics + + + | Address | [address] | | | [place] [address] | + + + | Home Phone [...] Author + + + | Author | [facility] | + + + | Organization | [facility] | + + + | Address | Unknown | + + + | Phone | Unavailable | + + + Care Team Providers + +------+ + | Care Flavor Maker Name | Role | Phone | [...] | | | | | [address] [place], | | | | | | [place] [address] | | | +--------+ + + + [...] [facility] - | [address] | [place], [place] [address] | | | IMMUNOGENETICS/TRANS | [address] [...] [facility] - | [address] | [place] [address] | | | IMMUNOGENETICS/TRANS | [address] | | | | PLANT LABORATORY | | | | + + + + + documented in this encounter Visit Diagnoses Not on filedocumented in this encounter"
--- OUTSIDE RECORDS SUMMARY | ~2019-01-14 | XMS | Encounter Summary ---
Demographics + + + | Address | [address] | | | [place] [address] | + + + | Home Phone [...] Team Providers + +------+ + | Care Patient Financial Services Coordinator Name | Role | Phone | + +------+ + PCP | Unavailable | + +------+ + Encounter Details +--------+ + + + + | Date | Type | Department | Care Team | Description | +--------+ + + + + | 06/24/ | Lab | LAB IMMUNOGENETIC | | | | 2015 | Requisition | AND TRANSPLANT LAB | | | | | | [address] | | | | | | [address] [place], | | | | | | [place] [address] | | | +--------+ + + + [...] FLOW HLA AB PRA | Routin | 06/25/2015 | | | | SCREEN I/II | e | 12:06 PM | | | | | | PDT | | | + +--------+ + + + documented in this encounter Results LIT FLOW HLA AB PRA SCREEN I/II (06/25/2015 12:06 PM PDT) + + | Specimen | + + | Blood - Blood | | (substance) | + + + + + + + | Performing | Address | City/State/Zipcode | Phone Number | | Organization | | | | + + + + + | [facility] - | [address] | [place] [address] | | | IMMUNOGENETICS/TRANS | [address] | | | | PLANT LABORATORY | | | | + + + + + documented in this encounter Visit Diagnoses Not on filedocumented in this encounter"
--- OUTSIDE RECORDS SUMMARY | ~2019-01-14 | XMS | Encounter Summary ---
Demographics + + + | Address | [address] | | | [place] [address] | + + + | Home Phone | | + + + | Preferred Language | Unknown | + + + | Marital Status | Single | + + + | Scientology Affiliation | Unknown | + + + [...] Providers + +------+ + | Care Information Engineer Name | Role | Phone | [...] | | | | | | [place] [address] | | | +--------+ + + + [...] [facility] - | [address] | [place] [address] | | | IMMUNOGENETICS/TRANS | [address] | | | | PLANT LABORATORY | | | | + + + + + documented in this encounter Visit Diagnoses Not on filedocumented in this encounter"
--- OUTSIDE RECORDS SUMMARY | ~2019-01-14 | XMS | Encounter Summary ---
Demographics + + + | Address | [address] | | | [place] [address] | + + + | Home Phone | | + + + | Preferred Language | Unknown | + + + | Marital Status | Single | + + + | Cheondoism Affiliation | Unknown | + + + [...] Team Providers + +------+ + | Care Animal Assistant Name | Role | Phone | [...] | | | | | [address] [place], | | | | | | [place] [address] | | | +--------+ + + + [...] | [facility] - | [address] | [place] [address] | | | IMMUNOGENETICS/TRANS | [address] | | | | PLANT LABORATORY | | | | + + + + + documented in this encounter Visit Diagnoses Not on filedocumented in this encounter"
--- OUTSIDE RECORDS SUMMARY | ~2019-01-14 | XMS | Encounter Summary ---
Demographics + + + | Address | [address] | | | [place] [address] | + + + | Home Phone [...] Team Providers + +------+ + | Care Jewelry Internship Name | Role | Phone | [...] | | | | | [address] [place], | | | | | | [place] [address] | | | +--------+ + + + [...] | [facility] - | [address] | [place] [address] | | | IMMUNOGENETICS/TRANS | [address] | | | | PLANT LABORATORY | | | | + + + + + documented in this encounter Visit Diagnoses Not on filedocumented in this encounter"
--- OUTSIDE RECORDS SUMMARY | ~2019-01-14 | XMS | Encounter Summary ---
Demographics + + + | Address | [address] | | | [place] [address] | + + + | Home Phone [...] Team Providers + +------+ + | Care Craft Demonstrator Name | Role | Phone | + [...] | | | | | [address] [place], | | | | | | [place] [address] | | | +--------+ + + + [...]
--- OUTSIDE RECORDS SUMMARY | ~2019-01-14 | XMS | Encounter Summary ---
Demographics + + + | Address | [address] | | | [place] [address] | + + + | Home Phone [...] + + | Author | [facility] | + + + | Organization | [facility] | + + + | Address | Unknown | + + + | Phone | Unavailable | + + + Care Team Providers + +------+ + | Care Director Of Security Name | Role | Phone | + +------+ + PCP | Unavailable | + +------+ + Encounter Details +--------+ + + + + | Date | Type | Department | Care Team | Description | +--------+ + + + + | 10/31/ | Lab | LAB IMMUNOGENETIC | | | | 2014 | Requisition | AND TRANSPLANT LAB | | | | | | [address] | | | | | | [address] [place], | | | | | | [place] [address] | | | +--------+ + + + [...] + +--------+ + + + | HLA [facility] KIDNEY | Routin | 10/31/2014 | | Results for this | | RECIPIENT PANEL | e | 1:27 PM | | procedure are in the | | | | PDT | | results section. | + +--------+ + + + | LIT FLOW HLA AB PRA | Routin | 10/31/2014 | | | | SCREEN I/II | e | 1:27 PM | | | | | | PDT | | | + +--------+ + + + | LIT HLA-B LOW RES | Routin | 10/31/2014 | | | | | e | 1:27 PM | | | | | | PDT | | | + +--------+ + + + | LIT HLA-A LOW RES | Routin | 10/31/2014 | | | | | e | 1:27 PM | | | | | | PDT | | | + +--------+ + + + | LIT HLA-DQ LOW RES | Routin | 10/31/2014 | | | | | e | 1:27 PM | | | | | | PDT | | | + +--------+ + + + | LIT RBC GROUP - TX, | Routin | 10/31/2014 | | | | BLOOD | e | 1:27 PM | | | | | | PDT | | | + +--------+ + + + | LIT-HLA-DR LOW RES | Routin | 10/31/2014 | | Results for this | | | e | 1:27 PM | | procedure are in the | | | | PDT | | results section. | + +--------+ + + + documented in this encounter Results LIT FLOW HLA AB PRA SCREEN I/II (10/31/2014 1:27 PM PDT) + + | Specimen | + + | Blood - Blood | + + + + + + + | Performing | Address | City/State/Zipcode | Phone Number | | Organization | | | | + + + + + | [facility] - | [address] | [place] [address] | | | IMMUNOGENETICS/TRANS | [address] | | | | PLANT LABORATORY | | | | + + + + + LIT HLA-DQ LOW RES (10/31/2014 1:27 PM PDT) + + | Specimen | + + | Blood - Blood | + + + + + + + | Performing | Address | City/State/Zipcode | Phone Number | | Organization | | | | + + + + + | [facility] - | [address] | [place] [address] | | | IMMUNOGENETICS/TRANS | [address] | | | | PLANT LABORATORY | | | | + + + + + LIT-HLA-DR LOW RES (10/31/2014 1:27 PM PDT) + + + + + [...] | [facility] - | [address] | [place] [address] | | | IMMUNOGENETICS/TRANS | [address] | | | | PLANT LABORATORY | | | | + + + + + LIT HLA-B LOW RES (10/31/2014 1:27 PM PDT) + + | Specimen | + + | Blood - Blood | + + + + + + + | Performing | Address | City/State/Zipcode | Phone Number | | Organization | | | | + + + + + | [facility] - | [address] | [place] [address] | | | IMMUNOGENETICS/TRANS | [address] | | | | PLANT LABORATORY | | | | + + + + + LIT HLA-A LOW RES (10/31/2014 1:27 PM PDT) + + | Specimen | + + | Blood - Blood | + + + + + + + | Performing | Address | City/State/Zipcode | Phone Number | | Organization | | | | + + + + + | [facility] - | [address] | [place] [address] | | | IMMUNOGENETICS/TRANS | [address] | | | | PLANT LABORATORY | | | | + + + + + LIT RBC GROUP - TX, BLOOD (10/31/2014 1:27 PM PDT) + + | Specimen | + + | Blood - Blood | + + + + + + + | Performing | Address | City/State/Zipcode | Phone Number | | Organization | | | | + + + + + | [facility] - | [address] | [place] [address] | | | IMMUNOGENETICS/TRANS | [address] | | | | PLANT LABORATORY | | | | + + + + + documented in this encounter Visit Diagnoses Not on filedocumented in this encounter"
--- OUTSIDE RECORDS SUMMARY | ~2019-01-14 | XMS | Encounter Summary ---
Demographics + + + | Address | [address] | | | [place] [address] | + + + | Home Phone [...] Team Providers + +------+ + | Care Reinforcing Rod Layer Name | Role | Phone | + [...] | | | | | [address] [place], | | | | | | [place] [address] | | | +--------+ + + + [...] | [facility] - | [address] | [place] [address] | | | IMMUNOGENETICS/TRANS | [address] | | | | PLANT LABORATORY | | | | + + + + + documented in this encounter Visit Diagnoses Not on filedocumented in this encounter"
--- OUTSIDE RECORDS SUMMARY | ~2019-01-14 | XMS | Encounter Summary ---
Demographics + + + | Address | [address] | | | [place] [address] | + + + | Home Phone [...] Team Providers + +------+ + | Care Bookkeeping Teacher Name | Role | Phone | [...] | | | | | [address] [place], | | | | | | [place] [address] | | | +--------+ + + + [...] [facility] - | [address] | [place] [address] | | | IMMUNOGENETICS/TRANS | [address] | | | | PLANT LABORATORY | | | | + + + + + documented in this encounter Visit Diagnoses Not on filedocumented in this encounter"
--- OUTSIDE RECORDS SUMMARY | ~2019-01-14 | XMS | Encounter Summary ---
Demographics + + + | Address | [address] | | | [place] [address] | + + + | Home Phone | | + + + | Preferred Language | Unknown | + + + | Marital Status | Single | + + + | Jainism Affiliation | Unknown | + + + | Race | Unknown | + + + | Ethnic Group | Other Race | + + + Author + + + | Author | [facility] | + + + | Organization | [facility] | + + + | Address | Unknown | + + + | Phone | Unavailable | + + + Care Team Providers + +------+ + | Care Bombsight Specialist Name | Role | Phone | [...] | | | | | [address] [place], | | | | | | [place] [address] | | | +--------+ + + + [...] + + | [facility] - | [address] [facility] | [place] [address] | | | IMMUNOGENETICS/TRANS | [address] [...] [facility] - | [address] | [place] [address] | | | IMMUNOGENETICS/TRANS | [address] [...] + + + | [facility] - | [address] | [place] [address] | | | IMMUNOGENETICS/TRANS | [address] | | | | PLANT LABORATORY | | | | + + + + + documented in this encounter Visit Diagnoses Not on filedocumented in this encounter"
--- OUTSIDE RECORDS SUMMARY | ~2019-01-14 | XMS | Encounter Summary ---
Demographics + + + | Address | [address] | | | [place] [address] | + + + | Home Phone | | + + + | Preferred Language | Unknown | + + + | Marital Status | | + + + | Buddhism Affiliation | 1077 | + + + | Race | Unknown | + + + | Ethnic Group | Unknown | + + + Author + + + | Author | [facility] [employer] (Historical as of | | | 10-29-18) | + + + | Organization | [facility] [employer] (Historical as of | | | 10-29-18) [...] Team Providers + +------+ + | Care Refractory Repairer Name | Role | Phone | + +------+ + | Arron Buckner MD | PCP | Unavailable | + +------+ + Reason for Visit + + + | Reason | Comments | + + + | Care Coordination | [facility] October 2018, [place] | + + + Encounter Details +--------+ + + + + | Date | Type | Department | Care Team | Description | +--------+ + + + + | 10/28/ | Documentati | [facility] | Erica Younger | Care Coordination | | 2019 | on Only | Nephrology [address] | A, HELMET BINDER | ([facility] October 2018, | | | | [address] [place] | | [place] ) | | | | [place] | | | | | | [address] | | | | | | [phone] | | | +--------+ + + + [...] | 02/02/ | Office | Nephrology | NatanrodoChantelle | | | 2018 | Visit | | MD Kate Walker N | | | | | | [place] | | | | | | [place] | | | | | | [address] | | | | | | [phone] | | | | | | | | +--------+---------+ + + + | 03/02/ | Office | Nephrology | Chantelle Aly | | | 2018 | Visit | | MD Kate Wakler N | | | | | | [place] | | | | | | [place] | | | | | | [address] | | | | | | [phone] | | | | | | | | +--------+---------+ + + + as of this encounter Visit Diagnoses Not on filein this encounter"
--- OUTSIDE RECORDS SUMMARY | ~2019-01-14 | XMS | Encounter Summary ---
Demographics + + + | Address | [address] | | | [place] [address] | + + + | Home Phone [...] Team Providers + +------+ + | Care Wastewater Treatment Plant Operator Name | Role | Phone | + +------+ + PCP | Unavailable | + +------+ + Encounter Details +--------+ + + + + | Date | Type | Department | Care Team | Description | +--------+ + + + + | 06/21/ | Results | [address] | [address] | | | 2008 | Only | [address] | [phone] | | | | | Rd Mailcode: [id number] | | | | | | [place], [place] | | | | | | [address] | | | | | | [phone] | | | +--------+ + + + [...] received.Dear | | | | | | [place]: Thank you | | | | | [...] [facility] | [place] [address] | [place] [address] | | | DERMATOPATHOLOGY | [address] | | | + + + + + documented in this encounter Visit Diagnoses Not on filedocumented in this encounter"
--- OUTSIDE RECORDS SUMMARY | ~2019-01-14 | XMS | Encounter Summary ---
Demographics + + + | Address | [address] | | | [place] [address] | + + + | Home Phone | | + + + | Preferred Language | Unknown | + + + | Marital Status | Single | + + + | Mosque Affiliation | Unknown | + + + | Race | Unknown | + + + | Ethnic Group | Other Race | + + + Author + + + | Author | [facility] | + + + | Organization | [facility] | + + + | Address | Unknown | + + + | Phone | Unavailable | + + + Care Team Providers + +------+ + | Care Nursing Educator Name | Role | Phone | + [...] | | | | | [address] [place], | | | | | | [place] [address] | | | +--------+ + + + [...] | [facility] - | [address] | [place] [address] | | | IMMUNOGENETICS/TRANS | [address] | | | | PLANT LABORATORY | | | | + + + + + documented in this encounter Visit Diagnoses Not on filedocumented in this encounter"
--- OUTSIDE RECORDS SUMMARY | ~2019-01-14 | XMS | Encounter Summary ---
Demographics + + + | Address | [address] | | | [place] [address] | + + + | Home Phone | | + + + | Preferred Language | Unknown | + + + | Marital Status | Single | + + + | Denominational Affiliation | Unknown | + + + [...] Team Providers + +------+ + | Care Edging Catcher Name | Role | Phone | + [...] | | | | | [address] [place], | | | | | | [place] [address] | | | +--------+ + + + [...] FLOW HLA II AB | Routin | 04/23/2015 | | | | AG ID, BLOOD | e | 1:52 PM | | | | | | PST | | | + +--------+ + + + documented in this encounter Results LIT FLOW HLA II AB AG ID, BLOOD (04/23/2015 1:52 PM PST) + + | Specimen | + + | Blood - Blood | | (substance) | + + + + + + + | Performing | Address | City/State/Zipcode | Phone Number | | Organization | | | | + + + + + | [facility] - | [address] | [place] [address] | | | IMMUNOGENETICS/TRANS | [address] | | | | PLANT LABORATORY | | | | + + + + + documented in this encounter Visit Diagnoses Not on filedocumented in this encounter"
--- OUTSIDE RECORDS SUMMARY | ~2019-01-14 | XMS | Encounter Summary ---
Demographics + + + | Address | [address] | | | [place] [address] | + + + | Home Phone | | + + + | Preferred Language | Unknown | + + + | Marital Status | | + + + | Advent Affiliation | 1077 | + + + | Race | Unknown | + + + | Ethnic Group | Unknown | + + + Author + + + | Author | [facility] (Historical as of | | | 10-29-18) | + + + | Organization | [facility] (Historical as of | | | 10-29-18) [...] Team Providers + +------+ + | Care Automatic Steel Tie Adjuster Name | Role | Phone | + [...] + + | 10/28/ | Documentati | [facility] | Erica Younger | Care Coordination | | 2019 | on Only | Nephrology [address] | A, TEMPLE MEAT CUTTER | ([facility] October 2018, | | | | [address] [place] | | [place] ) | | | | [place] | | | | | | [address] | | | | | | [phone] | | | +--------+ + + + [...] [place] | | | | | | [address] | | | | | | [phone] | | | | | | | | +--------+---------+ + + + | 03/02/ | Office | Nephrology | Chantelle Aly | | | 2018 | Visit | | MD Kate Walker N | | | | | | [place] | | | | | | [place] | | | | | | [address] | | | | | | [phone] | | | | | | | | +--------+---------+ + + + as of this encounter Visit Diagnoses Not on filein this encounter"
--- OUTSIDE RECORDS SUMMARY | ~2019-01-14 | XMS | Clinical Summary ---
Demographics + + + | Address | [address] | | | [place] [address] | + + + | Home Phone | | + + + | Preferred Language | Unknown | + + + | Marital Status | | + + + | Quaker Affiliation | 1077 | + + + | Race | Unknown | + + + | Ethnic Group | Unknown | + + + Author + + + | Author | [facility] [employer] (Historical as of | | | 10-29-18) | + + + | Organization | [facility] [employer] (Historical as of | | | [...] Team Providers + +------+ + | Care Liquor Grinder Mill Operator Name | Role | Phone | [...] (V67.0) Dec donor | | | | 9236-3369 (rejections) | | 6289-2014 | + + + + + | [...] [place] | | | | | | [address] | | | | | | [phone] | | | | | | | | +--------+---------+ + + + | 03/02/ | Office | | Chantelle Aly | | | 2018 | Visit | | MD Kate Walker N | | | | | | [place] | | | | | | [place] | | | | | | [address] | | | | | | [phone] | | | | | | | [...] +------+-------+ + | MEDICARE | MEDICA | [id number] | | | [address] | | | RE | | | | [place] [address] | | | IP-OP | | | | | + +--------+ +------+-------+ + | PREMERA | PREMER | [id number] | | | [address] [address] | | | A BLUE | 0 | | | [place], [place] | | | CARD | | | | [address] | + +--------+ +------+-------+ + + +--------+ [...] | [place] | | | [address] | [address] | + +--------+ +--------+ + + | MARIE ABDI | Plasti | Self [birth year] | Home: | [address] | | | cs | | 1965 | [phone] | [place] | | | | | | [address] | [address] | + +--------+ +--------+ + +
--- OUTSIDE RECORDS SUMMARY | ~2019-01-14 | XMS | Encounter Summary ---
Demographics + + + | Address | [address] | | | [place] [address] | + + + | Home Phone | | + + + | Preferred Language | Unknown | + + + | Marital Status | Single | + + + | Methodist Affiliation | Unknown | + + + [...] Team Providers + +------+ + | Care Silver Chaser Name | Role | Phone | + [...] | | | | | | [place] [address] | | | +--------+ + + + [...] [facility] - | [address] | [place] [address] | | | IMMUNOGENETICS/TRANS | [address] | | | | PLANT LABORATORY | | | | + + + + + documented in this encounter Visit Diagnoses Not on filedocumented in this encounter"
--- OUTSIDE RECORDS SUMMARY | ~2019-01-14 | XMS | Encounter Summary ---
Demographics + + + | Address | [address] | | | [place] [address] | + + + | Home Phone [...] Team Providers + +------+ + | Care Mammal Keeper Name | Role | Phone | + [...] | | | | | | Floor [place], [place] | | | | | | [address] | | | | | | [phone] | | | +--------+ + + + [...] | | | | | | skin [id number]. The skin | | | | | [...] + + | [facility] | [address] | [place] [address] | | | DERMATOPATHOLOGY | [address] | | | + + + + + documented in this encounter Visit Diagnoses Not on filedocumented in this encounter
--- OUTSIDE RECORDS SUMMARY | ~2019-01-14 | XMS | Encounter Summary ---
Demographics + + + | Address | [address] | | | [place] [address] | + + + | Home Phone | | + + + | Preferred Language | Unknown | + + + | Marital Status | Single | + + + | Confucianism Affiliation | Unknown | + + + [...] Team Providers + +------+ + | Care Journeyman Mechanic Name | Role | Phone | [...] | | | | | [address] [place], | | | | | | [place] [address] | | | +--------+ + + + [...] | [facility] - | [address] | [place] [address] | | | IMMUNOGENETICS/TRANS | [address] | | | | PLANT LABORATORY | | | | + + + + + documented in this encounter Visit Diagnoses Not on filedocumented in this encounter"
--- OUTSIDE RECORDS SUMMARY | ~2019-01-14 | XMS | Encounter Summary ---
Demographics + + + | Address | [address] | | | [place] [address] | + + + | Home Phone [...] Team Providers + +------+ + | Care Advertising Sales Associate Name | Role | Phone | + [...] | | | | | [address] [place], | | | | | | [place] [address] | | | +--------+ + + + [...] [facility] - | [address] | [place] [address] | | | IMMUNOGENETICS/TRANS | [address] | | | | PLANT LABORATORY | | | | + + + + + documented in this encounter Visit Diagnoses Not on filedocumented in this encounter"
--- OUTSIDE RECORDS SUMMARY | ~2019-01-14 | XMS | Encounter Summary ---
Demographics + + + | Address | [address] | | | [place] [address] | + + + | Home Phone | | + + + | Preferred Language | Unknown | + + + | Marital Status | Single | + + + | Taoism Affiliation | Unknown | + + + [...] Providers + +------+ + | Care Licensed Pesticide Applicator Name | Role | Phone | + [...] | | | | | [address] [place], | | | | | | [place] [address] | | | +--------+ + + + [...] | [facility] - | [address] | [place] [address] | | | IMMUNOGENETICS/TRANS | [address] [...] [facility] - | [address] | [place] [address] | | | IMMUNOGENETICS/TRANS | [address] [...] | [facility] - | [address] | [place] [address] | | | IMMUNOGENETICS/TRANS | [address] [...] [facility] - | [address] | [place] [address] | | | IMMUNOGENETICS/TRANS | [address] [...] [facility] - | [address] | [place] [address] | | | IMMUNOGENETICS/TRANS | [address] [...] [facility] - | [address] | [place] [address] | | | IMMUNOGENETICS/TRANS | [address] | | | | PLANT LABORATORY | | | | + + + + + documented in this encounter Visit Diagnoses Not on filedocumented in this encounter"
--- OUTSIDE RECORDS SUMMARY | ~2019-01-14 | XMS | Encounter Summary ---
Demographics + + + | Address | [address] | | | [place] [address] | + + + | Home Phone [...] + + + | Author | [facility] | + + + | Organization | [facility] | + + + | Address | Unknown | + + + | Phone | Unavailable | + + + Care Team Providers + +------+ + | Care Satellite Technician Name | Role | Phone | [...] | | | | | [address] [place], | | | | | | [place] [address] | | | +--------+ + + + [...] | [facility] - | [address] | [place] [address] | | | IMMUNOGENETICS/TRANS | [address] | | | | PLANT LABORATORY | | | | + + + + + documented in this encounter Visit Diagnoses Not on filedocumented in this encounter"
--- OUTSIDE RECORDS SUMMARY | ~2019-01-14 | XMS | Encounter Summary ---
Demographics + + + | Address | [address] | | | [place] [address] | + + + | Home Phone | | + + + | Preferred Language | Unknown | + + + | Marital Status | Single | + + + | Gnosticist Affiliation | Unknown | + + + [...] Team Providers + +------+ + | Care Software Engineer Intern Name | Role | Phone | + [...] | | | | | [address] [place], | | | | | | [place] [address] | | | +--------+ + + + [...] | [facility] - | [address] | [place] [address] | | | IMMUNOGENETICS/TRANS | [address] | | | | PLANT LABORATORY | | | | + + + + + documented in this encounter Visit Diagnoses Not on filedocumented in this encounter"
--- OUTSIDE RECORDS SUMMARY | ~2019-01-14 | XMS | Encounter Summary ---
Demographics + + + | Address | [address] | | | [place] [address] | + + + | Home Phone | | + + + | Preferred Language | Unknown | + + + | Marital Status | Single | + + + | Latter-Day Affiliation | Unknown | + + + [...] Team Providers + +------+ + | Care Vacuum Plastic Forming Machine Operator Name | Role | Phone | [...] | | | | [address] [place], | | | | | | [place] [address] | | | +--------+ + + + [...] [facility] - | [address] | [place] [address] | | | IMMUNOGENETICS/TRANS | [address] | | | | PLANT LABORATORY | | | | + + + + + documented in this encounter Visit Diagnoses + + | Diagnosis | + + | End stage renal disease (HCC) End stage renal disease | + + documented in this encounter"
[~2019-01-14 11:11] MED LIST changes: +LOSARTAN POTASS50 MG PO; +VITAMIN D1000 UNIT PO
== END 2019-01-14 12:57 | disposition home or self-care (01) ==
LOC: ED 11:11
DX: S91.211A Laceration without foreign body of right great toe with damage to nail, initial encounter (principal); W22.8XXA Striking against or struck by other objects, initial encounter; E11.9 Type 2 diabetes mellitus without complications; I10 Essential (primary) hypertension; Z88.0 Allergy status to penicillin; Z88.5 Allergy status to narcotic agent; Z79.899 Other long term (current) drug therapy
CPT/HCPCS: 73660; 99283-25

== ENCOUNTER 2019-11-07 07:50 | Day surgery (SDC) | payer MEDICARE, BC ==
--- NOTE | 2019-11-06 17:40 | NUR ---
PATIENT SEEN TODAY FOR SURGICAL PREADMIT. PATIENT STATES SHE HAS CKD AND CURRENTLY ON TRANSPLANT LIST WITH HX KIDNEY TRANSPLANT X2. PATIENT STATES SHE GETS DIALYSIS REGULARLY AND NO LONGER PRODUCES URINE. PHONE CALL TO [facility], OFFICE CLOSED, UNABLE TO GET NOTES. PATIENT STATES SHE IS FOLLOWED BY CARDIOLOGY IN [place], PHONE CALL TO [facility], OFFICE CLOSED, UNABLE TO GET NOTES. EKG AND LABS OBTAINED PER PROTOCOL. INFORMED SHARED WITH DAY SURGERY CHARGE.
[~2019-11-07] VITALS: Ht 170.2 cm; Wt 73.0 kg
--- NOTE | ~2019-11-07 | OR ---
[facility] [address] [place], [place] [address] Draft DATE OF OPERATION: 11/07/2019 SURGEON: Erick Arauz MD DATE OF PROCEDURE: 11/07/2019 PREOPERATIVE DIAGNOSIS: Chronic ear infections. POSTOPERATIVE DIAGNOSIS: Chronic ear infections. PROCEDURE: Bilateral myringotomy and ventilation tube insertion. ANESTHESIA: General LMA; MEKA Figueroa. PREOPERATIVE HISTORY: Marie is a 53-year-old lady who has had a long history of ear problems. She had ventilation tubes inserted by Dr. Law about seven years ago. We do not have any records, but she has had lots of wax, drainage, hearing loss, unable to really assess her ears in the office due to significant severe coughing spasms when even touching her ear canal with a speculum. She is taken to the operating room for exam under anesthesia, placement of ear tubes. OPERATIVE PROCEDURE AND FINDINGS: After informed consent, the patient was taken to the operating room, placed in supine position where general LMA anesthesia was induced. The patient and procedure were verified. Left ear was examined with the operating microscope. The ear canal was cleared of cerumen. There was a Paparella tube in the inferior anterior eardrum. This was removed and replaced with a T-tube. Cipro drops applied to the ear canal, cotton ball to the meatus. Same procedure and same findings in the right ear. The patient tolerated procedure well, was awakened, extubated, transported to recovery room in good condition. No complications. BLOOD LOSS: Minimal. PATIENT NAME: MARIE CHAN OPERATIVE REPORT DATE OF : 67 REPORT #: [id number] PHYSICIAN: ERICK ARAUZ MD PCP: GABRIEL LEONE REPORT IS CONFIDENTIAL AND NOT TO BE RELEASED WITHOUT AUTHORIZATION [address] [address] Draft SPECIMEN: No specimen. DRAINS: No drains. Erick Arauz MD /MODL /[id number] Copies: ~ PATIENT NAME: MARIE CHAN OPERATIVE REPORT DATE OF : 67 REPORT #: [id number] PHYSICIAN: ERICK ARAUZ MD PCP: GABRIEL LEONE REPORT IS CONFIDENTIAL AND NOT TO BE RELEASED WITHOUT AUTHORIZATION
[~2019-11-07 07:50] MED LIST changes: +DULOXETINE HCL20 MG PO
--- NOTE | 2019-11-07 10:08 | NUR ---
PT ALERT, ORIENTED AND SUPPORTED BY HER NILES. PT SEEMS PREPARED, HAD FEW QUESTIONS. BOTH STILL A LITTLE ANXIOUS BECAUSE OF PT'S MED HISTORY. PT REQUESTED PRAYER, WILL FOLLOW NEEDED
--- NOTE | 2019-11-07 10:29 | NUR ---
11/07/19 Lovely9 Valeria Palmer 1010- PT TO PACU IN SUPINE POSITION. EYES CLOSED. RESPOND TO TACTILE AND VERBAL STIMULI AND FALLS QUICKLY BACK TO SLEEP. BREATHING EASY AND UNLABORED. SPO2 >95% ON 10 L O2 VIA SIMPLE MASK. VSS. AV SHUNT ON L AC WITH PALPABLE THRILL. 1015- PT RESPONDS TO VERBAL/TACTILE STIMULI. DENIES PAIN OR NAUSEA. FALLS QUICKLY BACK TO SLEEP. O2 TITRATED TO ROOM AIR. 1020- PT ENCORUAGED TO TAKE DEEP BREATHS WITH PERIODIC APNIC PERIODS. PT REQUESTING WATER. PT WITH EYES OPEN LISTENING TO MD TALK ABOUT PROCEDURE AT BEDSIDE. NODS HEAD APPROPRIATELY. 1026- PT TOLERATING PO WELL. REMAINS DROWSY. PT DESATTING TO LOW 80S DURING APNIC PERIODS DESPITE FREQUENT PROMPTING TO TAKE DEEP BREATHS. O2 APPLIED VIA NC WITH ETCO2 MONITORING. SPO2 >95% ON 2 LITERS.
--- NOTE | 2019-11-07 12:06 | NUR ---
1155: PATIENT BACK IN DAY SURGERY ROOM FROM PACU. ALERT AND AWAKE. VS CHECKED. SCDs ON. IV SITE WNL. IV SALINE LOCKED. COTTON IN BILATERAL EARS CLEAN AND DRY. AT BEDSIDE. CALL LIGHT WITHIN REACH.
--- NOTE | 2019-11-07 12:41 | NUR ---
VS CHECKED. COTTON IN BILATERAL EARS CLEAN AND DRY. PATIENT ASSISTED OOB. GAIT STEADY. IV DC'D WNL. TIP INTACT. DRESSING APPLIED. PATIENT GETTING DRESSED WITH HELP FROM .
--- NOTE | 2019-11-07 13:02 | NUR ---
1250: PATIENT DRESSED AND STATES READY TO GO HOME. PATIENT DISCHARGED TO HOME WITH VIA WHEELCHAIR.
== END 2019-11-07 13:10 | disposition home or self-care (01) ==
LOC: DS 07:50 → OPS 07:50 → DS 09:30 → OPS 09:30
PROVIDERS: Otolaryngology
PROC: 099500Z Drainage of Right Middle Ear with Drainage Device, Open Approach (ICD-10-PCS; 2019-11-07)
PROC: 099600Z Drainage of Left Middle Ear with Drainage Device, Open Approach (ICD-10-PCS; principal; 2019-11-07 09:30)
DX: H66.93 Otitis media, unspecified, bilateral (principal); I10 Essential (primary) hypertension; K21.9 Gastro-esophageal reflux disease without esophagitis; I25.10 Atherosclerotic heart disease of native coronary artery without angina pectoris; E11.40 Type 2 diabetes mellitus with diabetic neuropathy, unspecified; Z88.5 Allergy status to narcotic agent; Z88.0 Allergy status to penicillin; Z79.899 Other long term (current) drug therapy; Z79.84 Long term (current) use of oral hypoglycemic drugs
CPT/HCPCS: 00126; J0330; J1100; J1885; J2250; J2310; J2405; J2704; J2765; J3010; J7121

== ENCOUNTER 2021-04-27 21:15 | Emergency (ER) | payer OTHER, MEDICARE ==
[~2021-04-27] VITALS: Ht 170.2 cm; Wt 70.3 kg
[~2021-04-27 21:15] MED LIST changes: +LOSARTAN POTASS25 MG PO; +VANCOMYCIN750 MG/150 IV
--- OUTSIDE RECORDS SUMMARY | 2021-04-27 21:22 | XMS ---
PreManage Notification: STEVEN CHAN Security Radio Officer Events No recent Security Events currently on file CRITERIA MET - ED - Positive COVID-19 Lab Result - [facility] PROVIDERS There are no care providers on record at this time. Bernard has no Care Guidelines for this patient. Eleanor VISIT COUNT (12 MO.) 1 WALLACE Magana TOTAL 1 NOTE: Visits indicate total known visits. ED/C VISIT TRACKING (12 MO.) 04/27/2021 21:16 WALLACE [facility] OR TYPE: Emergency COMPLAINT: - L KNEE INJURY INPATIENT VISIT TRACKING (12 MO.) No inpatient visits to display in this time frame [email or web address]
[2021-04-27] MEDS ORDERED: PERCOCET 5-3251 EACH PO (22:18)
[2021-04-27] MEDS ORDERED: ONDANSETRON ODT8 MG PO (22:18)
== END 2021-04-27 22:45 | disposition home or self-care (01) ==
LOC: ED 21:15
DX: S82.002A Unspecified fracture of left patella, initial encounter for closed fracture (principal); E11.9 Type 2 diabetes mellitus without complications; I10 Essential (primary) hypertension; Z88.0 Allergy status to penicillin; Z88.5 Allergy status to narcotic agent; Z79.899 Other long term (current) drug therapy; W01.0XXA Fall on same level from slipping, tripping and stumbling without subsequent striking against object, initial encounter
CPT/HCPCS: 73700; 96374; 99283-25; A9270; J2270

== ENCOUNTER 2021-05-22 10:25 | Day surgery (SDC) | payer MEDICARE, OTHER ==
[~2021-05-22] VITALS: Ht 170.2 cm; Wt 72.3 kg
[~2021-05-22 10:25] MED LIST changes: +ONDANSETRON ODT8 MG PO; +PERCOCET 5-3251 EACH PO
--- NOTE | 2021-05-22 10:48 | NUR ---
RECENT FALL 04/29/21 FX L KNEE. HAS BRACE ON.
--- NOTE | 2021-05-22 12:25 | NUR ---
05/22/21 1225 Miriam Ho 1220- PT ARRIVES TO PACU NONAROUSABLE TO NOXIOUS STIMULI. RESP EVEN AND UNLABORED. OXYGEN SAT HIGH 90'S TO 100% ON 4L VIA NC.
--- NOTE | 2021-05-28 12:59 | PATH ---
[facility] [address] [address] [facility], [place] [address] Signed SPECIMEN(S): A BONE MARROW - CORE SPECIMEN(S): B BONE MARROW - ASPIRATION SPECIMEN(S): C FLOW CYTOMETRY, EDTA ASP CLINICAL HISTORY: Bone marrow biopsy. 55-year-old female with CKD and pancytopenia. Evaluate MDS vs. Fanconi late presentation. D46.9 (myelodysplastic syndrome, unspecified) DIAGNOSIS SUMMARY: A. Peripheral blood - Leukopenia and normocytic anemia. Absolute neutrophil count 2,000/uL. - No circulating blasts identified. B. Bone marrow biopsy and aspiration: - Normocellular marrow, 25%, with 1% blasts. - Trilineage hematopoiesis with no significant dyspoiesis. - Increased marrow iron stores by Prussian Blue stain. No ring sideroblasts are identified. - Focal small vague granulomas are present. Stains for organisms are negative. - No malignancy identified. - See Diagnostic Comment. DIAGNOSTIC COMMENT: No myelodysplasia is identified by morphology. A FISH panel for MDS is pending to help exclude an occult evolving MDS. Insufficient material was submitted for chromosome analysis. Overall, an anemia of chronic disease is favored. Exclusion of autoimmune disorders, liver disease, drug interactions, and viral infections is suggested. Focal small, vague granulomas are noted. Stains for acid fast and fungal organisms are negative. JLP:C2NR HISTORICAL SUMMARY: See above clinical history. PERIPHERAL BLOOD: HEMOGRAM (05/22/2021): WBC 3.2 K/ul, RBC 3.79 M/ul, HGB 11.8 g/dl, HCT 35.6%, MCV 94.0 fl, MCH 31.1 pg, MCHC 33.1 g/dl, RDW 13.8%, PLT 171 K/ul, MPV 7.5 fl. AUTOMATED DIFFERENTIAL COUNT: Neutrophils 63.1%, lymphocytes 26.5%, monocytes 6.5%, eosinophils 3.0%, basophils 0.9%. PATIENT NAME: STEVEN CHAN PATHOLOGY DATE OF : 67 REPORT #: [id number] PHYSICIAN: MARIAN PATHOLOGY PCP: GABRIEL LEONE REPORT IS CONFIDENTIAL AND NOT TO BE RELEASED WITHOUT AUTHORIZATION [facility] [address] [place], [place] [address] Signed The red blood cells are normocytic and normochromic with minimal anisopoikilocytosis. The neutrophils are unremarkable. Lymphocytes are composed of small mature appearing forms. Platelets appear normal in number and morphology with no platelet clumping or RBC microangiopathic effect identified. No blasts are identified. BONE MARROW: ASPIRATE SMEARS/TOUCH IMPRINT: The aspirate smears are adequate for evaluation. Scattered erythroid precursors show adequate maturation with essentially normal morphology. The myeloid precursors show full maturation with unremarkable morphology. There is no increase in blasts. Megakaryocytes are identified with a normal morphology. BONE MARROW DIFFERENTIAL COUNT (300 cells): Blasts less than 1%, promyelocytes 2%, myelocytes 7%, metamyelocytes/bands/segs 37%, erythroid precursors 36%, lymphocytes 6%, monocytes 4%, eosinophils 7%, plasma cells 1%. M:E ratio: 1.5:1 BONE MARROW CORE BIOPSY/ASPIRATE CLOT/CELL BLOCK: The aspirate clot section and the core biopsy are adequate for evaluation. The core biopsy demonstrates unremarkable trabecular bone. The cellularity is normal for age, estimated at 25%. The erythroid precursors are within normal limits with essentially unremarkable maturation. The myeloid precursors are unremarkable with no significant dyspoiesis. Blasts are not increased. Megakaryocytes appear normal in number and in morphology. Focal small vague granulomas are noted on the biopsy section. No atypical lymphoid aggregates or foreign malignant cells are detected. SPECIAL STAINS (with adequate controls): - iron (aspirate smear): Increased marrow iron stores by Prussian Blue staining. No ring sideroblasts are identified. - iron (cell block): Increased marrow iron stores by Prussian Blue staining. No ring sideroblasts are identified. - AFB (block A1): Negative for organisms. - GMS (block A1): Negative for organisms. - Reticulin: Negative. - PAS (block B1): Normal number and morphology of megakaryocytes. IMMUNOHISTOCHEMISTRY STAINS (performed on block A1 with adequate controls). - CD71: 40% - CD163: Increased. - CD34: Less than 1% - CD34 (block B1): 1% PATIENT NAME: STEVEN CHAN PATHOLOGY DATE OF : 67 REPORT #: [id number] PHYSICIAN: MARIAN PATHOLOGY PCP: GABRIEL LEONE REPORT IS CONFIDENTIAL AND NOT TO BE RELEASED WITHOUT AUTHORIZATION [facility] [address] [place], [place] [address] Signed FLOW CYTOMETRY: Bone marrow aspirate, flow cytometry: - No increase in blasts (2% myeloblasts). - Normal myeloid maturation. - No atypical lymphoid cell population. - See Comment. COMMENT: While no hematopoietic abnormality is detected in this study, correlation with clinical, morphologic, and genetic findings is recommended for full interpretation and to assess for disease processes not fully examined by flow cytometry analysis, including myelodysplastic syndrome and myeloproliferative neoplasm. FLOW CYTOMETRY ANALYSIS: FLOW DIFFERENTIAL (% Total CD45 vs. SSC gating): Myeloid 72%; Lymphoid 11%; Monocyte 2%; Dim CD45/Blast: 2%. Cell Count: 5.4 x 10*3/uL. POPULATION ANALYSIS: BLASTS: Analysis of the dim CD45 gate demonstrates 2% myeloblasts by CD34/CD117. LYMPHOID CELLS: The lymphocyte gate comprises 11% of total events and includes 92% T-cells with a CD4:CD8 ratio of 0.7:1 and normal jennings T-cell antigen expression. 8% of lymphocytes are polyclonal B-cells with a kappa:lambda ratio of 2.1:1. The remainders are NK-cells. MYELOID CELLS: The myeloid population comprises 72% of the total events. No aberrant or immature immunophenotypic expression is detected. MONOCYTES: The monocyte population comprises 2% of the total events. Monocytes are not increased. No aberrant immunophenotypic expression is detected. PLASMA CELLS: 0.9% plasma cells are detected in the screening gate neg-dimCD45/CD38. Plasma cells are CD45 dim and positive for CD19. ANTIBODIES USED: KAPPA, LAMBDA, CD20, CD10, CD19, CD23, CD38, CD16, CD56, CD8, CD5, CD2, CD4, CD7, CD3, CD14, CD33, CD13, HLADR, CD34, CD117, CD15, CD45: TOTAL ANTIBODIES USED: 23. TCS FINAL DIAGNOSIS PERFORMED BY: Damion Mariano MD, FACP, May 23 2021 11:38AM CYTOGENETICS: Insufficient material was submitted for chromosome analysis. FISH ANALYSIS: A FISH panel for MDS is pending and the results will be reported in an addendum. PATIENT NAME: STEVEN CHAN PATHOLOGY DATE OF : 67 REPORT #: [id number] PHYSICIAN: MARIAN PATHOLOGY PCP: GABREIL LEONE REPORT IS CONFIDENTIAL AND NOT TO BE RELEASED WITHOUT AUTHORIZATION [facility] [address] [place], [place] [address] Signed GROSS DESCRIPTION: Two specimens are received in two containers, labeled "MS." A. The specimen, labeled "MS, core," is received in formalin and consists of one cylindrical bone core fragment measuring 0.3 cm in diameter and 1.5 cm in length. The specimen is entirely submitted in cassette (A1) following decalcification in Immunocal. Cold ischemic time: Cannot be determined because of lack of information. Approximate time in formalin: 6 hours. B. The specimen, labeled "MS, clot," is received in formalin and consists of thickened clot material measuring 2.2 x 2 x 1 x 0.3 cm in aggregate. The specimen is filtered and entirely submitted in cassette (B1). Bone marrow inventory also includes: Two peripheral smears, one EDTA tube bone marrow, two heparin tubes (one bone marrow, one peripheral blood). AT (under the direct supervision of a pathologist) The Gross Description was prepared using a voice recognition system. The report was reviewed for accuracy; however, sound-alike word errors, addition and/or deletions may occur. If there is any question about this report, please contact Client Services. ADDITIONAL NOTES: Immunohistochemical and/or in situ hybridization studies were performed on this case with the appropriate positive controls that react as expected. This test was developed and its performance characteristics determined by [facility]. It has not been cleared or approved by the U.S. Food and Drug Administration. The FDA has determined that such clearance or approval is not necessary. This test is used for clinical purposes. It should not be regarded as investigational or for research. [facility] is certified under the Clinical Laboratory Improvement Amendments of 1988 (CLIA) as qualified to perform high complexity clinical laboratory testing. This assay has not been validated for specimens that have been decalcified. In this case, certain antibodies were performed by both immunohistochemistry and flow cytometry analysis because flow cytometry analysis did not fully explain all the light microscopic findings. Immunohistochemistry aided in the analysis. Both methods are deemed medically necessary in this case. This test was developed and its performance characteristics determined by PATIENT NAME: STEVEN CHAN KAYLA PATHOLOGY DATE OF : 67 REPORT #: [id number] PHYSICIAN: MARIAN JOSÉ PCP: GABRIEL LEONE REPORT IS CONFIDENTIAL AND NOT TO BE RELEASED WITHOUT AUTHORIZATION [address] [address] Signed [facility]. It has not been cleared or approved by the US Food and Drug Administration. The FDA does not require this test to go through premarket FDA review. This test is used for clinical purposes. It should not be regarded as investigational or for research. This laboratory is certified under the Clinical Laboratory Improvement Amendments (CLIA) as qualified to perform high complexity clinical laboratory testing. PERFORMING LABORATORY: The technical component was performed by [facility], [address] [place] [address] (Corporate Intern: Buster Mora D.O.; CLIA#: [id number]). Professional interpretation was performed by [facility], [facility], [address] [place] [id number] (CLIA#: [id number]) A portion of the technical component was performed by [facility], [address] [place] [address] (Corporate Intern: Renita Lyles MD; CLIA# [id number]). A portion of the technical component was performed by [facility], [address] [place] [address] (Corporate Intern: Buster Mora D.O.; CLIA#: [id number]). Professional interpretation was performed by [facility], [facility], [address] [place] [address] (CLIA # [id number]). IMAGES: A: [id number] A: [id number] Diagnostician: Ney Sanford MD Pathologist Electronically Signed 05/28/2021 Copies: ~ PATIENT NAME: STEVEN CHAN SHERMAN PATHOLOGY DATE OF : 67 REPORT #: [id number] PHYSICIAN: MARIAN JOSÉ PCP: GABRIEL LEONE REPORT IS CONFIDENTIAL AND NOT TO BE RELEASED WITHOUT AUTHORIZATION
== END 2021-05-22 13:04 | disposition home or self-care (01) ==
LOC: OPS 10:25 → DS 10:25 → OPS 12:00
PROVIDERS: ATTEND Specialist
PROC: 079T3ZX Drainage of Bone Marrow, Percutaneous Approach, Diagnostic (ICD-10-PCS; 2021-05-22)
PROC: 07DR3ZX Extraction of Iliac Bone Marrow, Percutaneous Approach, Diagnostic (ICD-10-PCS; principal; 2021-05-22 12:00)
DX: D61.818 Other pancytopenia (principal); N18.2 Chronic kidney disease, stage 2 (mild); Z94.0 Kidney transplant status
CPT/HCPCS: 01112; 36415; 80053; 83615; 85025; 88184; 88185; 88305; 88311; 88312; 88313; 88341; 88342; 88377; J2001; J2704; J7121

== ENCOUNTER 2021-11-14 14:06 | Emergency (ER) | payer MEDICARE, OTHER ==
[~2021-11-14] VITALS: Ht 170.2 cm; Wt 72.9 kg
== END 2021-11-14 18:44 | disposition home or self-care (01) ==
LOC: ED 14:06
DX: Z01.818 Encounter for other preprocedural examination (principal); N28.9 Disorder of kidney and ureter, unspecified; I10 Essential (primary) hypertension; E11.9 Type 2 diabetes mellitus without complications; Z88.0 Allergy status to penicillin; Z88.5 Allergy status to narcotic agent; Z79.899 Other long term (current) drug therapy
CPT/HCPCS: 36415; 76775; 80053; 81001; 85025; 85060; 87088; 99284-25; J7030